=== PATIENT | male | born 1945 | race Caucasian/White ===

== ENCOUNTER → 2016-04-02 | Outpatient (CLI) | payer OTHER ==
[~2016-04-02] MED LIST: IOPAMIDOL (ISOVUE-370) 150 ML BTL IV ONE
[2016-04-02 15:03] LABS: CREATININE 0.7 mg/dL (0.7-1.3); GLOMERULAR FILTRATION RATE > 60
--- NOTE | 2016-04-02 18:49 | CT ---
CT Angiography of the Abdomen and Pelvis Clinical Indications: Status post translumbar embolization August 30, 2015, of type II endoleak. Cont inued follow up. Technique: Thinly collimated multidetector helical data were obtained through the abdomen and pelvis during the administration of 100 mL of Isovue-370 IV contrast during the arterial phase of contrast enhancement. Repeat 5-mm images are obtained in venous phase. Images were then transferred to an in dependent workstation where multiplanar and three-dimensional reconstructions were performed by the r adiologist. Appropriate images were stored on PACS. Dose reduction techniques were utilized. Comparison: CT angiogram August 05, 2015. Findings CT Angiography: The type II endoleak at the posterolateral aspect of the sac is still present. The sac size is unchanged, at 5.9 x 5.4 cm. At this point, the exact source of this endoleak is unclear. Access into this sac is amenable from a posterolateral or even potentially an anterolateral approac h, with CT and fluoroscopy guidance combined. Otherwise, the stent-graft is without migration. Limbs are unchanged. CT Abdomen and Pelvis: Diverticulosis is again noted. There may be early diverticulitis at the ante rior aspect of the descending colon distally, image #314 of series #5. This is characterized by a si ngle diverticulum that shows some surrounding inflammation. No surrounding abscess or fluid collecti on. Moderate prostate enlargement is again noted. A right renal cyst is unchanged. Multiple calcificati ons in the liver and spleen are unchanged. The lung bases are clear. No developing adenopathy or ma ss. Impressions 1. Persistent endoleak, presumed type II. It is fairly low grade, not present in arterial phase, an d faint on venous phase. Nonetheless, it is contributing to a persistent sac size of 5.9 x 5.4 cm, w hich is larger than the preprocedural size of 4.7 x 4.9 cm. 2. Translumbar embolization is amenable from a percutaneous approach. It may need to be transcaval. 3. Query early developing diverticulitis involving an anterior diverticulum of the distal descending colon. I have discussed the above with the patient. We will call the patient to schedule for CT-fluoroscopy combined guided percutaneous sac embolization. The patient currently does not have any pain in the left lower quadrant, and is afebrile. He also do es not have a primary care physician at this point. I have asked the patient to keep track of his sy mptoms. If and when he develops pain and or fever, I have asked the patient to come to the Emergency Department for diagnosis and treatment of potential diverticulitis. E:jennifer
== END ==
LOC: FIMAGING 14:32
PROVIDERS: ATTEND Radiology Diagnostic Radiology
DX: Z09 Encounter for follow-up examination after completed treatment for conditions other than malignant neoplasm (principal); T82.898A Other specified complication of vascular prosthetic devices, implants and grafts, initial encounter; N40.0 Benign prostatic hyperplasia without lower urinary tract symptoms; K57.90 Diverticulosis of intestine, part unspecified, without perforation or abscess without bleeding
CPT/HCPCS: 74174; Q9967

== ENCOUNTER 2016-04-12 07:35 | Day surgery (SDC) | payer OTHER ==
[2016-04-12] MEDS ORDERED: PHENYLEPHRINE 10 MG/ML SDV ONE (07:58)
[2016-04-12 08:22] LABS: HEMATOCRIT 51.6 % (40.0-51.0); HEMOGLOBIN 18.2 g/dL (13.7-17.5)
[2016-04-12 08:38] LABS: INR 1.04 (0.83-1.16); PROTIME(PATIENT) 13.5 SEC (12.0-15.0)
[2016-04-12 08:39] LABS: APTT 28.2 SEC (23.0-38.0)
[2016-04-12 10:03] LABS: % IMMATURE GRANULYOCYTES 0.5 % (0.0-1.1); ABSOLUTE IMMATURE GRANULOCYTES 0.02 10^3/uL (0.00-0.10); ADD DIFF? NO; ADD MORPH? NO; ADD SCAN? NO; ATYPICAL LYMPHOCYTE FLAG 10 (0-99); FRAGMENT RBC FLAG 0 (0-99); HEMATOCRIT 50.9 % (40.0-51.0); HEMOGLOBIN 18.2 g/dL (13.7-17.5); LEFT SHIFT FLG 0 (0-99); LIPEMIA HEMOLYSIS FLAG 90 (0-99); MEAN CELL HEMOGLOBIN 37.6 pg (27.9-34.1); MEAN CELL HEMOGLOBIN CONCENTR. 35.8 g/dL (32.4-36.7); MEAN CELL VOLUME 105.2 fL (81.5-99.8); MEAN PLATELET VOLUME 10.8 fL (8.7-11.7); PLATELET CLUMPS FLAG 0 (0-99); PLATELET COUNT 116 10^3/uL (150-400); RED BLOOD CELL COUNT 4.84 10^6/uL (4.40-6.38); RED CELL DISTRIBUTION WIDTH 13.1 % (11.5-15.2)
[2016-04-12 10:27] LABS: ANION GAP 11 mEq/L (8-16); CALCIUM 8.5 mg/dL (8.5-10.4); CARBON DIOXIDE 26 mEq/l (22-31); CHLORIDE 105 mEq/L (97-110); CREATININE 0.7 mg/dL (0.7-1.3); GLOMERULAR FILTRATION RATE > 60; GLUCOSE 114 mg/dL (70-100); POTASSIUM 5.6 mEq/L (3.5-5.2); SODIUM 142 mEq/L (134-144); SPECIMEN HEMOLYSIS 194
--- NOTE | 2016-04-12 10:57 | CPEKG ---
Heart Rate: 88 RR Interval: 682 P-R Interval: 192 QRSD Interval: 140 QT Interval: 380 QTC Interval: 460 P [place]: 17 QRS [place]: -76 T Wave [place]: 28 EKG Severity - ABNORMAL ECG - EKG Impression: SINUS RHYTHM EKG Impression: RBBB AND LAFB Electronically Signed By: Chau Hadley 12-Apr-2016 19:18:00
--- NOTE | 2016-04-12 11:43 | DX ---
Portable Chest, Single View on April 12, 2016 History: Preoperative evaluation. Aneurysm. COPD. Comparison: July 2011. Findings: Heart size is within normal limits. Aorta is tortuous indicating atherosclerotic disease. C alcified hilar lymph nodes are seen bilaterally and calcified pulmonary nodules bilaterally indicatin g chronic granulomatous disease, stable in appearance. No evidence of acute airspace consolidation. N o evidence for pleural effusion or pneumothorax. Degenerative change is seen in the cervical spine an d thoracic spine. Impression: No evidence for acute cardiopulmonary abnormality. Chronic findings as above.
[2016-04-12] MEDS ORDERED: MIDAZOLAM 2 MG/2 ML VIAL ONE (13:04)
[2016-04-12] MEDS ORDERED: ROCURONIUM 100 MG/10 ML VIAL ONE (13:25)
[2016-04-12] MEDS ORDERED: SUCCINYLCHOLINE CHLORIDE 200 MG/10 ML VIAL ONE (13:25)
[2016-04-12] MEDS ORDERED: PROPOFOL 200 MG/20 ML VIAL ONE (14:40)
[2016-04-12] MEDS ORDERED: PROPOFOL/EMULSION 500 MG/50 ML BOTTLE IV ONE (14:40)
[2016-04-12] MEDS ORDERED: fentaNYL 100 MCG/2 ML INJ ONE ×2 (15:55→18:49)
[2016-04-12] MEDS ORDERED: IOPAMIDOL (ISOVUE-300) 100 ML BTL IV ONE (18:58)
--- NOTE | 2016-04-13 18:43 | CT ---
CT-Guided Aneurysm Sac Access Fluoroscopy-Guided Aneurysm Sac Embolization Indication: Type II endoleak. Enlarging sac size. Informed Consent: Obtained from the patient. Risks and benefits were discussed. Crosscutting Measure: Patient's current list of medications including all known prescriptions, over- the-counters, herbals, and vitamin/mineral/dietary supplements are reviewed. Medications' name, dosa ge, frequency, and route of administration are confirmed. Patient is a non-smoker. Prophylactic Antibiotic: Ancef, 2 g, was ordered and administered for antimicrobial prophylaxis. Discontinuation of Prophylactic Antibiotic: Prophylactic antibiotic was given within 4 hours prior t o incision. There was an order to discontinue the antibiotic within 24 hours of procedure end time. VTE Prophylaxis: VTE prophylaxis is not medically necessary for this procedure. Technique: Patient is placed in prone position. A "timeout" procedure was performed to identify the correct patient and the correct procedure. 1% Xylocaine was used for local anesthetic. All element s of maximal sterile barrier technique, including cap, mask, sterile gown, sterile gloves, large ster ile sheet, hand hygiene, and 2% chlorhexidine for cutaneous antisepsis, followed. When ultrasound is used, sterile gel and probe covers are used. Right posterolateral approach is chosen. A grid is placed on the patient. A skin amari is performed. Under CT guidance, the access site is localized, an 18-gauge, 20-cm Chiba needle is inserted, and a dvanced under CT guidance eventually until it enters the sac at the location of the leak. Landmarks are used. When the stylet was removed, brisk blood flow returned, indicating access into the endoleak. 0.035, 8-cm Amplatz wire was then advanced through the needle, and coiled in the aneurysm sac. Needle was t hen removed. The wire was then coiled externally and secured in place. The patient was then transferred in prone position to Interventional Radiology. Under biplane fluoro scopy, Kumpe catheter was advanced over the wire into the sac. Saccogram was performed, showing two 1-mm size lumbar arteries, one superior, one inferior, that is contributing to the leak. Dave embolization was performed. A total of 8 vials of [place] was subsequently administered using road map technique. This satisfactorily covered all of the superior and inferior distribution of the aneu rysm sac. On the right side anteriorly, coil embolization was performed using 14-mm Belkis coils. On the left, attempt was made to back coil with Nesters after [place] embolization. This did not prove to be succes sful. However, at that point, there was absolutely no return of blood through the hub of the Kumpe c atheter. The leak has stopped. Fluoroscopy: 21.4 minutes, 26 images. Impressions 1. Type II endoleak from two very small lumbar arteries. 2. Sac embolization performed via percutaneous approach with both [place] and Belkis coils. Medication: General anesthesia was provided. Comment: With every incision and needle stick, this patient has significant bleeding, more so than w ould be expected with normal needle sticks and incisions. His platelet count was low 100s. His louisa tocrit was normal. His coagulation panel was normal. The degree of oozing he had with needle sticks suggests to me the possibility of poor platelet functi on. This indirectly suggests to me liver disease. The patient is known to be a heavy drinker. I th ink this actually has contributed to presence of a persistent endoleak because 1-mm vessels in genera l do not cause type II endoleaks. This was discussed in detail with the patient's . I have asked him to perhaps follow up with the patient's primary care physician to further discuss potential evaluation, if needed.
== END 2016-04-12 21:05 | disposition home or self-care (01) ==
LOC: FIMAGING 07:35
PROVIDERS: ATTEND Radiology Diagnostic Radiology
PROC: 04L03DZ Occlusion of Abdominal Aorta with Intraluminal Device, Percutaneous Approach (ICD-10-PCS; principal; 2016-04-12 18:55)
DX: T82.898A Other specified complication of vascular prosthetic devices, implants and grafts, initial encounter (principal); I71.4 Abdominal aortic aneurysm, without rupture; J44.9 Chronic obstructive pulmonary disease, unspecified; F17.200 Nicotine dependence, unspecified, uncomplicated
CPT/HCPCS: 37242; 71010; 75894; 77012; 93005; C1769; J0330; J1644; J2250; J2370; J2704; J3010; Q9967

== ENCOUNTER 2016-09-24 10:45 | Inpatient (IN) | payer OTHER ==
--- NOTE | 2016-09-24 10:50 | CPEKG ---
Heart Rate: 162 RR Interval: 370 P-R Interval: 150 QRSD Interval: 136 QT Interval: 304 QTC Interval: 500 P [place]: 0 QRS [place]: -69 T Wave [place]: 4 EKG Severity - ABNORMAL ECG - EKG Impression: WIDE COMPLEX TACHYCARDIA EKG Impression: RIGHT BUNDLE BRANCH BLOCK Electronically Signed By: Fabian Banerjee 24-Sep-2016 14:57:55
[2016-09-24] MEDS ORDERED: ADENOSINE 6 MG/2 ML VIAL ONE (10:59)
--- NOTE | 2016-09-24 11:03 | EDPHY ---
H & P - Personal History Tetanus Vaccine Date: 1997 - Medical/Surgical History Hx Diabetes: No - Social History Smoking Status: Current every day smoker Constitutional: Initial Vital Signs Temperature (C) 36.7 C 09/24/16 10:45 Heart Rate 160 H 09/24/16 10:45 Respiratory Rate 20 09/24/16 10:45 Blood Pressure 116/95 H 09/24/16 10:45 O2 Sat (%) 87 L 09/24/16 10:45 O2 Delivery Mode Nasal Cannula O2 (L/minute) 2 Allergies/Adverse Reactions: CATS Allergy (Mild, Uncoded 09/24/16 11:01) SNEEZING/RED EYES Home Medications: Medication Instructions Recorded Budesonide/Formoterol 160/4.5 1 puffs IH BID 09/24/16 [Symbicort 160-4.5 Mcg Inh (*)] Furosemide [Lasix 40 MG (*)] 60 mg PO DAILY 09/24/16 Multivitamins [Multivitamin (*)] 1 each PO Q2D 09/24/16 Medical Decision Making ED Course/Re-evaluation: CHIEF COMPLAINT: Rapid heart rate, dyspnea HISTORY OF PRESENT ILLNESS: This is a 71 y/o male with no prior diagnosed cardiac history complaining of with rapid heart rate for the last 1-2 weeks with acute onset dyspnea this morning. He has a history of COPD and requires home O2 at night. He started Lasix 3 weeks ago for leg swelling without improvement. He's had no prior cardiac workups. He denies abdominal pain, vomiting, diaphoresis, chest pain, fever, cough, recent illness, or recent no recent illness, medication changes apart from Lasix. REVIEW OF SYSTEMS: A 10 point review of systems was performed and is negative with the exception of the elements mentioned in the history of present illness. PHYSICAL EXAM: HR, BP, O2 Sat, RR. Temp noted General Appearance: Alert, well hydrated, appropriate, obese, and non-toxic appearing. Head: Atraumatic without scalp tenderness or obvious injury Eyes: Pupils equal, round, reactive to light and accommodation, EOMI, no trauma , no injection. Nose: Atraumatic, no rhinorrhea, clear. Throat: Mucus membranes moist. Neck: Supple, non-tender, no lymphadenopathy. Respiratory: No retractions, no distress, no wheezes, and no accessory muscle use. Lungs are clear to auscultation bilaterally. Cardiovascular: Tachycardic rate and rhythm, no murmurs, rubs, or gallops. Good capillary refill all extremities. Gastrointestinal: Abdomen is soft, non-tender, non-distended, no masses, no rebound, no guarding, no peritoneal signs. Musculoskeletal: Normal active ROM of all extremities, atraumatic. Bilateral pedal edema. Neurological: Alert, appropriate, and interactive. Nonfocal neuro exam. Skin: No rashes, good turgor, no nodules on palpation. PAST MEDICAL HISTORY: COPD - home O2 at night PAST SURGICAL HISTORY: Denies SOCIAL HISTORY: PCP: [facility] DIAGNOSTICS/PROCEDURES/CRITICAL CARE TIME: The 12 lead EKG was interpreted by myself. Wide complex tachycardia rate around 160. See hard copy and/or "tracemaster" electronic copy for interpretation. Repeat 12 lead EKG performed at double speed after Diltazem was interpreted by myself and shows atrial fibrillation with rapid rate. See hard copy and/or "tracemaster" electronic copy for interpretation. Critical care time spent by me, Dr. Banerjee, exclusively with this patient was 40 minutes, exclusive of PA time and exclusive of procedures. The organ system at risk was cardiovascular and respiratory and I gave IVF, Diltazem, adenosine, consulted with information assurance manager, and admitted patient prevent worsening of the patient's condition. DIFFERENTIAL DIAGNOSIS: The differential diagnosis for the patient's wide complex tachycardia included but was not limited to various causes of sinus tachycardia such as dehydration and medicines, SVT, atrial flutter, atrial fibrillation, pulmonary causes. MEDICAL DECISION MAKING: This is a 71 y/o male with no documented prior cardiac history who presents with a 1-2 week history of rapid heart rate and acute onset dyspnea this morning. He has an initial HR around 160, BP 124/102, 94% on O2. His EKG shows wide complex tachycardia. Because he has had symptoms for several days, we cannot safely perform a cardioversion at this time. Plan for IV, labs, cardiac monitoring, and IV adenosine. 1102: 12mg IV Adenosine administered. No change in rhythm. 20mg IV Diltazem and Diltazem drip ordered. Patient will require admission. 1115: Reassessed patient. Rate improved to rate around 130. Consulted with HERMAN Henriquez, cardiology. They will follow patient's admission. Heparin IV ordered. 1126: Dr. Medina accepts admission for rapid atrial fibrillation. 1250: Reassessed patient. He is feeling much improved. Rate now 110. - Data Points Laboratory Results: Laboratory Results 09/24/16 10:50 09/24/16 10:50 09/24/16 09/24/16 09/24/16 11:21 10:50 10:50 WBC RBC Hgb Hct MCV MCH MCHC RDW Plt Count MPV Neut % (Auto) Lymph % (Auto) [place] % (Auto) Eos % (Auto) Baso % (Auto) Nucleat RBC Rel Count Absolute Neuts (auto) Absolute Lymphs (auto) Absolute Monos (auto) Absolute Eos (auto) Absolute Basos (auto) Absolute Nucleated RBC Immature Gran % Immature Gran # PT 15.1 SEC H SEC (12.0-15.0) INR 1.19 H (0.83-1.16) APTT 28.0 SEC SEC (23.0-38.0) Sodium 138 mEq/L mEq/L (134-144) Potassium 4.7 mEq/L mEq/L (3.5-5.2) Chloride 95 mEq/L L mEq/L (97-110) Carbon Dioxide 27 mEq/l mEq/l (22-31) Anion Gap 16 mEq/L mEq/L (8-16) BUN 17 mg/dL mg/dL (7-23) Creatinine 0.9 mg/dL mg/dL (0.7-1.3) Estimated GFR > 60 Glucose 138 mg/dL H mg/dL (70-100) Calcium 9.2 mg/dL mg/dL (8.5-10.4) Magnesium 1.8 mg/dL mg/dL 1.9 mg/dL mg/dL (1.6-2.3) (1.6-2.3) Troponin I 0.042 ng/mL H ng/mL (0-0.034) NT-Pro-B Natriuret Pep 2100 pg/mL H pg/mL (0-125) 09/24/16 10:50 WBC 5.97 10^3/uL 10^3/uL (3.80-9.50) RBC 4.69 10^6/uL 10^6/uL (4.40-6.38) Hgb 17.4 g/dL g/dL (13.7-17.5) Hct 51.4 % H % (40.0-51.0) MCV 109.6 fL H fL (81.5-99.8) MCH 37.1 pg H pg (27.9-34.1) MCHC 33.9 g/dL g/dL (32.4-36.7) RDW 14.1 % % (11.5-15.2) Plt Count 101 10^3/uL L 10^3/uL (150-400) MPV 11.5 fL fL (8.7-11.7) Neut % (Auto) 61.4 % % (39.3-74.2) Lymph % (Auto) 23.8 % % (15.0-45.0) [place] % (Auto) 12.9 % % (4.5-13.0) Eos % (Auto) 0.5 % L % (0.6-7.6) Baso % (Auto) 0.7 % % (0.3-1.7) Nucleat RBC Rel Count 0.0 % % (0.0-0.2) Absolute Neuts (auto) 3.67 10^3/uL 10^3/uL (1.70-6.50) Absolute Lymphs (auto) 1.42 10^3/uL 10^3/uL (1.00-3.00) Absolute Monos (auto) 0.77 10^3/uL 10^3/uL (0.30-0.80) Absolute Eos (auto) 0.03 10^3/uL 10^3/uL (0.03-0.40) Absolute Basos (auto) 0.04 10^3/uL 10^3/uL (0.02-0.10) Absolute Nucleated RBC 0.00 10^3/uL 10^3/uL (0-0.01) Immature Gran % 0.7 % % (0.0-1.1) Immature Gran # 0.04 10^3/uL 10^3/uL (0.00-0.10) PT INR APTT Sodium Potassium Chloride Carbon Dioxide Anion Gap BUN Creatinine Estimated GFR Glucose Calcium Magnesium Troponin I NT-Pro-B Natriuret Pep Medications Given: Discontinued Medications Adenosine (Adenosine) 12 mg IVP EDNOW ONE Stop: 09/24/16 11:06 Last Admin: 09/24/16 11:12 Dose: 12 mg Diltiazem HCl (Cardizem 25 Mg/5 Ml Vial) 20 mg IVP EDNOW ONE Stop: 09/24/16 11:06 Last Admin: 09/24/16 11:12 Dose: 20 mg Heparin Sodium (Porcine) (Heparin Injection) 0 unit IVP EDNOW ONE PRN Reason: Protocol Stop: 09/24/16 11:22 Last Admin: 09/24/16 11:43 Dose: 6,500 units Diltiazem HCl 125 mg/ Dextrose 125 mls @ 0 mls/hr IV EDNOW ONE; As Directed PRN Reason: Protocol Stop: 09/24/16 11:06 Last Admin: 09/24/16 11:29 Dose: 125 mls Heparin Sodium (Porcine) (Heparin 50 Units/Ml (Premix)) 500 mls @ 0 mls/hr IV EDNOW ONE; Per Protocol PRN Reason: Protocol Stop: 09/24/16 11:22 Last Admin: 09/24/16 11:43 Dose: 500 mls Departure - Departure Disposition: [facility] Inpatient Acute Clinical Impression: Rapid atrial fibrillation, Peripheral edema Dyspnea Qualifiers: Dyspnea type: shortness of breath Qualified Code(s): R06.02 - Shortness of breath Condition: Fair Report Scribed for: Fabian Banerjee Report Scribed by: Lay Gutiérrez Date of Report: 09/24/16 Time of Report: 11:14
[2016-09-24] MEDS ORDERED: ADENOSINE 6 MG/2 ML VIAL IVP ONE (11:05)
[2016-09-24] MEDS ORDERED: DILTIAZEM 25 MG/5 ML VIAL IVP ONE ×2 (11:05)
[2016-09-24] MEDS ORDERED: DILTIAZEM 125 MG in D5W 125 ML IV ONE (11:05)
[2016-09-24] MEDS ORDERED: HEPARIN 10,000 UNIT/10 ML MDV IVP ONE (11:21)
[2016-09-24] MEDS ORDERED: HEPARIN/DEXTROSE 500 ML IV ONE (11:21)
[2016-09-24 11:31] LABS: INR 1.19 (0.83-1.16); PROTIME(PATIENT) 15.1 SEC (12.0-15.0)
[2016-09-24 11:36] LABS: % IMMATURE GRANULYOCYTES 0.7 % (0.0-1.1); ABSOLUTE IMMATURE GRANULOCYTES 0.04 10^3/uL (0.00-0.10); ADD DIFF? NO; ADD MORPH? NO; ADD SCAN? NO; ATYPICAL LYMPHOCYTE FLAG 0 (0-99); FRAGMENT RBC FLAG 0 (0-99); HEMATOCRIT 51.4 % (40.0-51.0); HEMOGLOBIN 17.4 g/dL (13.7-17.5); LEFT SHIFT FLG 20 (0-99); LIPEMIA HEMOLYSIS FLAG 90 (0-99); MEAN CELL HEMOGLOBIN 37.1 pg (27.9-34.1); MEAN CELL HEMOGLOBIN CONCENTR. 33.9 g/dL (32.4-36.7); MEAN CELL VOLUME 109.6 fL (81.5-99.8); MEAN PLATELET VOLUME 11.5 fL (8.7-11.7); PLATELET CLUMPS FLAG 10 (0-99); PLATELET COUNT 101 10^3/uL (150-400); RED BLOOD CELL COUNT 4.69 10^6/uL (4.40-6.38); RED CELL DISTRIBUTION WIDTH 14.1 % (11.5-15.2)
--- NOTE | 2016-09-24 11:41 | CPEKG ---
Heart Rate: 130 RR Interval: 462 QRSD Interval: 138 QT Interval: 336 QTC Interval: 494 QRS [place]: -71 T Wave [place]: -48 EKG Severity - ABNORMAL ECG - EKG Impression: ATRIAL FLUTTER, A-RATE 312 EKG Impression: RIGHT BUNDLE BRANCH BLOCK EKG Impression: INFERIOR INFARCT, AGE INDETERMINATE Electronically Signed By: Fabian Banerjee 24-Sep-2016 14:57:55
[2016-09-24 11:47] LABS: ANION GAP 16 mEq/L (8-16); CALCIUM 9.2 mg/dL (8.5-10.4); CARBON DIOXIDE 27 mEq/l (22-31); CHLORIDE 95 mEq/L (97-110); CREATININE 0.9 mg/dL (0.7-1.3); GLOMERULAR FILTRATION RATE > 60; GLUCOSE 138 mg/dL (70-100); MAGNESIUM 1.9 mg/dL (1.6-2.3); POTASSIUM 4.7 mEq/L (3.5-5.2); SODIUM 138 mEq/L (134-144)
[2016-09-24 12:36] LABS: MAGNESIUM 1.8 mg/dL (1.6-2.3)
[2016-09-24 12:49] LABS: TROPONIN I 0.042 ng/mL (0-0.034)
[2016-09-24] MEDS ORDERED: ONDANSETRON DISINTEGRATING 4 MG TAB PO PRN (13:51)
[2016-09-24] MEDS ORDERED: oxyCODONE IR 5 MG TAB PO PRN (13:51)
[2016-09-24] MEDS ORDERED: ACETAMINOPHEN 325 MG TAB PO PRN (13:51)
[2016-09-24] MEDS ORDERED: ONDANSETRON 4 MG/2 ML VIAL IVP PRN (13:51)
[2016-09-24] MEDS ORDERED: HEPARIN 10,000 UNIT/10 ML MDV IVP PRN (13:57)
[2016-09-24] MEDS ORDERED: DILTIAZEM 125 MG in D5W 125 ML IV SCH (14:00)
[2016-09-24] MEDS ORDERED: HEPARIN/DEXTROSE 500 ML IV SCH (14:00)
--- NOTE | 2016-09-24 14:29 | GHP ---
[f rep st] HISTORY AND PHYSICAL DATE OF ADMISSION: 09/24/2016 CHIEF COMPLAINT: Peripheral edema. HISTORY OF PRESENT ILLNESS: This is a 71-year-old man with no previous cardiac history who presents with worsening peripheral edema. This started about 1 month ago. It is also associated with some shortness of breath that is worse when he is lying down, about a 20 pound weight gain. He has not h ad any palpitations or chest pain. He saw his family practice doctor about 3 weeks ago, started him on Lasix and ordered an echocardiogram. He thus presented to the ED today with ongoing worsening s hortness of breath. In the ED he was found to be in atrial fibrillation with RVR. He received adenosine without respons e. Started on a diltiazem drip. PAST MEDICAL/SURGICAL HISTORY: 1. COPD. 2. Ongoing tobacco use. 3. Chronic respiratory failure using nocturnal oxygen. 4. Abdominal aortic aneurysm status post stenting. 5. Distant foot surgery. MEDICATIONS: Please see medication reconciliation. ALLERGIES: Cats. FAMILY HISTORY: His father had atrial fibrillation. SOCIAL HISTORY: Smokes and drinks about a double a night. REVIEW OF SYSTEMS: A 10-point review of systems is conducted and is negative except per HPI. PHYSICAL EXAM: VITAL SIGNS: Blood pressure 105/78, heart rate 110, respiration rate 18, saturating 92% on 2 L. Temperature 36.8. GENERAL: The patient is a very pleasant man who is resting in bed comfortably, in no acute distress. HEENT: Shows him to be normocephalic, atraumatic. CARDIOVASCUL AR: Exam shows him to be tachycardic. He is irregularly irregular. I do not appreciate any murmur s, rubs, or gallops though they are difficult to hear given his rapid heart rate. ABDOMEN: Is mild ly distended, soft, no masses appreciated. PULMONARY: Shows lungs with mild external wheezes. The re are no rales. SKIN: Exam shows no rash. exam: No Moe. NEUROLOGIC: Exam shows him to be alert and oriented x3. He is moving all extremities. PSYCHIATRIC: Exam shows normal mood and aff ect. EXTREMITIES: Shows him to have 3+ bilateral lower extremity edema. LABS: His MCV is 109, initial INR was 1.19. Basic metabolic panel is normal. Initial troponin 0.0 42. BNP is 2100. DATA: 1. I reviewed his chart, including Dr. Banerjee's note as well as previous admission for triple A st enting. 2. ECG, which I personally viewed and interpreted, shows him to be in A flutter. He is rapid. He has a right bundle branch block. He has Q-waves in his inferior leads. IMPRESSION AND PLAN: This is a 71-year-old man with new atrial fibrillation with RVR as well as hea rt failure. 1. Atrial fibrillation with rapid ventricular response: New diagnosis. Better controlled on dilti azem. I will continue his diltiazem drip. He has also been instituted on a heparin drip, I will sw itch him to Lovenox tonight. Cardiology has been alerted. Unclear etiology. This is associated wi th some heart failure. Agree with echocardiogram which has been performed, but not read yet. He harrison s a right bundle branch block as well as Q-waves in his inferior leads. We will trend his troponins . Query left heart catheterization during this admission as well per Cardiology. 2. Chronic obstructive pulmonary disease/tobacco use: We will check a chest x-ray to look for othe r signs of left-sided heart failure. Otherwise, we will continue his inhalers and provide him suppl emental oxygen as needed. 3. Alcohol use/macrocytosis: Does not appear to be in withdrawal or acutely intoxicated. Not sure if he is underestimating the amount that he drinks or not. We will follow him for withdrawal thoug h I am hopeful that we will not have this issue. 4. AAA status post stent: He clearly has known vascular disease. 5. Code status: He would like to be full code. His POA would be Ligia Jefferson, his . /[id number]/MODL
[2016-09-24] MEDS: NICOTINE 21 MG/24 HR PATCH TD SCH (15:50)
--- NOTE | 2016-09-24 16:11 | ECHO ---
[id number] + + [address] : : [place] [address] : : [phone] + + Adult Echocardiographic Report + -----+ :Name: NARA KIMBALL SStudy Date: 09/24/2016 11:59 AM BP: 115/70 mmHg : : Hospital Admission Number: [id number] Location : 2: :: 1945 Gender: Male Height: 73 in : :Age: 71 yrs Race: WH Weight: 240 lb : :Reason For Study: chest pain afib : : BSA: 2.3 meters2 : :History: edema, sob rapid a-fib : + -----+ MMode/2D Measurements \T\ Calculations IVSd: 1.2 cm RVDd: 3.9 cm FS: 28.3 % % IVS thick: 8.6 % IVSs: 1.3 cm LVIDd: 5.6 cm EDV(Teich): LVPWd: 1.2 cm LVIDs: 4.0 cm 150.5 ml LVPWs: 1.9 cm ESV(Teich): 69.2 ml EF(Teich): 54.0 % MV Diam: 4.1 cm Ao root diam: LVOT diam: 2.3 cm LVLd ap4: 8.7 cm 3.5 cm LVOT area: 4.2 cm2 EDV(MOD-sp4): 165.0 ml LVLs ap4: 7.4 cm ESV(MOD-sp4): 90.0 ml EF(MOD-sp4): 45.5 % SV(MOD-sp4): 75.0 ml Normal Measurement Values: + + :LVIDd (3.5-5.7cm) IVSd (0.6-1.1cm) LVPWd (0.6-1.1cm) Aortic Root (2.0-3.7cm)Left Atrium (1.5-4.0cm): :LV Vol(d) (76-115ml) LV Vol(s) (29-48ml) Ejec Fraction (50-65%)PV Gigi (0.6- 1.2m/s) TV Gigi (0.4-1.0m/s) : :MV E Gigi (0.8-1.0m/s)MV A Gigi (0.3-1.0m/s)LVOT Gigi (0.7-1.2m/s) Asc Ao Gigi ( 0.9-1.8m/s) : + + Doppler Measurements \T\ Calculations MV E max gigi: MV area (1 diam): Ao V2 max: LV V1 max: 102.0 cm/sec 13.2 cm2 96.8 cm/sec 85.2 cm/sec MV Flow area(1diam):Ao max PG: LV V1 max P.8 mmHg 2.9 mmHg 13.2 cm2 KAN(V,D): 3.7 cm2LV V1 mean P.0 mmHg LV V1 mean: 64.4 cm/sec LV V1 VTI: 13.3 cm MR max gigi: SV(LVOT): 55.3 ml PA V2 max: TR max gigi: 454.0 cm/sec 54.8 cm/sec 223.3 cm/sec MR max PG: PA max PG: TR max P.4 mmHg 1.2 mmHg 20.3 mmHg RAP systole: 15.0 mmHg RVSP(TR): 35.3 mmHg Left Ventricle The left ventricle is normal in size. There is mild concentric left ventricular hypertrophy. Left ventricular systolic function is mildly reduced. Ejection Fraction = 45%. Diastolic Function Indeterminate due to atrial fibrillation.. Difficult to assess for regional wall motion due to rapid atrial fibrillation. Right Ventricle Borderline right ventricular enlargement. The right ventricular systolic function is mildly reduced. Atria The left atrium is mild to moderately dilated. The Left Atrial Volume is 40 ml/m2. The right atrium is mildly dilated. A dilated inferior vena cava suggests increased right atrial pressure. The lack of respiratory variation in the inferior vena cava diameter is noted. Mitral Valve The mitral valve leaflets appear thickened, but open well. There is no mitral valve stenosis. There is moderate to severe mitral regurgitation. The mitral regurgitant jet is eccentrically directed. Mild pulmonary vein reversal noted. The mitral regurgitant jet is anteriorly directed, which is consistent with posterior leaflet pathology. Tricuspid Valve The tricuspid valve is normal in structure and function. There is no tricuspid stenosis. There is mild tricuspid regurgitation. Right ventricular systolic pressure is 35mmHg. There is Doppler evidence for mild pulmonary hypertension. Aortic Valve The aortic valve is trileaflet. There is no aortic stenosis. There is no aortic insufficiency. Pulmonic Valve The pulmonic valve is not well visualized. There is no pulmonic valvular regurgitation. Great Vessels The aortic root is normal size. Borderline dilated ascending aorta. Pericardium/Pleural trivial pericardial effusion. Conclusion A two-dimensional transthoracic echocardiogram with pulsed and continuous Doppler was performed. Patient's rhythm is rapid atrial fibrillation. There is mild concentric left ventricular hypertrophy. Left ventricular systolic function is mildly reduced. Ejection Fraction = 45%. Difficult to assess for regional wall motion due to rapid atrial fibrillation. Diastolic Function Indeterminate due to atrial fibrillation.. Borderline right ventricular enlargement. The right ventricular systolic function is mildly reduced. The left atrium is mild to moderately dilated. The Left Atrial Volume is 40 ml/m2. The right atrium is mildly dilated. A dilated inferior vena cava suggests increased right atrial pressure. The lack of respiratory variation in the inferior vena cava diameter is noted. There is moderate to severe mitral regurgitation. The mitral regurgitant jet is eccentrically directed. The mitral regurgitant jet is anteriorly directed, which is consistent with posterior leaflet pathology. Mild pulmonary vein reversal noted. There is mild tricuspid regurgitation. There is Doppler evidence for mild pulmonary hypertension. Right ventricular systolic pressure is 35mmHg. Borderline dilated ascending aorta. Trivial pericardial effusion. Final Reading Physician: Kirk Murillo signed on 09/24/2016 04:10 PM Ordering Physician: Martinez Romano Performed By: Marta Bauman
[2016-09-24 17:15] LABS: COLOR YELLOW; LEUKOCYTE ESTERASE,URINE NEGATIVE (NEGATIVE); NITRITE,URINE NEGATIVE (NEGATIVE)
[2016-09-24] MEDS: ENOXAPARIN 120 MG/0.8 ML SYR SC SCH (20:52)
[2016-09-24] MEDS: BUDESONIDE/FORMOTEROL 160/4.5 60 PUFFS/MDI IH SCH (20:54)
--- NOTE | 2016-09-24 21:39 | GCON ---
[f rep st] CONSULTATION CARDIOLOGY CONSULTATION DATE OF CONSULTATION: 09/24/2016 REFERRING PHYSICIAN: Raj Medina MD REASON FOR CONSULTATION: 1. Persistent new onset atrial flutter with a rapid ventricular response of unknown duration. 2. Probable nonischemic cardiomyopathy. 3. Acute systolic congestive heart failure. HISTORY OF PRESENT ILLNESS: The patient is a 71-year-old male with no prior cardiac history. He pr esented to the emergency room today because of progressively worsening dyspnea on exertion and moder ate to severe lower extremity edema. He says that these issues had been slowly worsening over the p ast 4 weeks or so. It finally reached the point that he felt he needed to seek medical attention. In the emergency room, his EKG demonstrated atrial flutter with a ventricular rate of 160 BPM. The patient says that he did not have a sensation of palpitations or tachycardia. His troponin was mini mick elevated at 0.042 and his BNP was elevated at 2100. 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 He underwent an embolization procedure in March of this year for endoleak. In 2009 a nuclear str ess test was abnormal and led to a cardiac catheterization which demonstrated normal left ventricula r systolic function and angiographically normal coronary arteries. PAST MEDICAL HISTORY: 1. COPD. His COPD is graded as moderate. He is followed by Dr. Rashad Ortega. 2. Hypertension. This was an issue in the past, but he has not been on antihypertensive medication for the past several years. 3. Chronic right bundle branch block. MEDICATIONS: His home medications consist of Symbicort and Lasix 40 mg daily, which was started rec ently because of his edema. ALLERGIES: No known drug allergies. FAMILY HISTORY: Noncontributory. SOCIAL HISTORY: He is . He has adult offspring. 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 If he continues to smoke and has done so all of his adult life. He currently smokes a half pa ck per day. He has a double cocktail most evenings. REVIEW OF SYSTEMS: Apart from the issues mentioned in the history of present illness, a 10-point re view was negative. PHYSICAL EXAMINATION: VITAL SIGNS: Heart rate in the 80s with atrial flutter on the monitor. Bloo d pressure 105/69, O2 saturation 92% on 2 L of nasal cannula oxygen. GENERAL: An obese, elderly ma le in no acute distress. He is alert and oriented x3. HEAD AND NECK: No scleral icterus. Mucous membranes moist. Carotid pulses 2+ without bruits. There is no JVD. CHEST: Lung gomez clear to auscultation bilaterally. CARDIAC: Irregular rhythm at a normal rate. No murmur, rub, or gallop. ABDOMEN: Soft, nontender, nondistended without masses. EXTREMITIES: 2+ pulses. He has at least 3+ bilateral lower extremity edema. LABORATORY STUDIES: Sodium 138, potassium 4.7, BUN and creatinine 17 and 0.9. Troponin 0.042. BNP 2100. TSH is normal at 4.11. His CBC demonstrates a white blood cell count of 5.97 with hemoglobi n and hematocrit of 17.4 and 51.4. Platelet count 101,000. ECG: His initial ECG demonstrated atrial flutter with a ventricular rate of 162 BPM. He has a righ t bundle branch block which had been seen on old ECGs as well. His 2nd ECG following initiation of intravenous diltiazem demonstrated atrial flutter with classic negative saw-toothed waves in the inf erior leads. Ventricular rate was approximately 50 BPM. He has inferior Q-waves which have also be en seen on previous ECGs. Echocardiogram: Please refer to the formal echocardiographic report. He has a normal left ventricu lar chamber size. LV ejection fraction is moderately decreased at 45%. There is no regional variat ion in contractility. He has mild mitral leaflet thickening and at least moderate anteriorly direct ed mitral regurgitation. Mild tricuspid regurgitation is present with an estimated PA systolic pres sure of 35 mmHg. IMPRESSION: This is a 71-year-old male who now presents with acute systolic congestive heart failur e. He has significant mitral regurgitation which is likely contributing. He was found to be in per sistent atrial flutter with a rapid ventricular response. I suspect this arrhythmia started few wee ks ago and has culminated in moderately reduced left ventricular function. He is now rate controlle d on intravenous diltiazem. Intravenous heparin has been started as well. His blood pressure has b een marginal. Therefore, intravenous Lasix has not been started yet. PLAN: We will continue his intravenous diltiazem overnight. He will be n.p.o. after midnight for p otential SULLY-guided cardioversion tomorrow. We will plan on transitioning him to an oral calcium ch astrid shelby. Options for antiarrhythmic therapy and ablation are available if he has recurrences of his atrial arrhythmia. He will need to be followed longitudinally and reassessed in approximatel y 3 months for recovery of his left ventricular function. As soon as feasible, diuresis needs to be started. /[id number]/MODL
[2016-09-24] MEDS: TEMAZEPAM 15 MG CAP PO PRN (22:47)
[2016-09-25] MEDS: TEMAZEPAM 15 MG CAP PO PRN (00:31)
[2016-09-25 05:27] LABS: % IMMATURE GRANULYOCYTES 0.8 % (0.0-1.1); ABSOLUTE IMMATURE GRANULOCYTES 0.05 10^3/uL (0.00-0.10); ADD DIFF? NO; ADD MORPH? NO; ADD SCAN? NO; ATYPICAL LYMPHOCYTE FLAG 0 (0-99); FRAGMENT RBC FLAG 0 (0-99); HEMATOCRIT 45.8 % (40.0-51.0); HEMOGLOBIN 15.6 g/dL (13.7-17.5); LEFT SHIFT FLG 20 (0-99); LIPEMIA HEMOLYSIS FLAG 90 (0-99); MEAN CELL HEMOGLOBIN 37.1 pg (27.9-34.1); MEAN CELL HEMOGLOBIN CONCENTR. 34.1 g/dL (32.4-36.7); MEAN PLATELET VOLUME 11.9 fL (8.7-11.7); PLATELET CLUMPS FLAG 0 (0-99); PLATELET COUNT 90 10^3/uL (150-400); RED CELL DISTRIBUTION WIDTH 13.9 % (11.5-15.2)
[2016-09-25 05:35] LABS: ANION GAP 12 mEq/L (8-16); CALCIUM 8.8 mg/dL (8.5-10.4); CARBON DIOXIDE 30 mEq/l (22-31); CHLORIDE 95 mEq/L (97-110); CREATININE 0.9 mg/dL (0.7-1.3); GLOMERULAR FILTRATION RATE > 60; GLUCOSE 108 mg/dL (70-100); POTASSIUM 4.2 mEq/L (3.5-5.2); SODIUM 137 mEq/L (134-144)
[2016-09-25] MEDS: BUDESONIDE/FORMOTEROL 160/4.5 60 PUFFS/MDI IH SCH ×2 (07:30→18:12)
[2016-09-25] MEDS: ENOXAPARIN 120 MG/0.8 ML SYR SC SCH ×2 (07:31→17:17)
[2016-09-25] MEDS ORDERED: ALBUTEROL 3 ML DEYVIAL IH PRN (09:49)
--- NOTE | 2016-09-25 09:50 | HOSPPROG ---
Hospitalist Progress Note Assessment/Plan: A flutter / RVR - New onset. TSH nl. Echo shows mod/severe MR. SULLY/CV planned today, discussed case with Dr. Caballero. -cont dilt drip -Lovenox for CVA prevention -transition to oral dilt post-cardioversion Acute systolic heart failure - likely precipitated by flutter and VHD (mod- severe MR). Volume overloaded. -CV as above -start IV Lasix, SBP better this am -monitor I&O's, daily wts MR - followed by cards, will likely need valve surgery at some point COPD - right heart strain evident on echo. No acute exacerbation -cont symbicort -add spiriva, prn nebs Chronic hypoxemic respiratory failure - 2/2 COPD / HF, on nocturnal O2 at home. requiring 4 LPM here -diurese as above -COPD management as above -wean O2 as able Alcohol use - monitor CIWA Full code DVT PPLX - Lovenox Dispo - change to inpt as will need ongoing hospitalization for management of acute HF, flutter Subjective: Pt feels much better than yesterday. Breathing a bit improved, though continues to c/o LE edema and orthopnea. No CP. Uses 2 LPM O2 at night. Objective: Vital Signs Temp Pulse Resp BP Pulse Ox 37.0 C 100 20 112/78 98 09/25/16 07:34 09/25/16 07:34 09/25/16 07:34 09/25/16 07:34 09/25/16 07:34 Laboratory Results 09/25/16 03:43 09/25/16 03:43 09/24/16 09/25/16 09/26/16 05:59 05:59 05:59 Intake Total 1335 Output Total 400 Balance 935 PT 15.1 SEC (12.0-15.0) H 09/24/16 11:21 INR 1.19 (0.83-1.16) H 09/24/16 11:21 - Physical Exam Constitutional: no apparent distress Eyes: PERRL Ears, Nose, Mouth, Throat: moist mucous membranes Cardiovascular: systolic murmur, irregularly irregular, JVD Respiratory: no respiratory distress, reduced air movement Gastrointestinal: normoactive bowel sounds, soft, non-tender abdomen Skin: warm Musculoskeletal: full muscle strength, other (2+ B/L LE pitting edema) Neurologic: AAOx3 Psychiatric: interacting appropriately ICD10 Worksheet Patient Problems: Problems Problem Status Onset Dyspnea Acute Peripheral edema Acute Rapid atrial fibrillation Acute
[2016-09-25] MEDS: TIOTROPIUM INHALER 18 MCG/DOSE 5 DOSE/MDI IH SCH (10:57)
[2016-09-25] MEDS: FUROSEMIDE 40 MG/4 ML VIAL IVP SCH (11:46)
[2016-09-25] MEDS: POTASSIUM CL 20 MEQ TAB PO SCH (11:46)
[2016-09-25] MEDS: NICOTINE 21 MG/24 HR PATCH TD SCH (12:10)
[2016-09-25] MEDS ORDERED: NS 1,000 ML IV SCH (12:45)
[2016-09-25] MEDS ORDERED: PROPOFOL 200 MG/20 ML VIAL ONE (14:58)
--- NOTE | 2016-09-25 15:36 | CPEKG ---
Heart Rate: 75 RR Interval: 800 P-R Interval: 216 QRSD Interval: 142 QT Interval: 436 QTC Interval: 487 P [place]: -9 QRS [place]: -63 T Wave [place]: -38 EKG Severity - ABNORMAL ECG - EKG Impression: RIGHT BUNDLE BRANCH BLOCK EKG Impression: Resolution of atrial flutter since September 24, 2016. 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 Electronically Signed By: Baudilio Silveira 25-Sep-2016 17:01:53
[2016-09-25] MEDS ORDERED: NITROGLYCERIN 0.4 MG BTL SL PRN (16:03)
[2016-09-25] MEDS ORDERED: FUROSEMIDE 20 MG/2 ML VIAL ONE (16:37)
[2016-09-25] MEDS ORDERED: FUROSEMIDE 20 MG/2 ML VIAL IVP ONE (16:45)
[2016-09-25] MEDS: DILTIAZEM CD 180 MG CAP PO SCH (17:16)
--- NOTE | 2016-09-25 17:43 | ECHO ---
[id number] + + [address] : : [facility] [address] : : [phone] + + Adult Echocardiographic Report + -----+ :Name: NARA KIMBALLudy Date: 09/25/2016 02:55 PM : : Hospital Admission Number: [id number] Location : 203: :: 1945 Gender: Male : :Age: 71 yrs Race: WH : :Reason For Study: Eval BRAULIO : :History: Atrial Flutter, Pre cardioversion : + -----+ Left Ventricle Left ventricular systolic function is low normal. Atria No left atrial mass or thrombus visualized. No thrombus is detected in the left atrial appendage. Injection of contrast documented an interatrial shunt. The interatrial septum is intact with no evidence for an atrial septal defect. Mitral Valve The mitral valve is normal in structure and function. There is no mitral valve stenosis. There is severe mitral regurgitation. Tricuspid Valve Normal tricuspid valve. There is mild tricuspid regurgitation. Aortic Valve The aortic valve opens well. There is no aortic stenosis. There is no aortic insufficiency. Pericardium/Pleural There is no pericardial effusion. Conclusion A complete two-dimensional transthoracic echocardiogram was performed (2D, M-mode, Doppler and color flow Doppler). Left ventricular systolic function is low normal. No left atrial mass or thrombus visualized. No thrombus is detected in the left atrial appendage. Injection of contrast documented an interatrial shunt. The interatrial septum is intact with no evidence for an atrial septal defect. The mitral valve is normal in structure and function. There is no mitral valve stenosis. There is severe mitral regurgitation. The aortic valve opens well. There is no pericardial effusion. There is mild tricuspid regurgitation. Final Reading Physician: Dr Conchis Reynolds electronically signed on 09/25/2016 05:41 PM Ordering Physician: Martinez Romano Performed By: Dr Conchis Reynolds
--- NOTE | 2016-09-25 22:12 | CPIP ---
[f rep st] INVASIVE CARDIAC PROCEDURE DATE OF PROCEDURE: 09/25/2016 CARDIOVERSION REPORT INDICATIONS: Symptomatic atrial flutter. COMPLICATIONS: None apparent. DESCRIPTION OF PROCEDURE: N.p.o. status was confirmed, informed consent obtained, and time-out perf ormed. Sedation was provided by Dr. Gaitan of the anesthesia service. Because the patient has not b een consistently anticoagulated, he did undergo SULLY. Please see separate report. In summary, ai l left ventricular ejection fraction. Severe mitral regurgitation. No intracardiac thrombus. No a trial septal defect. We elected to proceed with cardioversion. The patient received a single 200 joule shock which conve rted him from atrial flutter to sinus rhythm with frequent PACs. 12-lead EKG is pending. CONCLUSIONS: 1. Successful direct current cardioversion. 2. Severe mitral regurgitation which will need to be further evaluated once he has maintained sinus rhythm. 3. Continue anticoagulation. 4. Patient is currently still being monitored by Anesthesia for some hypoxia. /[id number]/MODL
[2016-09-26 04:40] LABS: HEMATOCRIT 43.7 % (40.0-51.0); HEMOGLOBIN 14.9 g/dL (13.7-17.5); MEAN CELL HEMOGLOBIN 37.3 pg (27.9-34.1); MEAN CELL HEMOGLOBIN CONCENTR. 34.1 g/dL (32.4-36.7); MEAN CELL VOLUME 109.3 fL (81.5-99.8); RED CELL DISTRIBUTION WIDTH 13.7 % (11.5-15.2)
[2016-09-26 05:04] LABS: INR 1.22 (0.83-1.16); PROTIME(PATIENT) 15.4 SEC (12.0-15.0)
[2016-09-26 05:05] LABS: APTT 33.1 SEC (23.0-38.0)
[2016-09-26 05:13] LABS: ANION GAP 11 mEq/L (8-16); CALCIUM 8.6 mg/dL (8.5-10.4); CARBON DIOXIDE 30 mEq/l (22-31); CHLORIDE 97 mEq/L (97-110); CHOLESTEROL 124 mg/dL (140-220); CHOLESTEROL/HDL RATIO 3.35 RATIO (1.00-4.97); CREATININE 0.8 mg/dL (0.7-1.3); GLOMERULAR FILTRATION RATE > 60; GLUCOSE 91 mg/dL (70-100); HIGH DENSITY LIPOPROTEIN 37 mg/dL (40-65); LDL/HDL RATIO 1.86 RATIO (1.00-3.64); LOW DENSITY LIPOPROTEIN 69 mg/dL (80-100); NON-HIGH DENSITY LIPOPROTEIN 87 mg/dL (90-129); POTASSIUM 3.8 mEq/L (3.5-5.2); SODIUM 138 mEq/L (134-144); TRIGLYCERIDE 94 mg/dL (40-150); VERY LOW DENSITY LIPOPROTEINS 18 mg/dL (8-25)
[2016-09-26 05:29] LABS: MAGNESIUM 1.7 mg/dL (1.6-2.3)
[2016-09-26] MEDS ORDERED: DIAZEPAM 5 MG TAB PO ONE (06:00)
[2016-09-26] MEDS ORDERED: diphenhydrAMINE 25 MG CAP PO ONE ×2 (06:00→09:46)
[2016-09-26] MEDS ORDERED: ASPIRIN EC 325 MG TAB PO ONE ×2 (06:00→09:46)
[2016-09-26] MEDS: TIOTROPIUM INHALER 18 MCG/DOSE 5 DOSE/MDI IH SCH (08:54)
[2016-09-26] MEDS: BUDESONIDE/FORMOTEROL 160/4.5 60 PUFFS/MDI IH SCH ×2 (08:54→20:54)
--- NOTE | 2016-09-26 09:00 | CPEKG ---
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 EKG Impression: MULTIPLE ATRIAL PREMATURE COMPLEXES EKG Impression: RBBB AND LAFB EKG Impression: First degree AV block EKG Impression: No significant change from September 25, 2016 Electronically Signed By: Baudilio Silveira 26-Sep-2016 10:50:51
[2016-09-26] MEDS ORDERED: DIAZEPAM 5 MG TAB ONE (09:46)
[2016-09-26] MEDS ORDERED: FAMOTIDINE 20 MG TAB ONE (09:46)
[2016-09-26] MEDS ORDERED: LIDOCAINE 1% 300 MG/30 ML SDV ONE (11:47)
[2016-09-26] MEDS ORDERED: MIDAZOLAM 2 MG/2 ML VIAL ONE (11:47)
[2016-09-26] MEDS ORDERED: HEPARIN 10,000 UNIT/10 ML MDV ONE (11:47)
[2016-09-26] MEDS ORDERED: VERAPAMIL 5 MG/2 ML VIAL ONE (11:47)
[2016-09-26] MEDS ORDERED: fentaNYL 100 MCG/2 ML INJ ONE (11:47)
[2016-09-26] MEDS ORDERED: IOPAMIDOL (ISOVUE-370) 150 ML BTL IV ONE (11:48)
[2016-09-26] MEDS ORDERED: HYDROCODONE/APAP 5/325 TAB PO PRN (14:11)
[2016-09-26] MEDS ORDERED: ATROPINE SULFATE 1 MG/10 ML SYR IVP PRN (14:11)
--- NOTE | 2016-09-26 14:24 | PDDXCAT ---
Diagnostic Cath Note - . Date: 09/26/16 Manager [employer]: Federico (New diagnoses of cardiomyopathy, mitral regurgitation, and acute CHF.) - Procedure Access: right groin (Initial access in the right femoral artery and vein. Right heart cath performed via RFV. Left heart catheterization attempted via RFA. However, severe iliofemoral tortuosity distal to his prior abdominal aortoiliac stent graft prevented catheter manipulation. Switched to right radial approach.) Procedure: left heart catheterization, coronary angiography, left ventriculogram , right heart catheterization - Materials Left Heart Cath size: 5F Left Heart Cath materials: standard multipack (JL4, JR4, pigtail) Right Heart Cath size: 7F Right Heart Cath materials: PWP catheter - Findings-Left Heart Catheterization LM: Normal. LAD: Minimal irregularities. LCX: Minimal irregularities. RCA: Minimal irregularities. EDP: 26 mmHg LVEF: 40% with significant mitral regurgitation. Wall motion: Global hypokinesis. - Findings-Right Heart Catheterization RA: 16 mmHg RV: 54/10 mmHg PA: 54/30/38 mmHg O2 sat 72.8% PAOP: 28 mmHg AO: 110/80/68 mmHg O2 sat 95.1% CO: 5.9 L/min CI: 2.5 L/min/sq mtr Complications: None Estimated blood loss: <50ml Closure method: manual pressure (TR band for radial site.) Assessment: 1) Nonischemic cardiomyopathy with moderately reduced LV systolic function. 2) Minimal coronary atherosclerosis. 3) Moderate pulmonary hypertension. 4) Elevated LVEDP and PCWP. 5) Mitral regurgitation. Patient Problems: Problems Problem Status Onset Dyspnea Acute Peripheral edema Acute Rapid atrial fibrillation Acute
[2016-09-26] MEDS: FUROSEMIDE 40 MG/4 ML VIAL IVP SCH (14:28)
--- NOTE | 2016-09-26 15:03 | PDCARPN ---
Cardiology Progress Note Assessment/Plan: See cardiac catheterization report from earlier today. Nonischemic Cardiomyopathy- likely tachycardia mediated related to persistent atrial flutter with rapid ventricular response of unknown duration. Moderately reduced left ventricular systolic function. Will add low dose DIONTE-I. Acute Systolic CHF- has not had much response to bolus dose intravenous Lasix. Continues to exhibit significant peripheral edema. Will start intravenous Lasix drip. Mitral Regurgitation- moderate to severe by TTE and SULLY. No intrinsic pathology of the mitral valve. This suggests that his MR may be related to his cardiomyopathy/LV dilatation and that it could improve if his LV function recovers with appropriate medical therapy and control of PAFl. Atrial Flutter- maintaining sinus rhythm following cardioversion yesterday. Continue p.o. calcium channel shelby. Lovenox resumed. Will also start warfarin. 09/26/16 15:01 Subjective: No major complaints. Reviewed/Discussed With: family Objective: Vital Signs (8 Hrs) Temp Pulse Resp BP Pulse Ox 09/26/16 07:37 36.6 C 91 19 129/89 H 95 Intake/Output (24 Hrs) 09/25/16 09/26/16 09/27/16 05:59 05:59 05:59 Intake Total 200 Output Total 400 Balance -200 Intake: Oral (ml) 200 Output: Urine (ml) 400 Urinal 400 Other: Weight 118.3 kg Result Diagrams: 09/26/16 03:23 09/26/16 03:23 - Physical Exam Constitutional: no apparent distress, obese Eyes: anicteric sclera Ears, Nose, Mouth, Throat: moist mucous membranes Cardiovascular: regular rate and rhythm, no murmurs, no rubs, no gallops, other (3+ bilateral LE edema.) Respiratory: clear to auscultate bilat Gastrointestinal: normoactive bowel sounds, no tenderness, no masses Skin: no rashes Neurologic: AAOx3 Psychiatric: not anxious ICD10 Worksheet Patient Problems: Problems Problem Status Onset Rapid atrial fibrillation Acute Dyspnea Acute Peripheral edema Acute
--- NOTE | 2016-09-26 15:34 | HOSPPROG ---
Hospitalist Progress Note Assessment/Plan: A flutter / RVR - New onset. TSH nl. Echo shows mod/severe MR. SULLY/CV yesterday, maintains sinus today. -cont oral dilt -coumadin ordered for CVA prevention. -will let her drift up on coumadin and defer lovenox today given plts 82 -case discussed with Dr. Caballero Acute systolic heart failure with - likely precipitated by flutter and VHD (mod- severe MR). Volume overloaded. Minimal CAD on cath today. -Lasix drip per cards -monitor I&O's, daily wts -leon placed for I&O's given activity restriction post-cath MR - severe, discussed with Dr. Caballero. Hoping with maintenance of sinus rhythm and diuresis that this might improve as doesn't appear to have intrinsic valve disease. COPD - right heart strain evident on echo. No acute exacerbation -cont symbicort -added spiriva, prn nebs Chronic hypoxemic respiratory failure - 2/2 COPD / HF, on nocturnal O2 at home. requiring 4 LPM here -diurese as above -COPD management as above -wean O2 as able Alcohol use - monitor CIWA Full code DVT PPLX - Lovenox Dispo - cont inpt Subjective: Pt a bit distressed, still in CVC after cath, feels claustrophobic, anxious. No CP or SOB. Objective: Vital Signs Temp Pulse Resp BP Pulse Ox 36.6 C 91 19 129/89 H 95 09/26/16 07:37 09/26/16 07:37 09/26/16 07:37 09/26/16 07:37 09/26/16 07:37 Laboratory Results 09/26/16 03:23 09/26/16 03:23 09/25/16 09/26/16 09/27/16 05:59 05:59 05:59 Intake Total 200 Output Total 400 Balance -200 PT 15.4 SEC (12.0-15.0) H 09/26/16 03:23 INR 1.22 (0.83-1.16) H 09/26/16 03:23 - Physical Exam Constitutional: no apparent distress Eyes: PERRL Ears, Nose, Mouth, Throat: moist mucous membranes Cardiovascular: regular rate and rhythym Respiratory: no respiratory distress, inspiratory crackles Gastrointestinal: normoactive bowel sounds, soft, non-tender abdomen Skin: warm Musculoskeletal: other (b/l LE edema) Neurologic: AAOx3 Psychiatric: interacting appropriately, anxious ICD10 Worksheet Patient Problems: Problems Problem Status Onset Dyspnea Acute Peripheral edema Acute Rapid atrial fibrillation Acute
[2016-09-26] MEDS ORDERED: PROTOCOL POTASSIUM 1 DOSE MISC PRN (15:54)
[2016-09-26] MEDS ORDERED: LORazepam 2 MG/ML INJ IVP PRN (16:06)
[2016-09-26] MEDS: NICOTINE 21 MG/24 HR PATCH TD SCH ×2 (17:09→18:32)
[2016-09-26] MEDS: POTASSIUM CL 20 MEQ TAB PO SCH (18:32)
[2016-09-26] MEDS: FUROSEMIDE 100 MG in D5W 100 ML IV SCH (18:32)
[2016-09-26] MEDS: WARFARIN SODIUM 5 MG TAB PO SCH (18:32)
[2016-09-26] MEDS: DILTIAZEM CD 180 MG CAP PO SCH (18:32)
[2016-09-26] MEDS ORDERED: DILTIAZEM 25 MG/5 ML VIAL IVP ONE (21:30)
[2016-09-27] MEDS: WARFARIN SODIUM 5 MG TAB PO SCH (02:35)
[2016-09-27] MEDS: FUROSEMIDE 100 MG in D5W 100 ML IV SCH ×3 (03:39→23:48)
[2016-09-27 04:53] LABS: INR 1.16 (0.83-1.16); PROTIME(PATIENT) 14.8 SEC (12.0-15.0)
[2016-09-27] MEDS: BUDESONIDE/FORMOTEROL 160/4.5 60 PUFFS/MDI IH SCH ×2 (09:21→20:40)
[2016-09-27] MEDS: TIOTROPIUM INHALER 18 MCG/DOSE 5 DOSE/MDI IH SCH (09:23)
[2016-09-27] MEDS: POTASSIUM CL 20 MEQ TAB PO SCH (09:41)
[2016-09-27] MEDS: DILTIAZEM CD 180 MG CAP PO SCH (09:41)
[2016-09-27] MEDS: NICOTINE 21 MG/24 HR PATCH TD SCH (09:42)
[2016-09-27] MEDS ORDERED: AMIODARONE HCL 200 ML IV ONE (10:10)
[2016-09-27] MEDS ORDERED: AMIODARONE HCL 100 ML IV ONE (10:10)
--- NOTE | 2016-09-27 10:20 | HOSPPROG ---
Hospitalist Progress Note Assessment/Plan: A flutter / RVR - New onset. TSH nl. Echo shows mod/severe MR. SULLY/CV 08/26 -- > NSR, back in A fib 08/27. -starting amio per cards, dilt d/c'd -coumadin ordered for CVA prevention -will let his INR drift up on coumadin and defer lovenox given low plts, recheck today -case discussed with Dr. Caballero Acute systolic heart failure with - likely precipitated by flutter / rate related cardiomyopathy and VHD. Volume overloaded. Minimal CAD on cath 09/26. -Lasix drip per cards, >5 L net neg since yesterday, 4 kg down -monitor I&O's, daily wts -leon out Severe MR - Hoping with return of and maintenance of sinus rhythm, along with diuresis, that this might improve as he doesn't appear to have intrinsic valve disease. COPD - right heart strain evident on echo. No symptoms of acute exacerbation. -cont symbicort -added spiriva, prn nebs Chronic hypoxemic respiratory failure - 2/2 COPD / HF, on nocturnal O2 at home. requiring 4 LPM here -diurese as above -COPD management as above -wean O2 as able Alcohol use - No e/o withdrawal, monitor CIWA Full code DVT PPLX - Lovenox if plts >100 (cbc pending) Dispo - cont inpt Subjective: Pt feels better today, notes a lot of uop. Leon out. No CP or SOB. No palpitations. A fib recurred overnight though asymptomatic. He is hungry. Objective: Vital Signs Temp Pulse Resp BP Pulse Ox 36.9 C 107 H 18 115/93 H 95 09/27/16 07:37 09/27/16 07:37 09/27/16 07:37 09/27/16 07:37 09/27/16 07:37 Laboratory Results 09/26/16 03:23 09/27/16 03:22 09/26/16 09/27/16 09/28/16 05:59 05:59 05:59 Intake Total 200 262 Output Total 400 4250 1325 Balance -200 -3988 -1325 PT 14.8 SEC (12.0-15.0) 09/27/16 03:22 INR 1.16 (0.83-1.16) 09/27/16 03:22 - Physical Exam Constitutional: no apparent distress Eyes: PERRL Ears, Nose, Mouth, Throat: moist mucous membranes Cardiovascular: irregularly irregular Respiratory: no respiratory distress, inspiratory crackles Gastrointestinal: normoactive bowel sounds, soft, non-tender abdomen Skin: warm Musculoskeletal: full muscle strength, other (2-3+ LE pitting edema persists) Neurologic: AAOx3 Psychiatric: interacting appropriately ICD10 Worksheet Patient Problems: Problems Problem Status Onset Dyspnea Acute Peripheral edema Acute Rapid atrial fibrillation Acute
[2016-09-27 10:47] LABS: HEMATOCRIT 50.2 % (40.0-51.0); MEAN CELL HEMOGLOBIN CONCENTR. 33.9 g/dL (32.4-36.7); MEAN CELL VOLUME 109.4 fL (81.5-99.8); RED BLOOD CELL COUNT 4.59 10^6/uL (4.40-6.38); RED CELL DISTRIBUTION WIDTH 13.5 % (11.5-15.2)
[2016-09-27 11:11] LABS: ANION GAP 11 mEq/L (8-16); CALCIUM 8.9 mg/dL (8.5-10.4); CARBON DIOXIDE 38 mEq/l (22-31); CHLORIDE 90 mEq/L (97-110); CREATININE 0.8 mg/dL (0.7-1.3); GLOMERULAR FILTRATION RATE > 60; GLUCOSE 117 mg/dL (70-100); POTASSIUM 3.4 mEq/L (3.5-5.2); SODIUM 139 mEq/L (134-144)
[2016-09-27] MEDS ORDERED: POTASSIUM CL 10 MEQ TAB PO ONE ×2 (13:30→23:36)
--- NOTE | 2016-09-27 14:32 | PDCARPN ---
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 Moderately reduced left ventricular systolic function. Will add low dose DIONTE-I. Acute Systolic CHF- good response to IV Lasix drip; I & O negative by 4 liters overnight; continues to exhibit significant peripheral edema. Continue intravenous Lasix drip for at least 24 to 48 Hr more. Mitral Regurgitation- moderate to severe by TTE and SULLY. No intrinsic pathology of the mitral valve. This suggests that his MR may be related to his cardiomyopathy/LV dilatation and that it could improve if his LV function recovers with appropriate medical therapy and control of PAFl. Atrial Flutter- status post successful cardioversion 09/25 but reverted to A-fib overnight. Start IV amiodarone. D/C PO calcium channel shelby. Lovenox held secondary to low Plt count. Warfarin started. Thrombocytopenia- Plt up 87K today; 82K on 09/26 and 101K on admission; has been 105K to 116K over the past year. Continue to follow. 09/27/16 14:37 Reviewed/Discussed With: hospitalist Objective: Vital Signs (8 Hrs) Temp Pulse Resp BP Pulse Ox 09/27/16 07:37 36.9 C 107 H 18 115/93 H 95 Intake/Output (24 Hrs) 09/26/16 09/27/16 09/28/16 05:59 05:59 05:59 Intake Total 200 262 Output Total 400 4250 1325 Balance -200 3988 -1325 Intake: Oral (ml) 200 150 IV Infused (ml) 112 Furosemide 100 mg In D5w 112 100 ml @ 10 MG/HR 10 mls/ hr IV CONT MIRTA Rx#: [id number] Output: Urine (ml) 400 4250 1325 Catheter 2250 Urinal 400 2000 1325 Other: Weight 118.3 kg 114.9 kg Number of Voids Urinal 1 Result Diagrams: 09/27/16 10:38 09/27/16 10:38 ICD10 Worksheet Patient Problems: Problems Problem Status Onset Dyspnea Acute Peripheral edema Acute Rapid atrial fibrillation Acute
[2016-09-27] MEDS ORDERED: WARFARIN SODIUM 5 MG TAB PO SCH (16:00)
[2016-09-27] MEDS ORDERED: AMIODARONE HCL 540 MG in D5W 300 ML IV ONE (18:00)
[2016-09-27 18:13] LABS: POTASSIUM 3.7 mEq/L (3.5-5.2)
[2016-09-28 05:05] LABS: HEMATOCRIT 45.2 % (40.0-51.0); HEMOGLOBIN 15.3 g/dL (13.7-17.5); MEAN CELL HEMOGLOBIN 37.1 pg (27.9-34.1); MEAN CELL HEMOGLOBIN CONCENTR. 33.8 g/dL (32.4-36.7); MEAN CELL VOLUME 109.7 fL (81.5-99.8); RED BLOOD CELL COUNT 4.12 10^6/uL (4.40-6.38); RED CELL DISTRIBUTION WIDTH 13.2 % (11.5-15.2)
[2016-09-28 05:15] LABS: INR 1.15 (0.83-1.16); PROTIME(PATIENT) 14.7 SEC (12.0-15.0)
[2016-09-28 05:18] LABS: ANION GAP 11 mEq/L (8-16); CALCIUM 8.5 mg/dL (8.5-10.4); CARBON DIOXIDE 36 mEq/l (22-31); CHLORIDE 91 mEq/L (97-110); CREATININE 0.8 mg/dL (0.7-1.3); GLOMERULAR FILTRATION RATE > 60; GLUCOSE 114 mg/dL (70-100); POTASSIUM 3.4 mEq/L (3.5-5.2); SODIUM 138 mEq/L (134-144)
[2016-09-28] MEDS: BUDESONIDE/FORMOTEROL 160/4.5 60 PUFFS/MDI IH SCH ×2 (09:00→20:47)
[2016-09-28] MEDS: TIOTROPIUM INHALER 18 MCG/DOSE 5 DOSE/MDI IH SCH (09:16)
[2016-09-28] MEDS: POTASSIUM CL 20 MEQ TAB PO SCH (09:23)
[2016-09-28] MEDS: NICOTINE 21 MG/24 HR PATCH TD SCH (09:23)
[2016-09-28] MEDS: LISINOPRIL 2.5 MG TAB PO SCH (09:23)
[2016-09-28] MEDS ORDERED: METOLAZONE 5 MG TAB PO ONE (10:33)
--- NOTE | 2016-09-28 10:46 | PDCARPN ---
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 Moderately reduced left ventricular systolic function. Low dose DIONTE-I added yesterday. Acute Systolic CHF- good response to IV Lasix drip in first 24 Hr with I & O negative by 4 liters; I & O today is negative by only 1.6 liters; continues to exhibit significant peripheral edema. Continue intravenous Lasix drip for at least 24 Hr more. Will give a single PO dose of metolazone today. Mitral Regurgitation- moderate to severe by TTE and SULLY. No intrinsic pathology of the mitral valve. This suggests that his MR may be related to his cardiomyopathy/LV dilatation and that it could improve if his LV function recovers with appropriate medical therapy and control of PAFl. Atrial Flutter- status post successful cardioversion 09/25 but reverted to A-fib 09/26. Finishing IV amiodarone load in less than 2 Hr. Will schedule for cardioversion later today. Declined warfarin due to his h/o Von Willebrand disease (previously unknown to me); has never had a serious hemorrhagic event. Will start Eliquis 5 mg BID with a plan to run it for 30 days post- cardioversion will then defer systemic anticoagulation and reconsider if has problems with recurrent episodes of A-fib. Thrombocytopenia- Plt count 82K; 87K on 09/27, 82K on 09/26, and 101K on admission ; has been 105K to 116K over the past year. Continue to follow. 09/28/16 10:36 Objective: Vital Signs (8 Hrs) Temp Pulse Resp BP Pulse Ox 09/28/16 09:19 88 16 93 09/28/16 08:00 36.6 C 95 15 113/71 93 09/28/16 04:00 36.6 C 86 20 106/81 H 96 Intake/Output (24 Hrs) 09/27/16 09/28/16 09/29/16 05:59 05:59 05:59 Intake Total 262 1050 Output Total 4250 7038 900 Balance -3988 -1625 -900 Intake: Oral (ml) 150 770 IV Infused (ml) 112 280 Amiodarone HCl 540 mg In 180 D5w 300 ml @ 16.667 mls/ hr IV ONCE ONE Rx#: [id number] Furosemide 100 mg In D5w 112 100 100 ml @ 10 MG/HR 10 mls/ hr IV CONT MIRTA Rx#: [id number] Output: Urine (ml) 4250 2675 900 Catheter 2250 Urinal 1999 2675 900 Other: Weight 114.9 kg 113.3 kg Number of Voids Toilet 4 Urinal 1 2 Result Diagrams: 09/28/16 03:35 09/28/16 03:35 - Physical Exam Constitutional: no apparent distress Eyes: anicteric sclera Ears, Nose, Mouth, Throat: moist mucous membranes Cardiovascular: no murmurs, no gallops, irregularly irregular, other (Edema minimally improved.) Respiratory: clear to auscultate bilat Gastrointestinal: normoactive bowel sounds, no tenderness, no masses Skin: no rashes Neurologic: AAOx3 Psychiatric: not anxious ICD10 Worksheet Patient Problems: Problems Problem Status Onset Dyspnea Acute Peripheral edema Acute Rapid atrial fibrillation Acute
[2016-09-28] MEDS ORDERED: POTASSIUM CL 10 MEQ TAB PO ONE ×2 (10:53→21:12)
[2016-09-28] MEDS: FUROSEMIDE 100 MG in D5W 100 ML IV SCH ×2 (10:59→22:55)
[2016-09-28] MEDS: APIXABAN 5 MG TAB PO SCH ×2 (10:59→20:48)
--- NOTE | 2016-09-28 13:21 | CPEKG ---
Heart Rate: 98 RR Interval: 612 QRSD Interval: 154 QT Interval: 404 QTC Interval: 516 QRS [place]: -70 T Wave [place]: -75 EKG Severity - ABNORMAL ECG - EKG Impression: ATRIAL FIBRILLATION-- New since September 26, 2016 EKG Impression: RBBB AND LAFB Electronically Signed By: Baudilio Silveira 28-Sep-2016 17:10:20
[2016-09-28] MEDS ORDERED: PROPOFOL 200 MG/20 ML VIAL ONE (13:30)
--- NOTE | 2016-09-28 13:48 | CPEKG ---
Heart Rate: 91 RR Interval: 659 P-R Interval: 192 QRSD Interval: 156 QT Interval: 428 QTC Interval: 527 P [place]: 2 QRS [place]: -72 T Wave [place]: -57 EKG Severity - ABNORMAL ECG - EKG Impression: ATRIAL PREMATURE COMPLEX EKG Impression: RBBB AND LAFB EKG Impression: Wandering atrial pacemaker EKG Impression: Resolution of atrial fibrillation since September 28, 2016, 13:19 Electronically Signed By: Baudilio Silveira 28-Sep-2016 17:09:28
--- NOTE | 2016-09-28 14:45 | PDTEE1 ---
SULLY Cardioversion Procedure Procedure: Electrical Cardioversion Indications: Atrial Fibrillation Consent: Signed and in Chart Anticoagulation: Eliquis Procedural Details: Pads were placed in anterior-posterior position. Synchronized cardioversion attempt #1: 200J Results: Normal sinus rhythm Conclusions: other (Sinus rhythm initially restored but reverted to atrial fibrillation within 30 minutes.) Patient Problems: Problems Problem Status Onset Chronic Disease Mgmt/Transitional Care Acute Dyspnea Acute Peripheral edema Acute Rapid atrial fibrillation Acute
--- NOTE | 2016-09-28 16:09 | HOSPPROG ---
Hospitalist Progress Note Assessment/Plan: 71 yo M with PMH of copd pw a fib and acute decompensated systolic heart failure # A flutter / RVR - s/ p CV on 09/25 with reversion to a fib. Has been on amio and eliquis and repeat CV planned for today with hopes that with better volume status it may be more successful. # Acute systolic heart failure with - likely precipitated by flutter / rate related cardiomyopathy and VHD. Volume overloaded. Minimal CAD on cath 09/26. Continue lasix gtt for now. Has had significant fluctuation in weight but seems to be diuresing well currently. # Severe MR - moderate to severe, suspect in large part related to volume overload and hoping it will improve with improved volume status. # COPD - right heart strain evident on echo. No symptoms of acute exacerbation. Continue symbicort/spiriva/prn nebs # acute on chronic hypoxemic respiratory failure - 2/2 COPD / HF, only on nocturnal O2 at home. currently on 3L of o2. Continue diuresis, copd mgmt. # Alcohol use - No e/o withdrawal, monitor CIWA # thrombocytopenia: chronic and at baseline, with combined macrocytosis as well likely all related to etoh abuse # Full code # DVT PPLX - eliquis Dispo - cont inpt Patient new to my care. Old records reviewed and summarized as above. Care plan reviewed with cardiology as above. Subjective: no significant overnight events, patient currently feeling better, states he has been urinating a lot, swelling is down Objective: Vital Signs Temp Pulse Resp BP Pulse Ox 36.4 C 101 H 12 120/68 90 L 09/28/16 15:03 09/28/16 15:03 09/28/16 15:03 09/28/16 15:03 09/28/16 15:03 Laboratory Results 09/28/16 03:35 09/28/16 03:35 09/27/16 09/28/16 09/29/16 05:59 05:59 05:59 Intake Total 262 1050 Output Total 4250 8655 1300 Balance -3988 -1625 -1300 PT 14.7 SEC (12.0-15.0) 09/28/16 03:35 INR 1.15 (0.83-1.16) 09/28/16 03:35 awake alert nad anicteric op clear irreg irreg no mrg cta with dec bs at bases obese soft nt 2-3+ pitting edema ble warm dry well perfused oriented appropriate - Time Spent With Patient Time Spent with Patient: greater than 35 minutes Time Spent with Patient: Greater than 35 minutes spent on this patients care, greater than 50% of time spent counseling, educating, and coordinating care regarding the above mentioned plan. ICD10 Worksheet Patient Problems: Problems Problem Status Onset Chronic Disease Mgmt/Transitional Care Acute Rapid atrial fibrillation Acute Dyspnea Acute Peripheral edema Acute
[2016-09-28 20:49] LABS: POTASSIUM 3.7 mEq/L (3.5-5.2)
[2016-09-29 05:00] LABS: POTASSIUM 3.2 mEq/L (3.5-5.2)
[2016-09-29 05:04] LABS: INR 1.36 (0.83-1.16); PROTIME(PATIENT) 16.8 SEC (12.0-15.0)
[2016-09-29] MEDS ORDERED: POTASSIUM CL 10 MEQ TAB PO ONE ×2 (08:18→19:30)
[2016-09-29] MEDS ORDERED: METOLAZONE 2.5 MG TAB PO SCH (09:15)
[2016-09-29] MEDS: TIOTROPIUM INHALER 18 MCG/DOSE 5 DOSE/MDI IH SCH (09:17)
[2016-09-29] MEDS: BUDESONIDE/FORMOTEROL 160/4.5 60 PUFFS/MDI IH SCH ×2 (09:18→20:28)
--- NOTE | 2016-09-29 09:20 | SOAPPROG ---
SOAP Progress Note Assessment/Plan: Assessment: Assessment/Plan: Nonischemic Cardiomyopathy- likely tachycardia mediated related to persistent atrial flutter with rapid ventricular response of unknown duration. Moderately reduced left ventricular systolic function. He is tolerating ACEI well. Acute Systolic CHF- good response to IV Lasix drip over the past 72 hours. He has pedal edema but no pulm edema currently. His bicarb has increased from baseline. Will switch to PO lasix and check S Creatinine. Will give Metolazone at 2.5mg once. Mitral Regurgitation- moderate to severe by TTE and SULLY. No intrinsic pathology of the mitral valve. This suggests that his MR may be related to his cardiomyopathy/LV dilatation and that it could improve if his LV function recovers with appropriate medical therapy and control of PAFl. Atrial Flutter- Failed CV, but now on AMiodarone and his rate is in the 110s. May need flutter ablation once he is euvolemic. Continue PO Amiodarone for now Thrombocytopenia- Plt count 82K; 87K on 09/27, 82K on 09/26, and 101K on admission ; has been 105K to 116K over the past year. Continue to follow. 09/29/16 09:16 Subjective: Pt is feeling better. He is breathing better. Pedal edema continues Objective: Vital Signs Temp Pulse Resp BP Pulse Ox 36.7 C 117 H 16 115/81 H 95 09/29/16 07:12 09/29/16 07:12 09/29/16 07:12 09/29/16 07:12 09/29/16 07:12 Laboratory Results 09/28/16 03:35 09/29/16 03:33 09/28/16 09/29/16 09/30/16 05:59 05:59 05:59 Intake Total 1050 400 Output Total 2675 6080 500 Balance -1625 -5680 -500 PT 16.8 SEC (12.0-15.0) H 09/29/16 03:33 INR 1.36 (0.83-1.16) H 09/29/16 03:33 Physical Exam - Physical Exam General Appearance: alert, no apparent distress EENT: PERRL/EOMI Neck: non-tender, supple, No thyromegaly Respiratory: lungs clear, normal breath sounds, No respiratory distress, No crackles, No rales Cardiac/Chest: edema, tachycardia, irregularly irregular, No gallop, No JVD Abdomen: non-tender, soft, No organomegaly Skin: normal color, warm/dry, No cyanosis ICD10 Worksheet Patient Problems: Problems Problem Status Onset Chronic Disease Mgmt/Transitional Care Acute Dyspnea Acute Peripheral edema Acute Rapid atrial fibrillation Acute
[2016-09-29] MEDS: FUROSEMIDE 100 MG in D5W 100 ML IV SCH (09:45)
[2016-09-29] MEDS: NICOTINE 21 MG/24 HR PATCH TD SCH (10:10)
[2016-09-29] MEDS: LISINOPRIL 2.5 MG TAB PO SCH (10:14)
[2016-09-29] MEDS: APIXABAN 5 MG TAB PO SCH ×2 (10:14→20:35)
[2016-09-29] MEDS: AMIODARONE HCL 200 MG TAB PO SCH (10:19)
[2016-09-29] MEDS: POTASSIUM CL 20 MEQ TAB PO SCH (10:19)
[2016-09-29] MEDS ORDERED: PROTOCOL MAGNESIUM 1 DOSE IV PRN (11:08)
[2016-09-29] MEDS ORDERED: MAGNESIUM SULF 1 GM/DEXTROSE 100 ML IV ONE (12:20)
--- NOTE | 2016-09-29 13:12 | HOSPPROG ---
Hospitalist Progress Note Assessment/Plan: 71 yo M with PMH of copd pw a fib and acute decompensated systolic heart failure # A flutter / RVR - s/ p CV x 2 with reversion to a fib essentially immediately. Has been on amio and eliquis, rates still slightly high in the 110s. May need flutter ablation in the future. Monitoring with volume status improvement # Acute systolic heart failure with - likely precipitated by flutter / rate related cardiomyopathy and VHD. EF of 45%. Remains volume overloaded but improved, transitioned to oral lasix from lasix gtt. Minimal CAD on cath 09/26. # Severe MR - moderate to severe, suspect in large part related to volume overload and hoping it will improve with improved volume status. # COPD - right heart strain evident on echo. No symptoms of acute exacerbation. Continue symbicort/spiriva/prn nebs # acute on chronic hypoxemic respiratory failure - 2/2 COPD / HF, only on nocturnal O2 at home. currently on 3L of o2. Continue diuresis, copd mgmt. Suspect he will need to dc with continuous o2 # Alcohol use - No e/o withdrawal, monitor CIWA # thrombocytopenia: chronic and at baseline, with combined macrocytosis as well likely all related to etoh abuse # Full code # DVT PPLX - eliquis Dispo - cont inpt P Care plan reviewed with cardiology as above. Subjective: no significant overnight events, patient notes his swelling is down , he is not very sob but still requiring 3L of o2 at all times Objective: Vital Signs Temp Pulse Resp BP Pulse Ox 36.6 C 119 H 19 110/59 L 95 09/29/16 10:50 09/29/16 10:50 09/29/16 10:50 09/29/16 10:50 09/29/16 10:50 Laboratory Results 09/28/16 03:35 09/29/16 03:33 09/28/16 09/29/16 09/30/16 05:59 05:59 05:59 Intake Total 1050 400 808 Output Total 2675 6080 1100 Balance -1625 -5680 -292 PT 16.8 SEC (12.0-15.0) H 09/29/16 03:33 INR 1.36 (0.83-1.16) H 09/29/16 03:33 awake alert nad anicteric op clear irreg irreg no mrg cta with dec bs at bases obese soft nt 2-3+ pitting edema ble warm dry well perfused oriented appropriate ICD10 Worksheet Patient Problems: Problems Problem Status Onset Chronic Disease Mgmt/Transitional Care Acute Dyspnea Acute Peripheral edema Acute Rapid atrial fibrillation Acute
[2016-09-29] MEDS ORDERED: FUROSEMIDE 80 MG TAB PO SCH (14:00)
[2016-09-29] MEDS ORDERED: MAGNESIUM HYDROXIDE 30 ML UDCUP PO PRN (17:02)
[2016-09-29] MEDS ORDERED: LACTULOSE 20 GM/30 ML UDCUP PO PRN (17:02)
[2016-09-29] MEDS ORDERED: POLYETHYLENE GLYCOL 3350 17 GM PKT PO PRN (17:02)
[2016-09-29] MEDS ORDERED: BISACODYL 10 MG SUPP PR PRN (17:02)
[2016-09-29 18:30] LABS: POTASSIUM 3.6 mEq/L (3.5-5.2)
[2016-09-29] MEDS: FUROSEMIDE 80 MG TAB PO SCH (19:02)
[2016-09-29] MEDS: SENNOSIDES/DOCUSATE SODIUM TAB PO SCH (20:35)
[2016-09-30 04:46] LABS: HEMATOCRIT 51.8 % (40.0-51.0); MEAN CELL HEMOGLOBIN 36.3 pg (27.9-34.1); MEAN CELL HEMOGLOBIN CONCENTR. 34.7 g/dL (32.4-36.7); MEAN CELL VOLUME 104.4 fL (81.5-99.8); RED BLOOD CELL COUNT 4.96 10^6/uL (4.40-6.38); RED CELL DISTRIBUTION WIDTH 12.6 % (11.5-15.2)
[2016-09-30 04:56] LABS: INR 1.32 (0.83-1.16); PROTIME(PATIENT) 16.4 SEC (12.0-15.0)
[2016-09-30 05:00] LABS: CALCIUM 9.7 mg/dL (8.5-10.4); CHLORIDE 84 mEq/L (97-110); CREATININE 0.9 mg/dL (0.7-1.3); GLOMERULAR FILTRATION RATE > 60; GLUCOSE 116 mg/dL (70-100); MAGNESIUM 1.8 mg/dL (1.6-2.3); POTASSIUM 3.5 mEq/L (3.5-5.2); SODIUM 134 mEq/L (134-144)
[2016-09-30 05:06] LABS: ANION GAP 12 mEq/L (8-16); CARBON DIOXIDE 38 mEq/l (22-31)
[2016-09-30] MEDS: FUROSEMIDE 80 MG TAB PO SCH (06:20)
[2016-09-30] MEDS ORDERED: POTASSIUM CL 10 MEQ TAB PO ONE ×2 (08:24→19:21)
[2016-09-30] MEDS ORDERED: MAGNESIUM SULF 1 GM/DEXTROSE 100 ML IV ONE (08:25)
--- NOTE | 2016-09-30 08:33 | SOAPPROG ---
SOAP Progress Note Assessment/Plan: Assessment: Assessment/Plan: Nonischemic Cardiomyopathy- likely tachycardia mediated related to persistent atrial flutter with rapid ventricular response of unknown duration. Moderately reduced left ventricular systolic function. He is tolerating ACEI well. Acute Systolic CHF- good response to IV Lasix drip and also to the PO lasix and Metolazone. Today's lab work indicative of intravascular depletion. Will hold Lasix today and then start with lower dose of lasix tomorrow. Mitral Regurgitation- moderate to severe by TTE and SULLY. No intrinsic pathology of the mitral valve. This suggests that his MR may be related to his cardiomyopathy/LV dilatation and that it could improve if his LV function recovers with appropriate medical therapy and control of PAFl. Atrial Flutter- Failed CV, but now on AMiodarone. Poor rate control, however, this may be partly contributed to by dehydration/ intravascular depletion. May need flutter ablation once he is euvolemic. Continue PO Amiodarone for now 09/30/16 08:28 Subjective: Pt is feeling better. He notices that his legs are thinner Objective: Vital Signs Temp Pulse Resp BP Pulse Ox 36.5 C 118 H 18 88/64 L 94 09/30/16 07:49 09/30/16 07:49 09/30/16 07:49 09/30/16 07:49 09/30/16 07:49 Laboratory Results 09/30/16 03:41 09/30/16 03:41 09/29/16 09/30/16 10/01/16 05:59 05:59 05:59 Intake Total 400 1916 Output Total 6080 5000 Balance -5680 -7534 PT 16.4 SEC (12.0-15.0) H 09/30/16 03:41 INR 1.32 (0.83-1.16) H 09/30/16 03:41 Physical Exam - Physical Exam General Appearance: alert, no apparent distress EENT: PERRL/EOMI, pharynx normal Neck: non-tender, full range of motion Respiratory: lungs clear, normal breath sounds, No respiratory distress, No crackles, No rales Cardiac/Chest: edema, tachycardia, irregularly irregular Abdomen: normal bowel sounds, non-tender, soft Skin: normal color, warm/dry ICD10 Worksheet Patient Problems: Problems Problem Status Onset Chronic Disease Mgmt/Transitional Care Acute Dyspnea Acute Peripheral edema Acute Rapid atrial fibrillation Acute
[2016-09-30] MEDS: APIXABAN 5 MG TAB PO SCH ×2 (08:37→20:19)
[2016-09-30] MEDS: LISINOPRIL 2.5 MG TAB PO SCH (08:37)
[2016-09-30] MEDS: AMIODARONE HCL 200 MG TAB PO SCH (08:37)
[2016-09-30] MEDS: POTASSIUM CL 20 MEQ TAB PO SCH (08:37)
[2016-09-30] MEDS: TIOTROPIUM INHALER 18 MCG/DOSE 5 DOSE/MDI IH SCH (08:40)
[2016-09-30] MEDS: BUDESONIDE/FORMOTEROL 160/4.5 60 PUFFS/MDI IH SCH ×2 (08:40→20:02)
[2016-09-30] MEDS: NICOTINE 21 MG/24 HR PATCH TD SCH (10:15)
[2016-09-30] MEDS: SENNOSIDES/DOCUSATE SODIUM TAB PO SCH ×2 (10:59→20:21)
--- NOTE | 2016-09-30 13:12 | HOSPPROG ---
Hospitalist Progress Note Assessment/Plan: 71 yo M with PMH of copd pw a fib and acute decompensated systolic heart failure # A flutter / RVR - s/ p CV x 2 with reversion to a fib essentially immediately. Has been on amio and eliquis, rates still intermittently high in the 110s. May need flutter ablation in the future. Monitoring with volume status improvement # Acute systolic heart failure with - likely precipitated by flutter / rate related cardiomyopathy of unknown duration. EF of 45%. Remains volume overloaded but improving, slightly over diuresed as next. Minimal CAD on cath . # pre renal azotemia/metabolic alkalosis: with associated increase in h/h all presumably related to volume depletion 2/2 diuresis. Weight is down 14kg. Holding lasix today and will resume oral tomorrow at lower dose, continue to hold metolazone. # Severe MR - moderate to severe, suspect in large part related to volume overload and hoping it will improve with improved volume status. # COPD - right heart strain evident on echo. No symptoms of acute exacerbation. Continue symbicort/spiriva/prn nebs # acute on chronic hypoxemic respiratory failure - 2/2 COPD / HF, only on nocturnal O2 at home. currently on 2L of o2. Continue diuresis, copd mgmt. Suspect he will need to dc with continuous o2 though given continued improvement with diuresis possibly not # Alcohol use - No e/o withdrawal # thrombocytopenia: chronic and at baseline, with combined macrocytosis as well likely all related to etoh abuse # constipation: continue bowel protocol # Full code # DVT PPLX - eliquis Dispo - cont inpt Care plan reviewed with cardiology, further hx obtained from patients present at bedside. Subjective: no significant overnight events, patient currently feeling fatigued but otherwise no new complaints, not particulalry sob, no chest pain, swelling continues to improve Objective: Vital Signs Temp Pulse Resp BP Pulse Ox 36.5 C 111 H 12 91/57 L 95 09/30/16 12:00 09/30/16 12:00 09/30/16 12:00 09/30/16 12:00 09/30/16 12:00 Laboratory Results 09/30/16 03:41 09/30/16 03:41 07/15/17 07/16/17 07/17/17 05:59 05:59 05:59 Intake Total 400 1916 430 Output Total 6080 5000 Balance -1863 -9025 430 PT 16.4 SEC (12.0-15.0) H 09/30/16 03:41 INR 1.32 (0.83-1.16) H 09/30/16 03:41 awake alert nad anicteric op clear irreg irreg no mrg cta with dec bs at bases obese soft nt 2+ pitting edema ble warm dry well perfused oriented appropriate - Time Spent With Patient Time Spent with Patient: greater than 35 minutes Time Spent with Patient: Greater than 35 minutes spent on this patients care, greater than 50% of time spent counseling, educating, and coordinating care regarding the above mentioned plan. ICD10 Worksheet Patient Problems: Problems Problem Status Onset Chronic Disease Mgmt/Transitional Care Acute Dyspnea Acute Peripheral edema Acute Rapid atrial fibrillation Acute
[2016-09-30 18:21] LABS: POTASSIUM 3.4 mEq/L (3.5-5.2)
[2016-10-01 03:47] LABS: HEMATOCRIT 48.3 % (40.0-51.0); HEMOGLOBIN 17.6 g/dL (13.7-17.5); MEAN CELL HEMOGLOBIN 38.3 pg (27.9-34.1); MEAN CELL HEMOGLOBIN CONCENTR. 36.4 g/dL (32.4-36.7); MEAN CELL VOLUME 105.2 fL (81.5-99.8); RED BLOOD CELL COUNT 4.59 10^6/uL (4.40-6.38); RED CELL DISTRIBUTION WIDTH 12.7 % (11.5-15.2)
[2016-10-01 03:50] LABS: ANION GAP 11 mEq/L (8-16); CALCIUM 9.2 mg/dL (8.5-10.4); CARBON DIOXIDE 37 mEq/l (22-31); CHLORIDE 87 mEq/L (97-110); CREATININE 0.8 mg/dL (0.7-1.3); GLOMERULAR FILTRATION RATE > 60; GLUCOSE 115 mg/dL (70-100); POTASSIUM 3.5 mEq/L (3.5-5.2); SODIUM 135 mEq/L (134-144)
[2016-10-01 03:56] LABS: INR 1.47 (0.83-1.16); PROTIME(PATIENT) 17.8 SEC (12.0-15.0)
[2016-10-01] MEDS: BUDESONIDE/FORMOTEROL 160/4.5 60 PUFFS/MDI IH SCH ×2 (08:40→20:09)
[2016-10-01] MEDS: LISINOPRIL 2.5 MG TAB PO SCH (09:14)
[2016-10-01] MEDS: POTASSIUM CL 20 MEQ TAB PO SCH (09:14)
[2016-10-01] MEDS: FUROSEMIDE 40 MG TAB PO SCH ×2 (09:14→16:01)
[2016-10-01] MEDS: AMIODARONE HCL 200 MG TAB PO SCH ×2 (09:14→20:09)
[2016-10-01] MEDS: APIXABAN 5 MG TAB PO SCH ×2 (09:14→20:09)
[2016-10-01] MEDS: SENNOSIDES/DOCUSATE SODIUM TAB PO SCH ×2 (09:15→20:10)
[2016-10-01] MEDS: NICOTINE 21 MG/24 HR PATCH TD SCH (09:15)
[2016-10-01] MEDS: TIOTROPIUM INHALER 18 MCG/DOSE 5 DOSE/MDI IH SCH (10:43)
--- NOTE | 2016-10-01 12:13 | SOAPPROG ---
[facility] Progress Note Assessment/Plan: Assessment: 71-year-old male admitted with decompensated right greater than left-sided congestive heart failure. Found to be in atrial flutter. Newly diagnosed moderate nonischemic cardiomyopathy associated with moderate to severe mitral insufficiency thought to be functional in nature. 2 prior attempts at cardioversion were unsuccessful at maintaining sinus rhythm despite the fact that sinus rhythm was affectively restored. He is currently on amiodarone therapy which he has been taking now for the last several days. On his previous diuretic regimen he did become slightly pre renal. Plan: 1. Presently, I think he is close to being able to be discharged. 2. I did increase his amiodarone to twice daily dosing. 3. I have added Toprol-XL 12.5 mg daily. 3. I have added spironolactone 25 mg daily. 4. Will plan to check his room air oxygenation. Depending on his the need for oxygen therapy may be able to be discharged home with close outpatient follow- up and consideration of a repeat cardioversion here within the next 1-2 weeks. 5. Once sinus rhythm has been restored and he has been observed for several weeks on medical therapy his mitral insufficiency should be reassessed. 6. We will follow along with you. 10/01/16 12:10 Subjective: The patient was seen and examined. His chart was reviewed. He states he feels much better currently than he did at the time of admission. Lower extremity edema has improved although has not completely resolved. He denies chest discomfort and chest pain. He is still on oxygen therapy. Objective: Vital Signs Temp Pulse Resp BP Pulse Ox 36.9 C 108 H 20 101/62 93 10/01/16 12:00 10/01/16 12:00 10/01/16 12:00 10/01/16 12:00 10/01/16 12:00 Laboratory Results 10/01/16 03:26 10/01/16 03:26 09/30/16 10/01/16 10/02/16 05:59 05:59 05:59 Intake Total 1916 1130 370 Output Total 4455 1875 Balance -4324 -546 370 PT 17.8 SEC (12.0-15.0) H 10/01/16 04:30 INR 1.47 (0.83-1.16) H 10/01/16 04:30 Physical Exam - Physical Exam General Appearance: WD/WN, no apparent distress Neck: non-tender, full range of motion Respiratory: chest non-tender, decreased breath sounds, No crackles, No rales, No rhonchi Cardiac/Chest: normal peripheral pulses, edema (1/2 inch pitting edema confined to the foot and ankle bilateral), irregularly irregular, No gallop, No JVD Peripheral Pulses: 2+: carotid (R), carotid (L) Abdomen: non-tender, soft Male Genitalia: deferred Rectal: deferred Neuro/Psych: alert, oriented x 3 ICD10 Worksheet Patient Problems: Problems Problem Status Onset Chronic Disease Mgmt/Transitional Care Acute Dyspnea Acute Peripheral edema Acute Rapid atrial fibrillation Acute
--- NOTE | 2016-10-01 12:38 | HOSPPROG ---
Hospitalist Progress Note Assessment/Plan: 71 yo M with PMH of copd pw a fib and acute decompensated systolic heart failure # A flutter / RVR - s/ p CV x 2 with reversion to a fib essentially immediately. Has been on amio and eliquis, rates still intermittently high in the 110s. Amiodarone increased and added metoprolol today per cardiology. If rate better controlled and BP tolerates, could likely dc on current meds for op f/u. # Acute systolic heart failure with - likely precipitated by flutter / rate related cardiomyopathy of unknown duration. EF of 45%. Remains volume overloaded but improving, slightly over diuresed in past couple of days and started back on bid lasix for now. Goal 1-2L negative/day. # pre renal azotemia/metabolic alkalosis: with associated increase in h/h all presumably related to volume depletion 2/2 diuresis. Weight is down 15kg. Stable overnight, continue to monitor. # Severe MR - moderate to severe, suspect in large part related to volume overload and hoping it will improve with improved volume status. # COPD - right heart strain evident on echo. No symptoms of acute exacerbation. Continue symbicort/spiriva/prn nebs # acute on chronic hypoxemic respiratory failure - 2/2 COPD / HF, only on nocturnal O2 at home. currently on 2-3L of o2. Continue diuresis, copd mgmt. Suspect he will need to dc with continuous o2 though given continued improvement with diuresis possibly not # Alcohol use - No e/o withdrawal # thrombocytopenia: chronic and at baseline, with combined macrocytosis as well likely all related to etoh abuse # constipation: continue bowel protocol # Full code # DVT PPLX - eliquis Dispo - cont inpt Care plan reviewed with patients present at bedside. Subjective: no significant overnight events, patient feeling a bit better today , more alert Objective: Vital Signs Temp Pulse Resp BP Pulse Ox 36.9 C 108 H 20 101/62 93 10/01/16 12:00 10/01/16 12:00 10/01/16 12:00 10/01/16 12:00 10/01/16 12:00 Laboratory Results 10/01/16 03:26 10/01/16 03:26 09/30/16 10/01/16 10/02/16 05:59 05:59 05:59 Intake Total 8766 1130 370 Output Total 4152 3656 Balance -8440 -607 370 PT 17.8 SEC (12.0-15.0) H 10/01/16 04:30 INR 1.47 (0.83-1.16) H 10/01/16 04:30 awake alert nad anicteric op clear irreg irreg no mrg cta with dec bs at bases obese soft nt 2+ pitting edema ble warm dry well perfused oriented appropriate ICD10 Worksheet Patient Problems: Problems Problem Status Onset Chronic Disease Mgmt/Transitional Care Acute Dyspnea Acute Peripheral edema Acute Rapid atrial fibrillation Acute
[2016-10-01] MEDS: SPIRONOLACTONE 25 MG TAB PO SCH (16:01)
[2016-10-01 17:47] LABS: POTASSIUM 3.7 mEq/L (3.5-5.2)
[2016-10-01] MEDS: METOPROLOL SUCCINATE XR 25 MG TAB PO SCH ×2 (18:28→18:35)
[2016-10-01] MEDS ORDERED: POTASSIUM CL 10 MEQ TAB PO ONE (19:22)
[2016-10-02 04:19] LABS: HEMATOCRIT 49.4 % (40.0-51.0); MEAN CELL HEMOGLOBIN CONCENTR. 34.4 g/dL (32.4-36.7); MEAN CELL VOLUME 104.7 fL (81.5-99.8); RED BLOOD CELL COUNT 4.72 10^6/uL (4.40-6.38); RED CELL DISTRIBUTION WIDTH 12.5 % (11.5-15.2)
[2016-10-02 04:40] LABS: ANION GAP 11 mEq/L (8-16); CALCIUM 9.3 mg/dL (8.5-10.4); CARBON DIOXIDE 36 mEq/l (22-31); CHLORIDE 88 mEq/L (97-110); CREATININE 0.8 mg/dL (0.7-1.3); GLOMERULAR FILTRATION RATE > 60; GLUCOSE 110 mg/dL (70-100); MAGNESIUM 1.9 mg/dL (1.6-2.3); POTASSIUM 3.6 mEq/L (3.5-5.2); SODIUM 135 mEq/L (134-144)
[2016-10-02] MEDS: POTASSIUM CL 20 MEQ TAB PO SCH (08:32)
[2016-10-02] MEDS: NICOTINE 21 MG/24 HR PATCH TD SCH (08:32)
[2016-10-02] MEDS: AMIODARONE HCL 200 MG TAB PO SCH (08:33)
[2016-10-02] MEDS: SENNOSIDES/DOCUSATE SODIUM TAB PO SCH (08:33)
[2016-10-02] MEDS: METOPROLOL SUCCINATE XR 25 MG TAB PO SCH (08:34)
[2016-10-02] MEDS: SPIRONOLACTONE 25 MG TAB PO SCH (08:34)
[2016-10-02] MEDS: APIXABAN 5 MG TAB PO SCH (08:34)
[2016-10-02] MEDS: FUROSEMIDE 40 MG TAB PO SCH (08:34)
[2016-10-02] MEDS: LISINOPRIL 2.5 MG TAB PO SCH (09:00)
--- NOTE | 2016-10-02 10:13 | PDDCSUM ---
Discharge Summary Discharge Summary: Dates of service 09/24-10/02/16 Discharge dx: # a fib/flutter w/rvr # acute systolic heart failure # severe MR # pre renal azotemia # metabolic alkalosis # chronic copd # acute on chronic hypoxic respiratory failure # chronic thrombocytopenia # etoh use/abuse Consultations: cardiology Procedures performed: SULLY/CV x 2, echo Hospital course by problem: # A flutter / RVR - s/ p CV x 2 that both failed, rate control improved on amio/ metoprolol and will f/u with cardiology in coming weeks to determine if another CV will be needed. # Acute systolic heart failure with - likely precipitated by flutter / rate related cardiomyopathy of unknown duration. EF of 45%. Significantly improved volume status post diuresis. Dc on bid lasix and f/u with cardiology as above. # pre renal azotemia/metabolic alkalosis: 2/2 aggressive diuresis, BUN and bicarb coming down after backing off, creatinine remained stable # Severe MR - moderate to severe, suspect in large part related to volume overload and hoping it will improve with improved volume status. # COPD - right heart strain evident on echo. No symptoms of acute exacerbation. Continue symbicort/spiriva. Has been smoking up until admission and recommending cessation # acute on chronic hypoxemic respiratory failure - 2/2 COPD / HF, only on nocturnal O2 at home. continues to require supplemental o2 during the day and will dc home with that # Alcohol use - No e/o withdrawal # tobacco use: recommend cessation # thrombocytopenia: chronic and at baseline, with combined macrocytosis as well likely all related to etoh abuse # constipation: continue bowel protocol # Full code # DVT PPLX - eliquis dc home f/u with PCP/cardiology > 35 min spent in dc of patient more than half in coordination of care
[2016-10-02] MEDS: BUDESONIDE/FORMOTEROL 160/4.5 60 PUFFS/MDI IH SCH (11:29)
[2016-10-02] MEDS: TIOTROPIUM INHALER 18 MCG/DOSE 5 DOSE/MDI IH SCH ×2 (11:30→12:33)
[2016-10-02 12:48] VITALS: PULSE 99; RESP 12; O2SAT 96
[2016-10-02 12:56] VITALS: BP 90/72; TEMP 98.9
--- NOTE | 2016-10-02 15:13 | SOAPPROG ---
[facility] Progress Note Assessment/Plan: Assessment: 71-year-old male admitted with decompensated right greater than left-sided congestive heart failure. Found to be in atrial flutter. Newly diagnosed moderate nonischemic cardiomyopathy associated with moderate to severe mitral insufficiency thought to be functional in nature. 2 prior attempts at cardioversion were unsuccessful at maintaining sinus rhythm despite the fact that sinus rhythm was affectively restored. He is currently on amiodarone therapy which he has been taking now for the last several days. On his previous diuretic regimen he did become slightly pre renal. On his oral diuretics he appears to be doing well. He has significantly improved lower extremity edema and heart rate control. Plan: 1. Presently, I think that he can be discharged home. 2. I did discontinue his lisinopril. 3. Would like him to follow up with Dr. Hsu next week. We have provided him with an appointment . 4. Here in the near future, I think he would benefit from another attempt at cardioversion. 5. After several months of optimal medical therapy and maintenance of sinus rhythm we can reassess his mitral insufficiency and at that time, consider surgical options if he meets criteria. 10/02/16 15:11 Subjective: He states that he has been feeling better today. His edema has improved significantly from yesterday. Apparently, last night, experienced transient hypotension with systolic pressures down into the 70s. This came on the heels of starting beta-shelby therapy. He was asymptomatic at that time. He remains in atrial flutter. Heart rates are better controlled. Objective: Vital Signs Temp Pulse Resp BP Pulse Ox 37.2 C 99 12 90/72 L 96 10/02/16 12:00 10/02/16 12:00 10/02/16 12:00 10/02/16 12:00 10/02/16 12:00 Laboratory Results 10/02/16 03:20 10/02/16 03:20 10/01/16 10/02/16 10/03/16 05:59 05:59 05:59 Intake Total 1130 1320 Output Total 1875 3075 Balance -745 -1755 PT 17.8 SEC (12.0-15.0) H 10/01/16 04:30 INR 1.47 (0.83-1.16) H 10/01/16 04:30 Physical Exam - Physical Exam General Appearance: WD/WN, no apparent distress Neck: non-tender Respiratory: lungs clear, No crackles, No rales, No rhonchi Cardiac/Chest: edema ( Trace), irregularly irregular Peripheral Pulses: 2+: carotid (R), carotid (L) Abdomen: non-tender, soft Male Genitalia: deferred Rectal: deferred Neuro/Psych: alert, oriented x 3 ICD10 Worksheet Patient Problems: Problems Problem Status Onset Chronic Disease Mgmt/Transitional Care Acute Dyspnea Acute Peripheral edema Acute Rapid atrial fibrillation Acute
== END 2016-10-02 15:28 | disposition home or self-care (01) | DRG 286 ==
LOC: INTOOBSV 11:30 → F2W 13:00 → OBSVTOIN 09-25 13:43
PROVIDERS: ADMIT Student in an Organized Health Care Education/Training Program; ATTEND Student in an Organized Health Care Education/Training Program
PROC: 5A2204Z Restoration of Cardiac Rhythm, Single (ICD-10-PCS; principal; 2016-09-25)
PROC: 4A023N8 Measurement of Cardiac Sampling and Pressure, Bilateral, Percutaneous Approach (ICD-10-PCS; 2016-09-26)
PROC: B2111ZZ Fluoroscopy of Multiple Coronary Arteries using Low Osmolar Contrast (ICD-10-PCS; 2016-09-26)
PROC: B2151ZZ Fluoroscopy of Left Heart using Low Osmolar Contrast (ICD-10-PCS; 2016-09-26)
PROC: 5A2204Z Restoration of Cardiac Rhythm, Single (ICD-10-PCS; 2016-09-28)
DX: I48.92 Unspecified atrial flutter (principal); I11.0 Hypertensive heart disease with heart failure; I50.21 Acute systolic (congestive) heart failure; J96.21 Acute and chronic respiratory failure with hypoxia; E87.3 Alkalosis; J44.9 Chronic obstructive pulmonary disease, unspecified; N19 Unspecified kidney failure; D69.6 Thrombocytopenia, unspecified; F10.10 Alcohol abuse, uncomplicated; K59.00 Constipation, unspecified; Z72.0 Tobacco use
CPT/HCPCS: 85520-90; 96365; 96366; G0378; J0153; J0282; J0461; J1644; J1650; J1940; J2060; J2250; J2704; J3010; J3475; Q9967

== ENCOUNTER 2016-10-18 06:57 | Observation (INO) | payer OTHER ==
[2016-10-18] MEDS ORDERED: MIDAZOLAM 2 MG/2 ML VIAL IVP ONE (07:01)
[2016-10-18] MEDS ORDERED: NS 1,000 ML IV ONE (07:01)
--- NOTE | 2016-10-18 07:16 | CPEKG ---
Heart Rate: 131 RR Interval: 458 QRSD Interval: 162 QT Interval: 380 QTC Interval: 562 QRS [place]: -15 T Wave [place]: 34 EKG Severity - ABNORMAL ECG - EKG Impression: WIDE COMPLEX TACHYCARDIA EKG Impression: RIGHT BUNDLE BRANCH BLOCK EKG Impression: SUSPECT A-FLUTTER WITH 2:1 BLOCK Electronically Signed By: Ramses Lion 18-Oct-2016 17:30:07
[2016-10-18 07:36] LABS: % IMMATURE GRANULYOCYTES 0.7 % (0.0-1.1); ABSOLUTE IMMATURE GRANULOCYTES 0.05 10^3/uL (0.00-0.10); ADD DIFF? NO; ADD MORPH? NO; ADD SCAN? NO; ATYPICAL LYMPHOCYTE FLAG 10 (0-99); FRAGMENT RBC FLAG 0 (0-99); HEMATOCRIT 50.5 % (40.0-51.0); HEMOGLOBIN 17.5 g/dL (13.7-17.5); LEFT SHIFT FLG 0 (0-99); LIPEMIA HEMOLYSIS FLAG 90 (0-99); MEAN CELL HEMOGLOBIN 35.6 pg (27.9-34.1); MEAN CELL HEMOGLOBIN CONCENTR. 34.7 g/dL (32.4-36.7); MEAN CELL VOLUME 102.9 fL (81.5-99.8); MEAN PLATELET VOLUME 10.9 fL (8.7-11.7); PLATELET CLUMPS FLAG 0 (0-99); PLATELET COUNT 100 10^3/uL (150-400); RED BLOOD CELL COUNT 4.91 10^6/uL (4.40-6.38)
[2016-10-18 07:49] LABS: INR 1.15 (0.83-1.16); PROTIME(PATIENT) 14.7 SEC (12.0-15.0)
[2016-10-18 07:50] LABS: APTT 28.6 SEC (23.0-38.0)
[2016-10-18] MEDS ORDERED: HEPARIN 10,000 UNIT/10 ML MDV ONE (07:51)
[2016-10-18] MEDS ORDERED: BUPIVACAINE 0.5% 30 ML SDV ONE (07:51)
[2016-10-18] MEDS ORDERED: LIDOCAINE 1% 300 MG/30 ML SDV ONE (07:51)
[2016-10-18] MEDS ORDERED: ISOPROTERENOL HCL/D5W 0.2 MG/50 ML BAG IV ONE (07:51)
[2016-10-18 07:55] LABS: ANION GAP 11 mEq/L (8-16); CALCIUM 9.2 mg/dL (8.5-10.4); CARBON DIOXIDE 29 mEq/l (22-31); CHLORIDE 96 mEq/L (97-110); GLOMERULAR FILTRATION RATE > 60; GLUCOSE 138 mg/dL (70-100); POTASSIUM 4.6 mEq/L (3.5-5.2); SODIUM 136 mEq/L (134-144)
[2016-10-18] MEDS ORDERED: ROCURONIUM 100 MG/10 ML VIAL ONE (08:28)
[2016-10-18] MEDS ORDERED: ONDANSETRON 4 MG/2 ML VIAL ONE (08:29)
[2016-10-18] MEDS ORDERED: DEXAMETHASONE 4 MG/ML VIAL ONE (08:29)
[2016-10-18] MEDS ORDERED: fentaNYL 100 MCG/2 ML INJ ONE (08:31)
[2016-10-18] MEDS ORDERED: PROPOFOL 200 MG/20 ML VIAL ONE (08:31)
[2016-10-18] MEDS ORDERED: PHENYLEPHRINE 10 MG/ML SDV ONE (08:37)
[2016-10-18] MEDS ORDERED: SUCCINYLCHOLINE CHLORIDE*ANESTHESIA ONLY*200 MG/10 ML SYR IVP ONE (09:30)
[2016-10-18] MEDS ORDERED: SUGAMMADEX SODIUM 200 MG/2 ML VIAL IVP ONE (11:18)
[2016-10-18] MEDS ORDERED: ONDANSETRON 4 MG/2 ML VIAL IVP PRN (11:22)
[2016-10-18] MEDS ORDERED: ACETAMINOPHEN 325 MG TAB PO PRN (11:22)
[2016-10-18] MEDS ORDERED: FUROSEMIDE 20 MG/2 ML VIAL ONE (11:56)
--- NOTE | 2016-10-18 13:00 | CPEKG ---
Heart Rate: 70 RR Interval: 857 P-R Interval: 212 QRSD Interval: 154 QT Interval: 436 QTC Interval: 471 P [place]: 50 QRS [place]: -70 T Wave [place]: -42 EKG Severity - ABNORMAL ECG - EKG Impression: SINUS RHYTHM EKG Impression: RIGHT BUNDLE BRANCH BLOCK EKG Impression: LEFT ANTERIOR FASCICULAR BLOCK Electronically Signed By: Ramses Lion 18-Oct-2016 17:27:00
[2016-10-18] MEDS ORDERED: LORazepam 2 MG/ML INJ IVP ONE (13:15)
[2016-10-18 13:44] LABS: ANION GAP 11 mEq/L (8-16); CALCIUM 8.8 mg/dL (8.5-10.4); CARBON DIOXIDE 26 mEq/l (22-31); CHLORIDE 99 mEq/L (97-110); CREATININE 1.2 mg/dL (0.7-1.3); GLOMERULAR FILTRATION RATE 60; GLUCOSE 179 mg/dL (70-100); POTASSIUM 5.4 mEq/L (3.5-5.2); SODIUM 136 mEq/L (134-144); SPECIMEN HEMOLYSIS 130
[2016-10-18] MEDS ORDERED: FUROSEMIDE 40 MG TAB PO SCH (14:00)
--- NOTE | 2016-10-18 14:31 | GHP ---
[f rep st] HISTORY AND PHYSICAL DATE OF ADMISSION: 10/18/2016 HISTORY OF PRESENT ILLNESS: The patient is a pleasant 71-year-old gentleman with a history of sejal soliz diagnosed atrial fibrillation, COPD, and systolic heart failure who is undergoing an outpatient EP procedure today. He was intubated for the procedure, extubated subsequently a stat te am call for respiratory distress. When I arrived there, he was sitting upright with orthopnea. He was in respiratory distress with elevated neck veins. He received BiPAP and ABG showing mild respir atory acidosis, a chest x-ray showing pulmonary edema (interpreted by me), and he received some Lasi x with good urine output. He also received Ativan. When I speak with the patient now, he says he felt well when he woke up this morning. He has been t aking diuretics at 8 a.m. and 2 p.m. He is experiencing some nocturia as well as nocturnal urgency. He does not have a history of enlarged prostate. He has not had fever or chills. The patient states he does feel like his breathing is improved since his stat team call. REVIEW OF SYSTEMS: Complete 10-point review of systems conducted and negative except as noted in th e HPI. PAST MEDICAL HISTORY: 1. COPD. 2. Chronic respiratory failure. He is on oxygen. 3. AAA, status post stenting. 4. Remote foot surgery. 5. Atrial fibrillation. 6. Systolic heart failure with an EF of 45%. 7. Moderate right heart failure. ALLERGIES: Cats. MEDICATIONS: Amiodarone, apixaban, budesonide, formoterol, Lasix, metoprolol, potassium chloride, s pironolactone. SOCIAL HISTORY: Just quit smoking. Just quit drinking. 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 FAMILY HISTORY: Parents . PHYSICAL EXAMINATION: VITAL SIGNS: Afebrile, blood pressure 114/70, pulse 85, and 99% on BiPAP wit h 50% FiO2. GENERAL: No acute distress, increased work of breathing. HEENT: Sclerae anicteric. Mucous membranes dry. NECK: Supple. There are elevated neck veins. LUNGS: Clear to auscultation anterolaterally. HEART: S1, S2 without significant murmurs. ABDOMEN: Soft, nontender, nondisten ded. LOWER EXTREMITIES: No edema bilaterally. Calves are nontender. SKIN: Without rash. NEUROL OGIC: Nonfocal. LABORATORIES: White count 7, hematocrit 50, platelets are 100,000. MCV is elevated at 102.9. He h as an INR of 1.15. ABG shows a pH of 7.34 with pCO2 of 56 and a serum bicarb of 30. The pO2 is pen ding. Sodium 136, potassium 4.6, chloride 96, bicarb 29, BUN 24, creatinine 1.0, glucose 138. Chest x-ray, interpreted by me, shows pulmonary edema. The radiologist felt there was not pulmonary edema. EKG interpreted by me shows sinus 70 with right bundle branch block pattern which is not new. I dis cussed the case with Dr. Ernesto Hsu. ASSESSMENT AND PLAN: 71-year-old gentleman with respiratory distress and hypoxemic respiratory fail ure following EP procedure. 1. Respiratory distress. I suspect that this is pulmonary edema in the setting of mitral regurgita tion with some IV fluid administered. He received Lasix and BiPAP with improvement in his symptoms. His ABG shows evidence of CO2 retention with a relatively normal pH consistent with chronic obstru ctive pulmonary disease. Will continue BiPAP and Lasix. Will attempt to discontinue his BiPAP in a bit of time. 2. Mitral regurgitation. Patient is supported with IV fluids. 3. Atrial fibrillation, status post cardioversion. 4. Right heart failure. This is secondary to chronic obstructive pulmonary disease. He is current ly diuresed with no edema. 5. Tobacco use. The patient has apparently quit. 6. Macrocytosis of uncertain etiology. Will follow. DISPOSITION: Inpatient status, ICU, full code. /[id number]/MODL
[2016-10-18 15:57] LABS: BASE EXCESS 4.1 mEq/L (-2.5-2.5); BICARBONATE 29 mEq/L (22-26); MEASURED OXYGEN SATURATION 95 % (92-95); PCO2 48 mmHg (34-38); PO2 80 mmHg (65-75); TCO2 31 mEq/L (23-27)
[2016-10-18] MEDS: METOPROLOL TARTRATE 25 MG TAB PO SCH (21:24)
[2016-10-18] MEDS: APIXABAN 5 MG TAB PO SCH (21:28)
[2016-10-18] MEDS: AMIODARONE HCL 200 MG TAB PO SCH (21:28)
[2016-10-18] MEDS: BUDESONIDE/FORMOTEROL 160/4.5 60 PUFFS/MDI IH SCH (21:31)
[2016-10-19 00:09] VITALS: TEMP 98.1
[2016-10-19 05:25] LABS: % IMMATURE GRANULYOCYTES 0.7 % (0.0-1.1); ABSOLUTE IMMATURE GRANULOCYTES 0.05 10^3/uL (0.00-0.10); ADD DIFF? NO; ADD MORPH? NO; ADD SCAN? NO; ATYPICAL LYMPHOCYTE FLAG 0 (0-99); FRAGMENT RBC FLAG 0 (0-99); HEMATOCRIT 43.8 % (40.0-51.0); LEFT SHIFT FLG 10 (0-99); LIPEMIA HEMOLYSIS FLAG 90 (0-99); MEAN CELL HEMOGLOBIN 35.5 pg (27.9-34.1); MEAN CELL HEMOGLOBIN CONCENTR. 34.2 g/dL (32.4-36.7); MEAN CELL VOLUME 103.8 fL (81.5-99.8); MEAN PLATELET VOLUME 10.9 fL (8.7-11.7); PLATELET CLUMPS FLAG 0 (0-99); PLATELET COUNT 86 10^3/uL (150-400); RED BLOOD CELL COUNT 4.22 10^6/uL (4.40-6.38); RED CELL DISTRIBUTION WIDTH 12.2 % (11.5-15.2)
[2016-10-19 05:53] LABS: ANION GAP 7 mEq/L (8-16); CALCIUM 8.7 mg/dL (8.5-10.4); CARBON DIOXIDE 31 mEq/l (22-31); CHLORIDE 95 mEq/L (97-110); GLOMERULAR FILTRATION RATE > 60; GLUCOSE 112 mg/dL (70-100); POTASSIUM 4.5 mEq/L (3.5-5.2); SODIUM 133 mEq/L (134-144)
[2016-10-19 06:04] LABS: TROPONIN I 0.274 ng/mL (0-0.034)
[2016-10-19 06:07] LABS: CK-MB INTERPRETATION POSITIVE (NEGATIVE); CREATINE KINASE-MB FRACTION 4.95 ng/mL (0-3.19)
[2016-10-19 06:24] VITALS: RESP 16
[2016-10-19 06:38] LABS: INR 1.34 (0.83-1.16); PROTIME(PATIENT) 16.6 SEC (12.0-15.0)
[2016-10-19] MEDS: AMIODARONE HCL 200 MG TAB PO SCH (08:30)
[2016-10-19] MEDS: APIXABAN 5 MG TAB PO SCH (08:30)
[2016-10-19] MEDS: METOPROLOL TARTRATE 25 MG TAB PO SCH (08:35)
--- NOTE | 2016-10-19 08:44 | CPEKG ---
Heart Rate: 62 RR Interval: 968 P-R Interval: 212 QRSD Interval: 158 QT Interval: 488 QTC Interval: 496 P [place]: 31 QRS [place]: -70 T Wave [place]: -52 EKG Severity - ABNORMAL ECG - EKG Impression: SINUS RHYTHM EKG Impression: RBBB AND LAFB Electronically Signed By: Ramses Lion 19-Oct-2016 20:30:19
[2016-10-19] MEDS: BUDESONIDE/FORMOTEROL 160/4.5 60 PUFFS/MDI IH SCH (08:52)
[2016-10-19] MEDS ORDERED: FUROSEMIDE 40 MG TAB PO SCH (09:00)
[2016-10-19] MEDS ORDERED: POTASSIUM CL 20 MEQ TAB PO SCH (09:00)
[2016-10-19] MEDS ORDERED: SPIRONOLACTONE 25 MG TAB PO SCH (09:00)
[2016-10-19 09:55] VITALS: BP 94/55; PULSE 61; O2SAT 93
--- NOTE | 2016-10-19 10:49 | HOSPPROG ---
Hospitalist Progress Note Assessment/Plan: 71 yo M w copd, AF, systolic heart failure admitted w hypoxemic resp failure following AF ablation resp failure: suspect 2/2 volume and orthopnea in setting of MR improved w diuresis AF: in sinus MR: possibly a candidate for surgery dispo: home today Subjective: feels better. case d/w sabrina sen, cardiology NO Objective: Vital Signs Temp Pulse Resp BP Pulse Ox 36.7 C 61 16 94/55 L 93 10/19/16 08:00 10/19/16 09:00 10/19/16 09:00 10/19/16 09:00 10/19/16 09:00 Laboratory Results 10/19/16 05:15 10/19/16 05:15 10/18/16 10/19/16 10/20/16 05:59 05:59 05:59 Intake Total 800 Output Total 550 Balance 250 PT 16.6 SEC (12.0-15.0) H 10/19/16 06:15 INR 1.34 (0.83-1.16) H 10/19/16 06:15 - Physical Exam Constitutional: no apparent distress, appears nourished Eyes: PERRL, anicteric sclera Ears, Nose, Mouth, Throat: moist mucous membranes, hearing normal Cardiovascular: regular rate and rhythym, no murmur, rub, or gallop Respiratory: no respiratory distress, no rales or rhonchi Gastrointestinal: normoactive bowel sounds, soft, non-tender abdomen Genitourinary: no bladder fullness, No leon in urethra Skin: warm, normal color Musculoskeletal: full muscle strength, no muscle tenderness Neurologic: AAOx3, sensation intact bilaterally Psychiatric: interacting appropriately, not anxious Lymph, Heme, Immunologic: no cervical LAD ICD10 Worksheet Patient Problems: Problems Problem Status Onset Atrial fibrillation and flutter Acute Chronic Disease Mgmt/Transitional Care Acute Dyspnea Acute Peripheral edema Acute Rapid atrial fibrillation Acute
--- NOTE | 2016-10-19 18:33 | ECHO ---
[id number] + + [address] : : [place] [address] : : [phone] + + Adult Echocardiographic Report + -----+ :Name: NARA KIMBALL Bellaudjennifer Date: 10/19/2016 10:05 AM : : Hospital Admission Number: [id number] Location : 251: :: 1945 Gender: Male Height: 73 in : :Age: 71 yrs Race: WH Weight: 215 lb : :Reason For Study: Eval LV Fx : : BSA: 2.2 meters2 : :History: Post Ablation : + -----+ MMode/2D Measurements \T\ Calculations IVSd: 1.1 cm LVIDd: 5.6 cm FS: 31.1 % MV Diam: 3.1 cm LVPWd: 1.1 cm LVIDs: 3.8 cm EDV(Teich): 151.6 ml ESV(Teich): 63.4 ml EF(Teich): 58.2 % Ao root diam: 3.8 cm LVOT diam: 2.1 cm ACS: 2.4 cm LVOT area: 3.5 cm2 Normal Measurement Values: + + :LVIDd (3.5-5.7cm) IVSd (0.6-1.1cm) LVPWd (0.6-1.1cm) Aortic Root (2.0-3.7cm)Left Atrium (1.5-4.0cm): :LV Vol(d) (76-115ml) LV Vol(s) (29-48ml) Ejec Fraction (50-65%)PV Gigi (0.6- 1.2m/s) TV Gigi (0.4-1.0m/s) : :MV E Gigi (0.8-1.0m/s)MV A Gigi (0.3-1.0m/s)LVOT Gigi (0.7-1.2m/s) Asc Ao Gigi ( 0.9-1.8m/s) : + + Doppler Measurements \T\ Calculations MV E max gigi: MV V2 mean: Ao V2 max: LV V1 max: 111.6 cm/sec 57.2 cm/sec 90.9 cm/sec 67.6 cm/sec MV A max gigi: MV mean PG: Ao max PG: LV V1 max P.1 cm/sec 1.7 mmHg 3.3 mmHg 1.8 mmHg MV E/A: 3.3 MV V2 VTI: 33.3 cm LV V1 mean PG: MV area (1 diam): KAN(V,D): 2.6 cm2 0.99 mmHg LV V1 mean: 7.5 cm2 46.7 cm/sec MVA(VTI): 1.4 cm2 LV V1 VTI: MV Flow area 13.3 cm (1diam): 7.5 cm2 MR max gigi: MR(RF 1 diam): SV(MV 1 diam): PA V2 max: 431.1 cm/sec 37.3 % 248.2 ml 66.5 cm/sec MR max PG: SI(MV 1 diam): PA max P.5 mmHg 1.8 mmHg 111.9 ml/m2 SV(LVOT): 46.1 ml TR max gigi: RF(MV,LVOT)(1diam): 236.2 cm/sec 0.81 TR max P.3 mmHg RAP systole: 5.0 mmHg RVSP(TR): 27.3 mmHg Left Ventricle The left ventricle is normal in size. There is mild concentric left ventricular hypertrophy. The left ventricular ejection fraction is normal. Ejection Fraction = 58%. There is Doppler evidence for diastolic dysfunction. Right Ventricle Borderline right ventricular enlargement. The right ventricular systolic function is mildly reduced. Atria The left atrium is severely dilated. The right atrium is mildly dilated. Mitral Valve The mitral valve leaflets appear thickened, but open well. There is no evidence of mitral valve prolapse. There is no mitral valve stenosis. There is an eccentric jet of moderate to severe mitral regurgitation directed posteriorly. Tricuspid Valve Normal tricuspid valve. There is mild tricuspid regurgitation. Right ventricular systolic pressure is normal. Aortic Valve The aortic valve is trileaflet. All three leaflets are thickened and sclerotic. There is no aortic stenosis. There is no aortic insufficiency. Pulmonic Valve The pulmonic valve is not well visualized. There is no pulmonic valvular regurgitation. Great Vessels The aortic root is normal size. Pericardium/Pleural There is no pericardial effusion. Conclusion A complete two-dimensional transthoracic echocardiogram was performed (2D, M-mode, Doppler and color flow Doppler). 1. The left ventricle is normal in size. There is mild concentric left ventricular hypertrophy. The Ejection Fraction = 58%. 2. Borderline right ventricular enlargement. The right ventricular systolic function is mildly reduced. 3. The left atrium is severely dilated. 4. The mitral valve leaflets appear thickened, but open well. There is an eccentric jet of moderate to severe mitral regurgitation directed posteriorly. 5. The aortic valve is trileaflet. All three leaflets are thickened and sclerotic. There is no aortic stenosis. There is no aortic insufficiency. 6. There is no pericardial effusion. Final Reading Physician: Ramses Lion MD electronically signed on 10/19/2016 06:32 PM Ordering Physician: Ernesto Hsu Performed By: Manny Santoyo, SEACS
--- NOTE | 2016-10-19 19:27 | EPPROC ---
Electrophysiology Procedure Note: ELECTROPHYSIOLOGIC STUDY AND CATHETER MEDIATED ABLATION FOR SUBEUSTACHIAN ISTHMUS DEPENDENT COUNTERCLOCKWISE ATRIAL FLUTTER: INDICATION: Recurrent atrial flutter which was difficult to control and was causing tachycardiomyopathy PROCEDURES PERFORMED: 66863-59 EP evaluation with RA/RV/LA pace/record, with arrhythmia induction 46982-13 EP evaluation with RA/RV pace record, insert/reposition catheter, with arrhythmia induction 04761 SVT ablation 71064 3D mapping Fluoroscopy Catheters & Anesthesia: The patient arrived in the Electrophysiology Laboratory in the fasting state. The right clavicular region, right groin, and left groin area were prepped and draped in the usual sterile manner. Anesthesiologist administered general anesthesia. Appropriate non-invasive blood pressure, pulse oximetry and end- tidal CO2 monitoring was established. All catheters were placed percutaneously using the modified Seldinger technique , and advanced into position under fluoroscopic guidance. One decapolar Livewire was placed in the CS and another in the ALRA position using the RFV. On arrival to the Electrophysiology Laboratory the patient was in atrial flutter , CL 260ms. Entrainment mapping from lateral TA, septal TA, proximal CS and distal CS confirmed cavotricuspid isthmus dependent atrial flutter. In preparation for ablation of typical atrial flutter, a high-resolution 3D (3 dimensional) Carto electroanatomical map of the sub-Eustachian isthmus and right atrium was obtained during pacing of the posterolateral coronary sinus. For ablation of typical atrial flutter, #8 [place] deflectable quadrapolar electrode catheter (2mm-5mm-2mm spacing) with 3.5 mm irrigated tip electrode and location sensor for the Context[employer] mapping system was inserted in the long sheath and advanced to the right atrium. Radiofrequency applications were applied between the tricuspid annulus at 0630 oclock as seen in the ASHWIN view and the inferior vena cava. The atrial flutter terminated during ablation. Further ablation was performed till complete line of block was created. T Following ablation of the atrial flutter, programmed atrial stimulation was performed. No atrial arrhythmias were inducible post ablation. Bidirectional block was also confirmed by pacing. The catheters were removed. The patient was transferred to the cardiovascular holding area in stable condition. Vascular access sheaths were removed in the holding area. There were no apparent complications. Results: Typical cavotricuspid isthmus dependent right atrial flutter Successful ablation with complete line of block across the isthmus CONCLUSIONS: * Cavotricuspid isthmus dependent counterclockwise atrial flutter. * Successful catheter mediated ablation of cavotricuspid isthmus achieving bi- directional conduction block across cavotricuspid isthmus. * No atrial arrhythmias inducible post ablation. * No apparent complications. Patient Problems: Problems Problem Status Onset Atrial fibrillation and flutter Acute Chronic Disease Mgmt/Transitional Care Acute Dyspnea Acute Peripheral edema Acute Rapid atrial fibrillation Acute
[2016-10-20] MEDS ORDERED: FUROSEMIDE 20 MG TAB PO SCH (12:00)
--- NOTE | 2016-10-20 15:53 | GDS ---
[f rep st] DISCHARGE SUMMARY /[id number]/MODL
--- NOTE | 2016-10-20 16:33 | GDS ---
[f rep st] DISCHARGE SUMMARY ADMITTING DIAGNOSES: 1. Atrial flutter. 2. Planned atrial flutter ablation. DISCHARGE DIAGNOSES: Status post successful atrial flutter ablation. COURSE OF HOSPITALIZATION: The patient was seen by Dr. Hsu in the clinic with atrial flutter that was difficult to control because of tachy cardiomyopathy development. It was determined the best course of action would be to proceed with electrophysiology study and atrial flutter ablation if appropriate. He was taken to the EP lab by Dr. Ernesto Hsu on 10/18/2016, where he was able to isolate and successfully ablate with no complications. CONCLUSIONS: 1. Cavotricuspid isthmus dependent counterclockwise atrial flutter. 2. Successful catheter mediated ablation of the cavotricuspid isthmus achieving bidirectional conduction block across cavotricuspid isthmus. 3. No atrial arrhythmias inducible post ablation. 4. There were no apparent complications. Post ablation, the pt went into CHF and Lasix was given, BiPAP placed. Over the ensuing three hours, pt improved. However, he was taken to ICU step-down for overnight observation, where he has done well. He was seen by hospitalist , Dr. Tony Workman. The respiratory failure was suspected to be secondary to volume, which he did improve with diuresis. Further evaluation of his mitral regurgitation will need to be done in the clinic setting. At this time, it is felt that he is stable for discharge. He was evaluated by Dr. Ernesto Hsu early this morning. Echocardiogram on 10/20/2015 showed trivial mild left ventricular hypertrophy with ejection fraction of 58%. Left atrium severely dilated. Mitral valve showed eccentric jet of moderate to severe mitral regurgitation. No aortic insufficiency noted. No aortic stenosis noted. There was no pericardial effusion. PHYSICAL EXAMINATION: GENERAL: Exam on day of discharge, the patient is feeling well. His is at bedside. Determination of best timing for diuretics was requested by his . It was decided to adjust his second dose of Lasix to noon instead of 2 p.m. so that he is not awaken during the night having to go to the bathroom. VITAL SIGNS: His resting blood pressure 94/55, heart rate 61 and regular. There were no arrhythmias on telemetry. HEART: Rate is regular with 3/6 systolic murmur. No gallops or rubs noted. LUNGS: Clear to auscultation. No wheezes, rales, or rhonchi. ABDOMEN: Groin site intact with no bleeding or ecchymosis. We discussed groin care keeping the site clean with soap and water. No ointments. No dressing necessary. He understands no sitting in a tub of water. Okay to shower. He will follow up with Dr. Hsu in 1-2 weeks. At this time, he currently is stable for discharge. /[id number]/MODL MTDD
== END 2016-10-19 11:30 | disposition home or self-care (01) ==
LOC: FCATH 06:57 → F2W 11:22 → F2N 12:30
PROVIDERS: ADMIT Internal Medicine Cardiovascular Disease; ATTEND Internal Medicine Cardiovascular Disease
PROC: 02583ZZ Destruction of Conduction Mechanism, Percutaneous Approach (ICD-10-PCS; principal; 2016-10-18)
PROC: 5A1213Z Performance of Cardiac Pacing, Intermittent (ICD-10-PCS; principal; 2016-10-18)
PROC: 02K83ZZ Map Conduction Mechanism, Percutaneous Approach (ICD-10-PCS; principal; 2016-10-18)
PROC: 4A023FZ Measurement of Cardiac Rhythm, Percutaneous Approach (ICD-10-PCS; principal; 2016-10-18)
DX: I48.92 Unspecified atrial flutter (principal); I48.91 Unspecified atrial fibrillation; J96.10 Chronic respiratory failure, unspecified whether with hypoxia or hypercapnia; I50.20 Unspecified systolic (congestive) heart failure; I11.0 Hypertensive heart disease with heart failure; J44.9 Chronic obstructive pulmonary disease, unspecified; I71.4 Abdominal aortic aneurysm, without rupture; N40.0 Benign prostatic hyperplasia without lower urinary tract symptoms; I34.0 Nonrheumatic mitral (valve) insufficiency; I42.9 Cardiomyopathy, unspecified; Z87.891 Personal history of nicotine dependence
CPT/HCPCS: 71010; 93005; 93306; 93312; 93613; 93621; 93653; C1730; C1732; J0330; J1100; J1644; J1940; J2250; J2370; J2405; J2704; J3010

== ENCOUNTER 2016-10-22 15:23 | Inpatient (IN) | payer OTHER ==
--- NOTE | 2016-10-22 15:44 | CPEKG ---
Heart Rate: 117 RR Interval: 513 QRSD Interval: 146 QT Interval: 372 QTC Interval: 519 QRS [place]: -71 T Wave [place]: -13 EKG Severity - ABNORMAL ECG - EKG Impression: ATRIAL FLUTTER, A-RATE 306 EKG Impression: RBBB AND LAFB Electronically Signed By: Fabian Banerjee 22-Oct-2016 21:01:28
--- NOTE | 2016-10-22 15:49 | EDPHY ---
H & P Stated Complaint: sudden onset +SOB & weakness Time Seen by Provider: 10/22/16 15:48 - Personal History Current Tetanus/Diphtheria Vaccine: Yes Current Tetanus Diphtheria and Acellular Pertussis (TDAP): Yes Tetanus Vaccine Date: 1997 - Medical/Surgical History Hx Asthma: No Hx Chronic Respiratory Disease: Yes Hx Diabetes: No Hx Cardiac Disease: Yes Hx Renal Disease: No Hx Cirrhosis: No Hx Alcoholism: No Hx HIV/AIDS: No Hx Splenectomy or Spleen Trauma: No Other PMH: Ablation on saturday for Vfib & CHF Dr. hsu, COPD, stents x2 in AAA 2011, - Social History Smoking Status: Former smoker Constitutional: Initial Vital Signs Temperature (C) 37.2 C 10/22/16 15:27 Heart Rate 100 10/22/16 15:27 Respiratory Rate 16 10/22/16 15:27 Blood Pressure 119/80 10/22/16 15:27 O2 Sat (%) 92 10/22/16 15:27 O2 Delivery Mode [Post Non-Rebreather Mask Procedure 1st] O2 Delivery Mode [Procedural Non-Rebreather Mask 3rd] O2 Delivery Mode [Procedural Non-Rebreather Mask 2nd] O2 Delivery Mode [Procedural Non-Rebreather Mask 1st] O2 Delivery Mode Room Air O2 (L/minute) [Procedural 2nd] 15 O2 (L/minute) [Procedural 1st] 15 Allergies/Adverse Reactions: CATS Allergy (Mild, Uncoded 10/22/16 16:52) SNEEZING/RED EYES Home Medications: Medication Instructions Recorded Budesonide/Formoterol 160/4.5 1 puffs IH BID 09/24/16 [Symbicort 160-4.5 Mcg Inh (*)] Amiodarone HCl [Pacerone (*)] 200 mg PO BID #60 tab 10/02/16 Apixaban [Eliquis] 5 mg PO BID #60 tab 10/02/16 Potassium Cl [Klor-Con 20 meq (*)] 20 meq PO DAILY #30 tab 10/02/16 Spironolactone [Aldactone 25 MG 25 mg PO DAILY #30 tab 10/02/16 (*)] Furosemide [Lasix 40 MG (*)] 80 mg PO DAILY 10/18/16 Metoprolol Tartrate 25 mg PO BID 10/18/16 Furosemide [Lasix 20 MG (*)] 40 mg PO DAILY PRN 10/22/16 Nicotine [Nicoderm Cq 21 mg (*)] 21 mg TD DAILY 10/22/16 Medical Decision Making ED Course/Re-evaluation: CHIEF COMPLAINT: Shortness of breath, weakness. HISTORY OF PRESENT ILLNESS: This patient is an anticoagulated (Eliquis) 71 year old male with history of atrial flutter and atrial fibrillation complaining of shortness of breath and weakness onset today. He underwent cardiac ablation , four days ago with Dr. Hsu. He had felt well since then. Today, he began to feel unwell, weak , and as though his heart rate was "funny". His at bedside states he was napping earlier today, and was notably short of breath. After his nap, he struggled to get out of his easy chair, which is unusual for him. They called Dr. Hsu's nurse, who recommended they present to the emergency department for evaluation. No chest pain, fever, vomiting, or other associated symptoms. REVIEW OF SYSTEMS: A 10 point review of systems was performed and is negative with the exception of the elements mentioned in the history of present illness. PHYSICAL EXAM: HR, BP, O2 Sat, RR. Temp noted General Appearance: Alert, well hydrated, appropriate, and non-toxic appearing. Head: Atraumatic without scalp tenderness or obvious injury Eyes: Pupils equal, round, reactive to light and accommodation, EOMI, no trauma , no injection. Ears: Clear bilaterally, no perforation, normal landmarks Nose: Atraumatic, no rhinorrhea, clear. Throat: There is no erythema or exudates, no lesions, normal tonsils, mucus membranes moist. Neck: Supple, 2+ carotid upstroke, nontender, no lymphadenopathy. Respiratory: Rales at bases bilaterally. No retractions, no distress, no wheezes, and no accessory muscle use. Cardiovascular: Regular rate and rhythm, no murmurs, rubs, or gallops. Bilateral carotid, radial, dorsalis pedis, and posterior tibial pulses intact. Good capillary refill all extremities. Gastrointestinal: Abdomen is soft, nontender, non-distended, no masses, no rebound, no guarding, no peritoneal signs. Musculoskeletal: Normal active ROM of all extremities, atraumatic. Neurological: Alert, appropriate, and interactive. The patient has normal DTRs and non-focal cranial nerves, motor, sensory, and cerebellar exam. Skin: No rashes, good turgor, no nodules on palpation. Past medical history: Atrial fibrillation, atrial flutter, COPD, abdominal aortic aneurysm stats post stent x2, Past surgical history: Foot surgery Family history: Noncontributory Social history: . at bedside. 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 DIAGNOSTICS/PROCEDURES/CRITICAL CARE TIME: Procedure: Conscious sedation. Indication: Cardioversion The patient is an appropriate candidate to tolerate procedural sedation. The patient's vitals signs and mental status are appropriate. The risks, benefits and alternatives of the sedation were discussed with the patient. The patient is ASA classification 1. The patient's Mallampati airway score was 1 and the patient did meet the 3-3-2 airway measurements. A time out was completed. The patient was sedated with 30mg IV Ketamine and 40mg IV Propofol. The patient was monitored with continuous pulse oximetry, classroom monitor and end tidal CO2. There were no complications and no significant hypoxemia. I performed both the sedation and the procedure. The total time I spent at the bedside during the procedural sedation was 30 minutes. The patient was examined after the procedural sedation and has returned to their pre-sedation baseline with normal vital signs and a normal examination. Procedure: Synchronized Electrical Cardioversion. Indication: Dysrhythmia. Risks, benefits, alternatives discussed with the patient and consent obtained. The patient was on a continuous color television console monitor, with airway equipment at the bedside. The patient was on continuous pulse oximetry and passive CO2 monitor. The cardioversion was performed with 150 joules biphasic current. The cardioversion was unsuccessful. The patient tolerated the procedure well with no complications. The procedure was performed by myself. Procedure: Synchronized Electrical Cardioversion, second attempt Indication: Dysrhythmia. Risks, benefits, alternatives discussed with the patient and consent obtained. The patient was on a continuous color television console monitor, with airway equipment at the bedside. The patient was on continuous pulse oximetry and passive CO2 monitor. The cardioversion was performed with 150 joules biphasic current. The cardioversion was unsuccessful. The patient tolerated the procedure well with no complications. The procedure was performed by myself. DIFFERENTIAL DIAGNOSIS: Includes but not limited to atrial fibrillation, atrial flutter, myocardial infarction, pulmonary embolism, congestive heart failure. MEDICAL DECISION MAKING: The 12 lead EKG was interpreted by myself. See hard copy and/or "tracemaster" electronic copy for interpretation. Atrial flutter. Ventricular rate 117. Atrial rate 300. No obvious ischemic changes. 16:09 Spoke with cardiology provider residential solar consultant. Plan for cardioversion. The patient has undergone cardioversion in the past. One did not work, one worked for two days before patient reverted to an abnormal rhythm. Due to patient's recent ablation, cardioversion may be more successful in this case. 16:10 Cardioversion under conscious sedation. 16:24 Cardioversion shock administered. 16:27 Second cardioversion shock administered. Patient has normal rhythm for around 30 seconds to one minute after cardioversion, then reverts to atrial flutter. Plan to admit. Consult cardiology. 16:28 The 12 lead EKG was interpreted by myself. See hard copy and/or "tracemaster" electronic copy for interpretation. Atrial fibrillation. Ventricular rate 115. Atrial rate 300. 16:31 Spoke with hospitalist service. Dr. Patel accepts admission. 16:[address] Curtis, penology professor, at bedside. Plan for 150mg IV amiodarone. Plan to attempt cardioversion tomorrow following increased amiodarone levels. - Data Points Laboratory Results: Laboratory Results 10/22/16 15:45 10/22/16 15:45 10/22/1617 10/22/16 15:45 15:45 15:45 WBC 9.49 10^3/uL 10^3/uL (3.80-9.50) RBC 4.90 10^6/uL 10^6/uL (4.40-6.38) Hgb 17.4 g/dL g/dL (13.7-17.5) Hct 49.7 % % (40.0-51.0) MCV 101.4 fL H fL (81.5-99.8) MCH 35.5 pg H pg (27.9-34.1) MCHC 35.0 g/dL g/dL (32.4-36.7) RDW 12.1 % % (11.5-15.2) Plt Count 133 10^3/uL L 10^3/uL (150-400) MPV 10.7 fL fL (8.7-11.7) Neut % (Auto) 72.6 % % (39.3-74.2) Lymph % (Auto) 15.1 % % (15.0-45.0) Person % (Auto) 10.9 % % (4.5-13.0) Eos % (Auto) 0.2 % L % (0.6-7.6) Baso % (Auto) 0.4 % % (0.3-1.7) Nucleat RBC Rel Count 0.0 % % (0.0-0.2) Absolute Neuts (auto) 6.89 10^3/uL H 10^3/uL (1.70-6.50) Absolute Lymphs (auto) 1.43 10^3/uL 10^3/uL (1.00-3.00) Absolute Monos (auto) 1.03 10^3/uL H 10^3/uL (0.30-0.80) Absolute Eos (auto) 0.02 10^3/uL L 10^3/uL (0.03-0.40) Absolute Basos (auto) 0.04 10^3/uL 10^3/uL (0.02-0.10) Absolute Nucleated RBC 0.00 10^3/uL 10^3/uL (0-0.01) Immature Gran % 0.8 % % (0.0-1.1) Immature Gran # 0.08 10^3/uL 10^3/uL (0.00-0.10) D-Dimer 3.47 ug/mLFEU H ug/mLFEU (0.00-0.50) Sodium 133 mEq/L L mEq/L (134-144) Potassium 4.4 mEq/L mEq/L (3.5-5.2) Chloride 90 mEq/L L mEq/L (97-110) Carbon Dioxide 29 mEq/l mEq/l (22-31) Anion Gap 14 mEq/L mEq/L (8-16) BUN 19 mg/dL mg/dL (7-23) Creatinine 0.9 mg/dL mg/dL (0.7-1.3) Estimated GFR > 60 Glucose 125 mg/dL H mg/dL (70-100) Calcium 9.7 mg/dL mg/dL (8.5-10.4) Magnesium 1.7 mg/dL mg/dL (1.6-2.3) Troponin I 0.083 ng/mL H ng/mL (0-0.034) NT-Pro-B Natriuret Pep 3480 pg/mL H pg/mL (0-125) Medications Given: Discontinued Medications Amiodarone HCl (Amiodarone Hcl) 100 mls @ 600 mls/hr IV ONCE ONE Stop: 10/22/16 16:46 Last Admin: 10/22/16 17:15 Dose: 100 mls Ketamine HCl (Ketamine) 30 mg IVP EDNOW ONE Stop: 10/22/16 16:30 Last Admin: 10/22/16 16:20 Dose: 30 mg Propofol (Diprivan) 40 mg IVP EDNOW ONE Stop: 10/22/16 16:29 Last Admin: 10/22/16 16:20 Dose: 40 mg Departure - Departure Disposition: [facility] Inpatient Acute Clinical Impression: Atrial fibrillation and flutter Condition: Fair Report Scribed for: Fabian Banerjee Report Scribed by: Michelle Santana Date of Report: 10/22/16 Time of Report: 15:51
[2016-10-22 16:08] LABS: % IMMATURE GRANULYOCYTES 0.8 % (0.0-1.1); ABSOLUTE IMMATURE GRANULOCYTES 0.08 10^3/uL (0.00-0.10); ADD DIFF? NO; ADD MORPH? NO; ADD SCAN? NO; ATYPICAL LYMPHOCYTE FLAG 20 (0-99); FRAGMENT RBC FLAG 0 (0-99); HEMATOCRIT 49.7 % (40.0-51.0); HEMOGLOBIN 17.4 g/dL (13.7-17.5); LEFT SHIFT FLG 10 (0-99); LIPEMIA HEMOLYSIS FLAG 90 (0-99); MEAN CELL HEMOGLOBIN 35.5 pg (27.9-34.1); MEAN CELL VOLUME 101.4 fL (81.5-99.8); MEAN PLATELET VOLUME 10.7 fL (8.7-11.7); PLATELET CLUMPS FLAG 0 (0-99); PLATELET COUNT 133 10^3/uL (150-400); RED CELL DISTRIBUTION WIDTH 12.1 % (11.5-15.2)
[2016-10-22 16:16] LABS: ANION GAP 14 mEq/L (8-16); CALCIUM 9.7 mg/dL (8.5-10.4); CARBON DIOXIDE 29 mEq/l (22-31); CHLORIDE 90 mEq/L (97-110); CREATININE 0.9 mg/dL (0.7-1.3); GLOMERULAR FILTRATION RATE > 60; GLUCOSE 125 mg/dL (70-100); MAGNESIUM 1.7 mg/dL (1.6-2.3); POTASSIUM 4.4 mEq/L (3.5-5.2); SODIUM 133 mEq/L (134-144)
[2016-10-22] MEDS ORDERED: PROPOFOL 200 MG/20 ML VIAL ONE (16:18)
[2016-10-22] MEDS ORDERED: KETAMINE 100 MG/10 ML SYR ONE (16:18)
[2016-10-22 16:27] LABS: TROPONIN I 0.083 ng/mL (0-0.034)
[2016-10-22] MEDS ORDERED: PROPOFOL 200 MG/20 ML VIAL IVP ONE (16:28)
[2016-10-22] MEDS ORDERED: KETAMINE 100 MG/10 ML SYR IVP ONE (16:29)
--- NOTE | 2016-10-22 16:31 | CPEKG ---
Heart Rate: 115 RR Interval: 522 QRSD Interval: 158 QT Interval: 388 QTC Interval: 537 QRS Gaffney: -79 T Wave Gaffney: 6 EKG Severity - ABNORMAL ECG - EKG Impression: ATRIAL FIBRILLATION EKG Impression: RBBB AND LAFB Electronically Signed By: Fabian Banerjee 22-Oct-2016 21:01:28
[2016-10-22] MEDS ORDERED: AMIODARONE HCL 100 ML IV ONE (16:37)
[2016-10-22] MEDS ORDERED: AMIODARONE HCL 200 ML IV ONE ×2 (16:38→16:47)
--- NOTE | 2016-10-22 16:53 | PDCARCONS ---
Cardiology Consult Reason for Consult: Recurrent atrial arrhythmia Chief Complaint: Weakness shortness of breath Requesting Physician: Lavonne History of Present Illness: 71-year-old male well known to our service status post discharge from the hospital October 20 after an a flutter ablation. This was uncomplicated. He was doing well until today when her approximately a 2 o'clock he was unable to get up from a chair with shortness of breath and weakness. He was brought to the emergency department where he is found to be in atrial flutter with a rapid ventricular response. He was treated by Dr. Banerjee with cardioversion x2. He maintained sinus rhythm briefly and then reverted to atrial fibrillation. On my arrival he is comfortable without chest pain, shortness of breath, PND, orthopnea. He has had no palpitations syncope or near syncope. Patient has underlying valvular heart disease with moderate to severe mitral regurgitation left atrial enlargement. He has a history of tachy mediated cardiomyopathy with most recent ejection fraction 50%. He has a history of severe peripheral vascular disease with a AAA stent. This is in the presence of underlying COPD. I performed an angiogram on him in 2009. At that time he had normal left ventricular function. Metabolic evaluation has been unremarkable. I am asked to comment on treatment for refractory tachyarrhythmia. History Information - Allergies/Home Medication List Allergies/Adverse Reactions: CATS Allergy (Mild, Uncoded 10/22/16 16:52) SNEEZING/RED EYES Home Medications: Budesonide/Formoterol 160/4.5 [Symbicort 160-4.5 Mcg Inh (*)] 1 puffs IH BID 01/01 [Last Taken 10/18/16] Furosemide [Lasix 40 MG (*)] 80 mg PO DAILY 10/18/16 [Last Taken 10/17/16] Metoprolol Tartrate 25 mg PO BID 10/18/16 [Last Taken 10/17/16] Furosemide [Lasix 20 MG (*)] 40 mg PO DAILY PRN 10/22/16 [Last Taken 10/19/16] Nicotine [Nicoderm Cq 21 mg (*)] 21 mg TD DAILY 10/22/16 [Last Taken 10/22/16] I have personally reviewed and updated: medical history, surgical history - Past Medical History peripheral artery disease Additional medical history: Stents of an abdominal aortic aneurysm - Surgical History Reports: ablation, vascular surgery - Family History Positive for: non-pertinent - Social History Smoking Status: Former smoker Age [age] Years: [age] Sex: Male Congestive Heart Failure History: Yes Hypertension History: No Stroke/TIA/Thromboembolism History: No Vascular Disease History: Yes Diabetes Mellitus: No [id number] Score: 4e Physical Exam Temp Pulse Resp BP Pulse Ox 1 C L 122 H 16 123/78 H 98 10/22/16 16:15 10/22/16 16:39 10/22/16 16:39 10/22/16 16:39 10/22/16 16:44 O2 (L/minute) 2 Constitutional: uncomfortable Eyes: scleral injection Ears, Nose, Mouth, Throat: moist mucous membranes Cardiovascular: systolic murmur, irregularly irregular, tachycardia Peripheral Pulses: 1+: carotid (R), carotid (L), femoral (R), femoral (L), dorsalis-pedis (R), dorsalis-pedis (L) Respiratory: reduced air movement, No expiratory wheeze, No inspiratory crackles Gastrointestinal: normoactive bowel sounds, soft, non-tender abdomen Genitourinary: no bladder fullness Skin: warm, normal color Neurologic: No weakness, No facial droop Psychiatric: other (Sedated) Lymph, Heme, Immunologic: no cervical LAD, no supraclavicular LAD Lab and Imaging 10/22/16 15:45 10/22/16 15:45 WBC 9.49 10^3/uL (3.80-9.50) 10/22/16 15:45 RBC 4.90 10^6/uL (4.40-6.38) 10/22/16 15:45 Hgb 17.4 g/dL (13.7-17.5) 10/22/16 15:45 Hct 49.7 % (40.0-51.0) 10/22/16 15:45 MCV 101.4 fL (81.5-99.8) H 10/22/16 15:45 MCH 35.5 pg (27.9-34.1) H 10/22/16 15:45 MCHC 35.0 g/dL (32.4-36.7) 10/22/16 15:45 RDW 12.1 % (11.5-15.2) 10/22/16 15:45 Plt Count 133 10^3/uL (150-400) L 10/22/16 15:45 MPV 10.7 fL (8.7-11.7) 10/22/16 15:45 Neut % (Auto) 72.6 % (39.3-74.2) 10/22/16 15:45 Lymph % (Auto) 15.1 % (15.0-45.0) 10/22/16 15:45 Island % (Auto) 10.9 % (4.5-13.0) 10/22/16 15:45 Eos % (Auto) 0.2 % (0.6-7.6) L 10/22/16 15:45 Baso % (Auto) 0.4 % (0.3-1.7) 10/22/16 15:45 Nucleat RBC Rel Count 0.0 % (0.0-0.2) 10/22/16 15:45 Absolute Neuts (auto) 6.89 10^3/uL (1.70-6.50) H 10/22/16 15:45 Absolute Lymphs (auto) 1.43 10^3/uL (1.00-3.00) 10/22/16 15:45 Absolute Monos (auto) 1.03 10^3/uL (0.30-0.80) H 10/22/16 15:45 Absolute Eos (auto) 0.02 10^3/uL (0.03-0.40) L 10/22/16 15:45 Absolute Basos (auto) 0.04 10^3/uL (0.02-0.10) 10/22/16 15:45 Absolute Nucleated RBC 0.00 10^3/uL (0-0.01) 10/22/16 15:45 Immature Gran % 0.8 % (0.0-1.1) 10/22/16 15:45 Immature Gran # 0.08 10^3/uL (0.00-0.10) 10/22/16 15:45 D-Dimer 3.47 ug/mLFEU (0.00-0.50) H 10/22/16 15:45 Sodium 133 mEq/L (134-144) L 10/22/16 15:45 Potassium 4.4 mEq/L (3.5-5.2) 10/22/16 15:45 Chloride 90 mEq/L (97-110) L 10/22/16 15:45 Carbon Dioxide 29 mEq/l (22-31) 10/22/16 15:45 Anion Gap 14 mEq/L (8-16) 10/22/16 15:45 BUN 19 mg/dL (7-23) 10/22/16 15:45 Creatinine 0.9 mg/dL (0.7-1.3) 10/22/16 15:45 Estimated GFR > 60 10/22/16 15:45 Glucose 125 mg/dL (70-100) H 10/22/16 15:45 Calcium 9.7 mg/dL (8.5-10.4) 10/22/16 15:45 Magnesium 1.7 mg/dL (1.6-2.3) 10/22/16 15:45 Troponin I 0.083 ng/mL (0-0.034) H 10/22/16 15:45 NT-Pro-B Natriuret Pep 3480 pg/mL (0-125) H 10/22/16 15:45 EKG additional interpertation: Atrial flutter with right bundle branch block, left anterior fascicular block. Post EKG shows atrial fibrillation with right bundle-branch block left anterior fascicular block. A/P Assessment: Impression: Recalcitrant/recurrent atrial flutter/fibrillation post ablation on October 20. At the present time he is hemodynamically stable with relatively good rate control. He is appropriately anticoagulated. Recommendations: Continue load with IV amiodarone overnight. Repeat attempt at cardioversion tomorrow. Patient may require repeat a flutter ablation. Patient has underlying moderate to severe mitral regurgitation with left atrial enlargement. With recurrent dysrhythmia considerations for repair of the mitral valve/Maze procedure. Await limited echocardiogram today for assessment of pericardial effusion. Elevation in troponin post ablation with normal coronary arteries in 2009. Elevation brain atretic peptide post ablation with rapid ventricular response and history of tachy mediated cardiomyopathy. He is on carvedilol and Lasix. Plan: Admit to complete IV load of amiodarone. Continue chronic anticoagulation. Continue beta-shelby and Lasix. Follow-up overnight. Past Medical History - Personal History Current Tetanus/Diphtheria Vaccine: Yes Current Tetanus Diphtheria and Acellular Pertussis (TDAP): Yes Tetanus Vaccine Date: 1997 - Medical/Surgical History Hx Asthma: No Hx Chronic Respiratory Disease: Yes Hx Cardiac Disease: Yes Hx Diabetes: No Hx Renal Disease: No Hx Alcoholism: No Hx Cirrhosis: No Hx HIV/AIDS: No Hx Splenectomy or Spleen Trauma: No Other PMH: Ablation on saturday for Vfib & CHF Dr. arenas, COPD, stents x2 in AAA 2012, - Social History Smoking Status: Former smoker Review of Systems - Review of Systems Constitutional: denies: chills, fever EENTM: no symptoms reported Respiratory: shortness of breath. denies: cough Cardiac: irregular heart rate. denies: chest pain, palpitations Gastrointestinal/Abdominal: no symptoms reported Genitourinary: no symptoms Musculoskelatal: no symptoms Skin: no symptoms Neurological: no symptoms Hematologic/Lymphatic: no symptoms reported Immunologic/allergic: no symptoms reported
[2016-10-22] MEDS ORDERED: FUROSEMIDE 20 MG TAB PO PRN (17:53)
--- NOTE | 2016-10-22 18:09 | ECHO ---
[id number] + + [address] : : [place] [address] : : [phone] + + Adult Echocardiographic Report + -----+ :Name: NARA KIMBALL SStudy Date: 10/22/2016 05:41 PM : : Hospital Admission Number: [id number] Location : 211: :: 1945 Gender: Male : :Age: 71 yrs Race: WH : :Reason For Study: Eval for Pericardial Effusion : :History: New onset Atrial Flutter, Post Ablation, SOB, Chest : :Pain : + -----+ Pericardium/Pleural There is no pericardial effusion. The rhythm is atrial flutter. Conclusion This is a limited echo to evaluate for a pericardial effusion. There is no pericardial effusion. The rhythm is atrial flutter. LV and RV function are preserved Final Reading Physician: Kirk Andres signed on 10/22/2016 06:07 PM Ordering Physician: DAVI MCKEON Performed By: Manny Santoyo, CS
[2016-10-22] MEDS ORDERED: ACETAMINOPHEN 325 MG TAB PO PRN (18:27)
[2016-10-22] MEDS ORDERED: ONDANSETRON 4 MG/2 ML VIAL IVP PRN (18:27)
--- NOTE | 2016-10-22 18:43 | PDGENHP ---
History and Physical History and Physical: CC: Weakness and shortness of breath HISTORY: This patient is brought into the emergency room with his today because of severe weakness and some shortness of breath. Notably he had developed 1st ever atrial fibrillation just about a month ago and was started on anticoagulation here. He came back in here last week and had a ablation procedure with Dr. Ureña 4 days ago. That at the moment was successful and uncomplicated. It should be mentioned that the nurse and are describing to me that after the ablation procedure the patient was unable to lie flat because of dyspnea when he would lie flat though looking back in his record here I see that he also had lower blood pressures during that hospital stay. Other than brief interruption for his ablation procedure the patient has had ongoing anticoagulation with apixaban and he is on that medicine now and states he has been compliant with that. He denies any chest pain, palpitations, cough, leg pain or swelling, nausea or other acute symptoms. His does mention that he has had however significant urinary frequency since going home from his ablation procedure. She states that he did have a Moe catheter in briefly for that procedure. Additionally she states that he has been very weak and spending most of his time sitting in a chair and that he has been unable to lie flat at home similar to what he experienced here in the hospital. In the emergency room he had 2 unsuccessful attempts at electrical cardioversion. I am seeing him up on the PCU after this. There he is sitting up in a chair as he has been unable to lie flat due to dyspnea with lying flat. ROS: A comprehensive 10 system review revealed no other significant findings PAST MEDICAL HISTORY: Atrial fibrillation with no known coronary disease and 1 previous angiography, unable to tolerate rapid rate of atrial fibrillation Most recent cardiac ejection fraction by echocardiogram 50% last week Moderate to severe mitral regurgitation ongoing tobacco abuse COPD Abdominal aortic aneurysm status post stenting Foot surgery FAMILY MEDICAL HISTORY: Father had atrial fibrillation SOCIAL HISTORY: lives with his Smokes cigarettes States 2 drinks per day Fairly sedentary MEDICATIONS: The patients list has been reconciled by our clinical pharmacist in the EMR. I have reviewed the list and ordered appropriate medicines. 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: Variable atrial fibrillation and flutter with rapid ventricular rate Examination: General: alert, oriented, good mentation, relaxed Skin: warm, dry, good color, no rash HEENT: normal Neck: JVD is present no mass Resps: Very mildly labored Lungs: Barely audible sounds Heart: Irregular and tachycardic, and a systolic murmur is audible across the precordium Abdomen: soft, nondistended, nontender, +BS, no mass Upper Extremities: normal Lower Extremities: Some pitting edema, warm No Bleeding or bruising Neurologic: normal speech/language, normal orthopaedic general, no focal weakness IV site: looks good LABORATORY DATA: Chronic macrocytosis without anemia is present D-dimer is elevated at 3 Indeterminate troponin 0.08 BMP is fairly elevated Good renal function RADIOLOGY STUDIES: No imaging studies as of yet 12 LEAD EKG: My reading of 12 lead EKG tracing: Rapid atrial flutter without signs of ischemia LIMITED ECHOCARDIOGRAM DONE TONIGHT: This study showed no evidence of pericardial effusion or tamponade ASSESSMENT: -recurrent rapid atrial fibrillation and flutter several days after an ablation procedure -symptoms of congestive heart failure and edema on legs -inability to lie flat due to dyspnea with doing so -low-grade fever uncertain etiology but would consider possible pneumonia, and possible CAUTI -history of COPD and chronic hypoxemic respiratory failure PLANS: -amiodarone drip -rate control -will need to watch blood pressures closely as they are somewhat low as they have been in the past. This may limit rate control medicines and may need to consider using digoxin to help -consider further cardioversion attempts after on amiodarone -cardiac monitoring -monitor and treat electrolyte abnormalities -repeat troponin but this is likely a cardiac strain issue -blood in urine cultures and urinalysis -chest x-ray data sure no pneumonia -continue Eliquis for the time being I have reviewed the patient's case in detail with Dr. Dr. Fabian Banerjee and Dr. Abraham Curtis I have reviewed the patient's past medical records as part of this assessment, including previous hospital admission records
[2016-10-22 19:28] LABS: COLOR YELLOW; LEUKOCYTE ESTERASE,URINE NEGATIVE (NEGATIVE); NITRITE,URINE NEGATIVE (NEGATIVE)
[2016-10-22 19:33] LABS: MUCUS TRACE /lpf (NONE-1+)
[2016-10-22] MEDS: METOPROLOL TARTRATE 25 MG TAB PO SCH (20:40)
[2016-10-22] MEDS: APIXABAN 5 MG TAB PO SCH (20:40)
[2016-10-22] MEDS: BUDESONIDE/FORMOTEROL 160/4.5 60 PUFFS/MDI IH SCH (20:47)
[2016-10-23] MEDS ORDERED: AMIODARONE HCL 540 MG in D5W 300 ML IV ONE
[2016-10-23 04:47] LABS: INR 1.46 (0.83-1.16); PROTIME(PATIENT) 17.7 SEC (12.0-15.0)
[2016-10-23 04:56] LABS: ANION GAP 11 mEq/L (8-16); CALCIUM 8.7 mg/dL (8.5-10.4); CARBON DIOXIDE 25 mEq/l (22-31); CHLORIDE 94 mEq/L (97-110); CREATININE 0.8 mg/dL (0.7-1.3); GLOMERULAR FILTRATION RATE > 60; GLUCOSE 104 mg/dL (70-100); MAGNESIUM 1.8 mg/dL (1.6-2.3); POTASSIUM 3.9 mEq/L (3.5-5.2); SODIUM 130 mEq/L (134-144)
[2016-10-23] MEDS: BUDESONIDE/FORMOTEROL 160/4.5 60 PUFFS/MDI IH SCH ×2 (08:05→21:16)
--- NOTE | 2016-10-23 09:08 | CPEKG ---
Heart Rate: 53 RR Interval: 1132 P-R Interval: 204 QRSD Interval: 156 QT Interval: 480 QTC Interval: 451 P Mclean: 36 QRS Mclean: -72 T Wave Mclean: -27 EKG Severity - ABNORMAL ECG - EKG Impression: SINUS RHYTHM EKG Impression: SUPRAVENTRICULAR BIGEMINY EKG Impression: RBBB AND LAFB Electronically Signed By: Alverto Abbott 23-Oct-2016 17:58:38
--- NOTE | 2016-10-23 09:30 | WOCRNPDOC ---
WOCRN Advanced Assessment Note - Skin Integrity Problem, Advanced Assess Bilateral Buttock Pressure Injury Dressing Type: Allevyn Life Exudate Amount: None Integumentary Issue Intervention: Dressing Removed Ayse Wound Tissue: Blanching, Erythema Site Measurement - Head-to-Toe Length X Width X Depth (cm): 1x1x0 on bilateral distal sacrum/buttocks Pressure Injury Stage: Stage 1 Pressure Injury Present on Admit: Yes Skin Integrity Problem Comment: Education with patient and his about offloading and pressure injury prevention. All questions answered. Wound care will sign off. Please reconsult prn.
[2016-10-23] MEDS ORDERED: VANCOMYCIN 1.5 GM in D5W 250 ML IV SCH (10:00)
[2016-10-23] MEDS: APIXABAN 5 MG TAB PO SCH ×2 (10:38→20:32)
[2016-10-23] MEDS: NICOTINE 21 MG/24 HR PATCH TD SCH (10:41)
--- NOTE | 2016-10-23 10:57 | SOAPPROG ---
JIGAR Progress Note Assessment/Plan: Assessment: 1. Post ablation atrial fibrillation status post successful cardioversion to sinus rhythm with IV amiodarone. 2. Atrial flutter status post successful ablation. 3. 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 4. Moderate mitral regurgitation associated with pulmonary hypertension. 5. COPD 6. New diagnosis of bacteremia. Impression: Clinically improved overnight as he converted with IV amiodarone. Shortness of breath has improved. He has had no fever or chills. He has no chest pain. Recommendations: Continue IV amiodarone load. Transition to oral amiodarone tomorrow. Continue current medical therapy for cardiomyopathy. No further cardiac testing at this point. 10/23/16 10:53 Subjective: Much better today. Converted spontaneously overnight. No shortness of breath, no fever no chills. No chest pain. Reviewed past echocardiograms at cath conference today. Objective: Medications Generic Name Dose Route Start Last Admin Trade Name Freq PRN Reason Stop Dose Admin Amiodarone HCl 540 mg/ 300 mls @ 16.667 mls/hr 10/23/16 00:00 10/22/16 23:37 Dextrose IV 10/23/16 17:59 300 mls ONCE ONE Apixaban 5 mg 10/22/16 21:00 10/23/16 10:38 Eliquis PO 04/20/17 20:59 5 mg BID MIRTA Furosemide 40 mg 10/22/16 17:53 Lasix PO 04/20/17 17:52 DAILY PRN EDEMA Furosemide 80 mg 10/23/16 09:00 Lasix PO 04/21/17 08:59 DAILY [facility] Metoprolol Tartrate 25 mg 10/22/16 21:00 10/22/16 20:40 Lopressor PO 04/20/17 20:59 25 mg BID MIRTA Nicotine 21 mg 10/23/16 09:00 10/23/16 10:41 Nicoderm Cq TD 04/21/17 08:59 21 mg DAILY MIRTA Spironolactone 25 mg 10/23/16 09:00 Aldactone PO 04/21/17 08:59 DAILY MIRTA Vital Signs Temp Pulse Resp BP Pulse Ox 36.4 C 59 L 12 92/53 L 95 10/23/16 07:43 10/23/16 08:05 10/23/16 08:05 10/23/16 07:43 10/23/16 08:05 Microbiology 10/22/16 19:26 Blood Panel (PCR) - Final Blood Streptococcus Laboratory Results 10/23/16 04:11 10/22/16 10/23/16 10/24/16 05:59 05:59 05:59 Intake Total 790 Output Total 305 Balance 485 PT 17.7 SEC (12.0-15.0) H 10/23/16 04:11 INR 1.46 (0.83-1.16) H 10/23/16 04:11 Laboratory Tests 10/22/16 10/23/16 15:45 04:11 Potassium 3.9 Troponin I 0.083 H 0.090 H NT-Pro-B Natriuret Pep 3480 H 2480 H TSH 3.880 Physical Exam - Physical Exam General Appearance: alert, no apparent distress EENT: normal ENT inspection Neck: non-tender, full range of motion Respiratory: decreased breath sounds, No crackles, No rales Cardiac/Chest: normal peripheral pulses, regular rate, rhythm, No edema Peripheral Pulses: 1+: carotid (R), carotid (L), femoral (R), femoral (L) Abdomen: normal bowel sounds, non-tender Skin: normal color, warm/dry Lymphatic: no adenopathy Extremities: normal range of motion Neuro/Psych: No facial droop ICD10 Worksheet Patient Problems: Problems Problem Status Onset Atrial fibrillation and flutter Acute Chronic Disease Mgmt/Transitional Care Acute Rapid atrial fibrillation Acute Dyspnea Acute Peripheral edema Acute
[2016-10-23] MEDS: METOPROLOL TARTRATE 25 MG TAB PO SCH ×2 (11:00→21:04)
[2016-10-23] MEDS: FUROSEMIDE 40 MG TAB PO SCH (11:00)
[2016-10-23] MEDS: POTASSIUM CL 20 MEQ TAB PO SCH (11:01)
[2016-10-23] MEDS: SPIRONOLACTONE 25 MG TAB PO SCH (11:02)
--- NOTE | 2016-10-23 11:58 | HOSPPROG ---
Hospitalist Progress Note Assessment/Plan: 71-year-old man recently admitted here for AFib flutter status post cardioversion and ablation. He comes back in today with increasing weakness and shortness of breath. He was 1st diagnosed about a month ago here with AFib flutter with started on anticoagulation at that time. He has not had any fevers chills or night sweats that he recalls although did have a low-grade fever on admission. 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 He has had increased urinary urgency and frequency since his admission last month when he was started on Lasix. # recurrent rapid atrial fibrillation and flutter several days after an ablation procedure. Placed on amiodarone overnight and has since converted to sinus rhythm. Discussed with Dr. Curtis in detail. * Continue IV load with amiodarone * Monitor rhythm and rate and continue anticoagulation # bacteremia: Patient with strep bacteremia noted with no clear source although he has had some urinary symptoms since starting Lasix. * Given a dose of Vanco, will and consult Infectious Disease and defer antibiotic changes until they see * Await urine cultures. # COPD with chronic hypoxemic respiratory failure, resume Spiriva and continue his usual respiratory medications. # AAA: Status post stent x2 Pt will need greater then 2 midnight stay for ongoing eval for bacteremia and IV amiodarone loading. Subjective: Patient new to me and chart reviewed. Has no significant localizing symptoms for his bacteremia except possible urinary although it seem unusual to have a strep species in the urine. Does have aortic stents for many years. No abdominal pain, he has no teeth and denies any gum pain. No obvious open sores although had some stage I decubitus noted on exam. Objective: Vital Signs Temp Pulse Resp BP Pulse Ox 36.8 C 59 L 14 94/54 L 95 10/23/16 11:44 10/23/16 11:44 10/23/16 11:44 10/23/16 11:44 10/23/16 11:44 Microbiology 10/22/16 19:26 Blood Panel (PCR) - Final Blood Streptococcus Laboratory Results 10/23/16 04:11 10/22/16 10/23/16 10/24/16 05:59 05:59 05:59 Intake Total 790 360 Output Total 305 175 Balance 485 185 PT 17.7 SEC (12.0-15.0) H 10/23/16 04:11 INR 1.46 (0.83-1.16) H 10/23/16 04:11 - Physical Exam Constitutional: no apparent distress, not in pain Eyes: PERRL, EOMI Ears, Nose, Mouth, Throat: moist mucous membranes, hearing normal Cardiovascular: regular rate and rhythym, systolic murmur Respiratory: no respiratory distress, reduced air movement (Bilateral) Gastrointestinal: normoactive bowel sounds, soft, non-tender abdomen, no palpable masses Genitourinary: no bladder fullness Skin: warm Neurologic: AAOx3 Psychiatric: interacting appropriately, flat affect ICD10 Worksheet Patient Problems: Problems Problem Status Onset Atrial fibrillation and flutter Acute Chronic Disease Mgmt/Transitional Care Acute Rapid atrial fibrillation Acute Dyspnea Acute Peripheral edema Acute
[2016-10-23] MEDS: TIOTROPIUM INHALER 18 MCG/DOSE 5 DOSE/MDI IH SCH (14:49)
[2016-10-23] MEDS: cefTRIAXone 2 GM in D5W 50 ML IV SCH (14:50)
--- NOTE | 2016-10-23 15:05 | ECHO ---
[id number] + + [address] : : [place] [address] : : [phone] + + Adult Echocardiographic Report + -----+ :Name: NARA KIMBALL SStudy Date: 10/23/2016 01:46 PM : : Hospital Admission Number: [id number] Location : 211: :: 1945 Gender: Male Height: 73 in : :Age: 71 yrs Race: WH Weight: 218 lb : :Reason For Study: Eval Valves : : BSA: 2.2 meters2 : :History: 06/19 blood cx bottles positive for streptococcus : + -----+ MMode/2D Measurements \T\ Calculations IVSd: 1.0 cm LVIDd: 5.7 cm FS: 36.0 % MV Diam: 3.1 cm LVPWd: 1.2 cm LVIDs: 3.7 cm EDV(Teich): 163.2 ml ESV(Teich): 57.3 ml EF(Teich): 64.9 % Ao root diam: 3.7 cm ACS: 2.0 cm Normal Measurement Values: + + :LVIDd (3.5-5.7cm) IVSd (0.6-1.1cm) LVPWd (0.6-1.1cm) Aortic Root (2.0-3.7cm)Left Atrium (1.5-4.0cm): :LV Vol(d) (76-115ml) LV Vol(s) (29-48ml) Ejec Fraction (50-65%)PV Gigi (0.6- 1.2m/s) TV Gigi (0.4-1.0m/s) : :MV E Gigi (0.8-1.0m/s)MV A Gigi (0.3-1.0m/s)LVOT Gigi (0.7-1.2m/s) Asc Ao Gigi ( 0.9-1.8m/s) : + + Doppler Measurements \T\ Calculations MV E max gigi: MV V2 mean: Ao mean PG: LV V1 max: 95.3 cm/sec 62.7 cm/sec 3.0 mmHg 73.1 cm/sec MV mean P.9 mmHg Ao V2 mean: LV V1 max PG: MV V2 VTI: 21.0 cm 78.3 cm/sec 2.1 mmHg MV area (1 diam): Ao V2 VTI: 17.6 cmLV V1 mean P.4 cm2 1.1 mmHg MV Flow area(1diam): LV V1 mean: 47.1 cm/sec 7.4 cm2 LV V1 VTI: 12.4 cm MR max gigi: MR(RF 1 diam): SV(MV 1 diam): PA V2 max: 419.3 cm/sec 179.3 % 156.2 ml 78.7 cm/sec MR max PG: SI(MV 1 diam): PA max P.3 mmHg 70.0 ml/m2 2.5 mmHg TR max gigi: RF(MV,Ao)(1 diam): - 267.3 cm/sec 0.20 TR max P.6 mmHg RAP systole: 10.0 mmHg RVSP(TR): 38.6 mmHg Left Ventricle The left ventricle is normal in size. There is normal left ventricular wall thickness. The left ventricular ejection fraction is normal. Ejection Fraction = 65%. There is Doppler evidence for diastolic dysfunction. Right Ventricle The right ventricle is normal in size and function. Atria The left atrium is moderate to severely dilated. The Left Atrial Volume is 46 ml/m2. The right atrium is mildly dilated. Mitral Valve The mitral valve leaflets appear thickened, but open well. There is no evidence of mitral valve prolapse. There is no mitral valve stenosis. There is moderate mitral regurgitation. There is an eccentric jet of moderate to severe mitral regurgitation directed posteriorly. Tricuspid Valve Normal tricuspid valve. There is mild tricuspid regurgitation. Right ventricular systolic pressure is normal. Aortic Valve There is mild aortic valve calcification. There is no aortic stenosis. There is no aortic insufficiency. Pulmonic Valve The pulmonic valve is normal in structure and function. There is no pulmonic valvular regurgitation. Great Vessels The aortic root is normal size. Pericardium/Pleural There is no pericardial effusion. Conclusion A complete two-dimensional transthoracic echocardiogram was performed (2D, M-mode, Doppler and color flow Doppler). There is no evidence of a mass or vegetation. This does not rule out endocarditis. The left ventricular ejection fraction is normal. Ejection Fraction = 65%. There is Doppler evidence for diastolic dysfunction. The left atrium is moderate to severely dilated. The Left Atrial Volume is 46 ml/m2. The mitral valve leaflets appear thickened, but open well. There is moderate mitral regurgitation. There is an eccentric jet of moderate to severe mitral regurgitation directed posteriorly. There is mild tricuspid regurgitation. Right ventricular systolic pressure is normal. There is mild aortic valve calcification. The pulmonic valve is normal in structure and function. There is no pericardial effusion. There is no evidence of a mass or vegetation. This does not rule out endocarditis. Final Reading Physician: Kirk Andres signed on 10/23/2016 03:03 PM Ordering Physician: Shira Thurman Performed By: Manny Santoyo, SEACS
[2016-10-23] MEDS ORDERED: ZOLPIDEM TARTRATE 5 MG TAB PO PRN (15:48)
[2016-10-23] MEDS ORDERED: IOPAMIDOL (ISOVUE-300) 100 ML BTL ONE (18:29)
--- NOTE | 2016-10-23 18:38 | GCON ---
[f rep st] CONSULTATION DATE OF CONSULTATION: 10/23/2016 REFERRING PHYSICIAN: Dr. Megan Lezama. REASON FOR CONSULTATION: Positive blood cultures with Streptococcus. CHIEF COMPLAINT: Shortness of breath and weakness. HISTORY OF PRESENT ILLNESS: This is a 71-year-old male with a past medical history signif icant for COPD, abdominal aortic aneurysm, status post stenting, atrial fibrillation, who has been i n and out of the hospital over the past couple of months for cardiac reasons. He initially came in around September for new onset atrial flutter with rapid ventricular response. He also had congestive he art failure and newly diagnosed moderate nonischemic cardiomyopathy. He did undergo 2 attempts at c ardioversion and then eventually went into sinus rhythm. He is on amiodarone. He was readmitted on October 18 due to volume overload. He comes back again now today because of increasing weakness and shortness of breath. He states that he has actually been short of breath over the past 4 or 5 weeks . He cannot recall fevers or shaking chills recently, although in the ER yesterday he did have a lo w-grade temperature to 37.9. Blood cultures x2 sets were drawn. All 4 bottles are growing out Stre ptococcus species not further identified at present. He only had a limited echocardiogram which baron wed no pericardial effusion. He had a chest x-ray done which showed no evidence of pneumonia. He d oes have calcified granulomatous lymphadenopathy noted. When positive cultures were identified, the patient was placed on vancomycin. The patient denies any recent dental cleaning or dental procedures. Patient denies any teeth pain o r gum pain or problems with his dentures. The patient denies, other than urgency, no burning with u rination or suprapubic tenderness. He denies any pencil-thin like stools, blood in the stools. Oth er than weight loss related to his bout of recent edema issues, he does not recall any other signifi cant weight loss. He denies any fevers or shaking chills or night sweats. He otherwise denies any leighann abdominal pain. He did have a bout of diarrhea for 3 days about 4 or 5 weeks ago. He states that it was nonbloody and resolved on its own. He did not take any antibiotics for it. He denies a ny recent skin issues, rashes, wounds. He denies any sore throat. Infectious Disease is now consul melissa for further evaluation and opinion. REVIEW OF SYSTEMS: GENERAL: No fevers or shaking chills. HEAD: No headaches. EYES: No change i n vision. ENT: No sore throat or difficulty swallowing, ear pain or drainage. CARDIOVASCULAR: Cu rrently denies any chest pain or rapid heartbeat. RESPIRATORY: Denies any cough or sputum producti on. Does have shortness of breath. ABDOMEN: No nausea, vomiting, abdominal pain, or diarrhea. : No dysuria or hematuria but does have urgency. BACK: No back pain or side pain or flank pain. No lower extremity edema. Denies any edema now. MUSCULOSKELETAL: Denies any joint pains. SKIN: Denies any rashes or open wounds or recent skin problems. Rest of 10-point review of systems is ess entially negative except as noted above. PAST MEDICAL HISTORY: Significant for atrial fibrillation, abdominal aortic aneurysm, COPD, congest christian heart failure, ischemic cardiomyopathy. PAST SURGICAL HISTORY: Significant for abdominal aortic aneurysm, stenting. ALLERGIES: No known drug allergies. SOCIAL HISTORY: Recently quit smoking and drinking alcohol about 5 weeks ago. He lives with his wi fe who is a pharmacist. No recent travels outside of [place]. FAMILY HISTORY: They are currently but lived up into the 90s, and they both had dementia. MEDICATIONS: As per MAY. PHYSICAL EXAMINATION: VITAL SIGNS: Temperature current 36.8, pulse is 67, blood pressure 94/54, he art rate is 59, saturations are 95% on 3 L O2 via nasal cannula. Respiratory rate is 14. GENERAL: Patient is sitting up in a chair. No acute respiratory distress. Awake, alert, oriented x3. HEEN T: Head is normocephalic, atraumatic. Eyes: No conjunctival injection. No petechiae noted. Orop harynx is clear. No posterior erythema or thrush noted. Upper and lower dentures noted. CARDIOVAS CULAR: S1, S2. Regular rate and rhythm. He has a systolic murmur present. RESPIRATORY: Clear to auscultate bilaterally. No obvious rhonchi or rales. ABDOMEN: Positive bowel sounds in all quadr ants. Soft, nontender, nondistended. Organomegaly could not be well appreciated. EXTREMITIES: No lower extremity edema. MUSCULOSKELETAL: No obvious pain on palpation of the joints. SKIN: No ob vious rashes or open wounds. No obvious stigmata of endocarditis present. LABORATORY DATA: White blood cell count 9.4, hemoglobin 17.4, platelets 133, neutrophil count 72%. INR 1.4. Sodium 130, potassium 3.9, chloride is 94, bicarb is 24, BUN is 20, creatinine 0.8. TSH 3.8. Urinalysis: 1+ protein, 1+ blood, 4+ urobilinogen, leuk esterase negative, nitrates negative. Urine rbc's 1 to 3. MICROBIOLOGY: All 4 bottles growing out a Streptococcus species that is not group A, B, or pneumoco ccus. Urine culture is in progress and is pending. Imaging results have all been reviewed by me as stated above. ASSESSMENT: Streptococcus bacteremia/sepsis of uncertain source at present. PLAN: At this point in time, would discontinue vancomycin and start patient on ceftriaxone 2 g edith y IV. Would recommend a complete followup 2D echo to be done to start with to reassess for valvular vegetations or possible abscesses. We will check followup blood cultures in 48 hours. Unclear honey rce at this point in time. Patient did have some diarrhea about 4-5 weeks ago. Will recommend a CT of the abdomen and pelvis to further evaluate for source. Plan of care was discussed with the tiny ent and at bedside. Care was coordinated with the RN. I thank you very much for the opportunity to care for your patient in consultation. /[id number]/MODL
[2016-10-23] MEDS: MELATONIN 3 MG TAB PO SCH (20:32)
[2016-10-24 05:15] LABS: % IMMATURE GRANULYOCYTES 1.4 % (0.0-1.1); ABSOLUTE IMMATURE GRANULOCYTES 0.09 10^3/uL (0.00-0.10); ADD DIFF? NO; ADD MORPH? NO; ADD SCAN? NO; ATYPICAL LYMPHOCYTE FLAG 20 (0-99); FRAGMENT RBC FLAG 0 (0-99); HEMATOCRIT 43.3 % (40.0-51.0); LEFT SHIFT FLG 10 (0-99); LIPEMIA HEMOLYSIS FLAG 90 (0-99); MEAN CELL HEMOGLOBIN 35.1 pg (27.9-34.1); MEAN CELL HEMOGLOBIN CONCENTR. 34.6 g/dL (32.4-36.7); MEAN CELL VOLUME 101.4 fL (81.5-99.8); MEAN PLATELET VOLUME 10.7 fL (8.7-11.7); PLATELET CLUMPS FLAG 0 (0-99); PLATELET COUNT 111 10^3/uL (150-400); RED BLOOD CELL COUNT 4.27 10^6/uL (4.40-6.38); RED CELL DISTRIBUTION WIDTH 11.9 % (11.5-15.2)
[2016-10-24 05:29] LABS: ALANINE AMINOTRANSFERASE 41 IU/L (21-72); ALKALINE PHOSPHATASE 108 IU/L (38-126); ANION GAP 8 mEq/L (8-16); ASPARTATE AMINOTRANSFERASE 39 IU/L (17-59); BILIRUBIN,TOTAL 0.9 mg/dL (0.1-1.4); BILIRUBIN-CONJUGATED 0.3 mg/dL (0.0-0.5); BILIRUBIN-UNCONJUGATED 0.6 mg/dL (0.0-1.1); CALCIUM 8.8 mg/dL (8.5-10.4); CARBON DIOXIDE 31 mEq/l (22-31); CHLORIDE 93 mEq/L (97-110); CREATININE 0.8 mg/dL (0.7-1.3); GLOMERULAR FILTRATION RATE > 60; GLUCOSE 106 mg/dL (70-100); POTASSIUM 3.9 mEq/L (3.5-5.2); SODIUM 132 mEq/L (134-144); TOTAL PROTEIN 6.1 g/dL (6.3-8.2)
[2016-10-24] MEDS: FUROSEMIDE 40 MG TAB PO SCH (09:09)
[2016-10-24] MEDS: SPIRONOLACTONE 25 MG TAB PO SCH (09:09)
[2016-10-24] MEDS: NICOTINE 21 MG/24 HR PATCH TD SCH (09:09)
[2016-10-24] MEDS: POTASSIUM CL 20 MEQ TAB PO SCH (09:10)
[2016-10-24] MEDS: BUDESONIDE/FORMOTEROL 160/4.5 60 PUFFS/MDI IH SCH ×2 (09:10→20:44)
[2016-10-24] MEDS: APIXABAN 5 MG TAB PO SCH ×2 (09:10→20:51)
[2016-10-24] MEDS: METOPROLOL TARTRATE 25 MG TAB PO SCH ×3 (09:12→23:50)
--- NOTE | 2016-10-24 10:03 | PCMIDPN ---
Assessment/Plan: #Bacteremia secondary to alpha hemolytic strep, unclear source. No evidence of source from urine, dental (Has dentures). Still could consider GI with extensive diverticulosis although no active diverticulitis. TTE showed no convincing evidence of endocarditis -- Await final ID of Streptococcus to assess if needs colonoscopy in the long run -- duration of antibiotic therapy 2-4 weeks, may consider longer therapy with presence of aortic graft -- repeat blood cultures collected today, tentatively planned PICC line on Saturday -- continue ceftriaxone, reviewed side effects -- risks and benefits of PICC line placement reviewed -- will await repeat blood cultures only if persistent bacteremia will consider SULLY microbiology 10/22 blood cultures ( 2/) alpha hemolytic strep, id pending 10/22 Ucx 1 colony type 2000 CFU medications ceftriaxone 2 g IV daily, # 2 Subjective: severe malaise present on admission is improved. Patient is ambulating about the unit at times no diarrhea, rash, itching at bedside throughout history and exam Objective: Vital Signs Temp Pulse Resp BP Pulse Ox 36.5 C 52 L 16 112/64 98 10/24/16 07:19 10/24/16 09:12 10/24/16 07:19 10/24/16 09:12 10/24/16 07:19 Microbiology 10/22/16 19:26 Blood Panel (PCR) - Final Blood Streptococcus Laboratory Results 10/24/16 04:13 10/24/16 04:13 10/23/16 10/24/16 10/25/16 05:59 05:59 05:59 Intake Total 790 2581 Output Total 305 1175 Balance 485 1406 - Physical Exam General Appearance: alert, no apparent distress EENT: other (Dentures) Respiratory: lungs clear, No accessory muscle use Neck: supple Cardiac/Chest: bradycardia Extremities: No pedal edema Abdomen: normal bowel sounds, non-tender, soft Male Genitalia: No leon Skin: No rash, No embolic lesions Neuro/Psych: alert, normal mood/affect, oriented x 3 - Time Spent With Patient Time Spent with Patient: greater than 35 minutes (see details above in assessment) Time Spent with Patient: Greater than 35 minutes spent on this patients care, greater than 50% of time spent counseling, educating, and coordinating care regarding the above mentioned plan. ICD10 Worksheet Patient Problems: Problems Problem Status Onset Atrial fibrillation and flutter Acute Chronic Disease Mgmt/Transitional Care Acute Dyspnea Acute Peripheral edema Acute Rapid atrial fibrillation Acute
--- NOTE | 2016-10-24 10:05 | SOAPPROG ---
JIGAR Progress Note Assessment/Plan: Assessment: 1. Post ablation atrial fibrillation status post successful cardioversion to sinus rhythm with IV amiodarone. 2. Atrial flutter status post successful ablation. 3. 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 4. Moderate mitral regurgitation associated with pulmonary hypertension. 5. COPD 6. New diagnosis of Strep bacteremia. 7. History of AAA stenting with endovascular leak status post repair Procedure: Echocardiogram 10/23/2016. DC cardioversion in the emergency department x2 10/22/2016. 10/24/16 10:02 Impression: Maintaining sinus rhythm. Appropriately anticoagulated. Echocardiogram yesterday revealing normal LV function with stable valvular heart disease. Recommendations: Transition to amiodarone 200 mg a day. Continue current medical therapy for occult cardiomyopathy. Dr. Epps notified of patient's admission. She had requested follow-up of endovascular leak. This will be evaluated here in the hospital. 10/23/16 10:53 Impression: Clinically improved overnight as he converted with IV amiodarone. Shortness of breath has improved. He has had no fever or chills. He has no chest pain. Recommendations: Continue IV amiodarone load. Transition to oral amiodarone tomorrow. Continue current medical therapy for cardiomyopathy. No further cardiac testing at this point. Subjective: Feeling well over. Slept well. Cardiac review of systems is negative for chest pain, shortness of breath, PND , orthopnea, palpitations, syncope, near syncope, edema. Completed IV amiodarone load. Objective: Vital Signs Temp Pulse Resp BP Pulse Ox 36.5 C 52 L 16 112/64 98 10/24/16 07:19 10/24/16 09:12 10/24/16 07:19 10/24/16 09:12 10/24/16 07:19 Microbiology 10/22/16 19:26 Blood Panel (PCR) - Final Blood Streptococcus Laboratory Results 10/24/16 04:13 10/24/16 04:13 10/23/16 10/24/16 10/25/16 05:59 05:59 05:59 Intake Total 790 2581 Output Total 305 1175 Balance 485 1406 PT 17.7 SEC (12.0-15.0) H 10/23/16 04:11 INR 1.46 (0.83-1.16) H 08/08/17 04:11 Physical Exam - Physical Exam General Appearance: alert, no apparent distress EENT: PERRL/EOMI Neck: non-tender, full range of motion Respiratory: decreased breath sounds Cardiac/Chest: normal peripheral pulses, regular rate, rhythm, No edema Skin: warm/dry ICD10 Worksheet Patient Problems: Problems Problem Status Onset Atrial fibrillation and flutter Acute Chronic Disease Mgmt/Transitional Care Acute Rapid atrial fibrillation Acute Dyspnea Acute Peripheral edema Acute Review of Systems - Review of Systems Constitutional: denies: chills, fever EENTM: no symptoms reported Respiratory: no symptoms reported Cardiac: no symptoms reported Gastrointestinal/Abdominal: no symptoms reported Genitourinary: no symptoms Musculoskelatal: no symptoms Skin: no symptoms Neurological: no symptoms Hematologic/Lymphatic: no symptoms reported
[2016-10-24] MEDS: TIOTROPIUM INHALER 18 MCG/DOSE 5 DOSE/MDI IH SCH (10:47)
[2016-10-24] MEDS: cefTRIAXone 2 GM in D5W 50 ML IV SCH (10:58)
[2016-10-24] MEDS: AMIODARONE HCL 200 MG TAB PO SCH (10:58)
--- NOTE | 2016-10-24 15:39 | HOSPPROG ---
Hospitalist Progress Note Assessment/Plan: 71-year-old man recently admitted here for AFib flutter status post cardioversion and ablation. He comes back in today with increasing weakness and shortness of breath. He was 1st diagnosed about a month ago here with AFib flutter with started on anticoagulation at that time. He has not had any fevers chills or night sweats that he recalls although did have a low-grade fever on admission. 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 He has had increased urinary urgency and frequency since his admission last month when he was started on Lasix. # Recurrent rapid atrial fibrillation and flutter several days after an ablation procedure. Placed on amiodarone on admit and has since converted to sinus. oxygen saturations 98% on 3L Telemetry (personally reviewed and interpreted) remains in sinus rhythm- oxygen saturations 96% on 3L - start p.o. amiodarone today - continue Monitor rhythm and rate -continue anticoagulation # Streptococcus Bacteremia- no clear source although he has had some urinary symptoms since starting Lasix- possible transient diverticulitis? - change vancomycin to ceftriaxone today - blood cultures repeat drawn # COPD with chronic hypoxemic respiratory failure- WBC 6.2 this am no acute infectious sx - resume Spiriva and continue his usual respiratory medications. # AAA- Status post stent x2 # proph - eliquis # diet - cardiac # disposition- Pt will need greater then 2 midnight stay for ongoing eval for bacteremia and cardiac monitoring. I have discussed the case with RN - encouraging ambulation and continued use of MAXIM hose Subjective: slept well last night Objective: Vital Signs Temp Pulse Resp BP Pulse Ox 36.6 C 58 L 16 102/59 L 96 10/24/16 11:07 10/24/16 11:07 10/24/16 11:07 10/24/16 11:07 10/24/16 11:07 Microbiology 10/22/16 19:26 Blood Panel (PCR) - Final Blood Streptococcus Laboratory Results 10/24/16 04:13 10/24/16 04:13 10/23/16 10/24/16 10/25/16 05:59 05:59 05:59 Intake Total 790 2581 Output Total 305 1175 Balance 485 1406 PT 17.7 SEC (12.0-15.0) H 10/23/16 04:11 INR 1.46 (0.83-1.16) H 10/23/16 04:11 - Physical Exam Constitutional: no apparent distress Eyes: anicteric sclera Ears, Nose, Mouth, Throat: moist mucous membranes Cardiovascular: regular rate and rhythym Respiratory: no respiratory distress, no rales or rhonchi Gastrointestinal: normoactive bowel sounds, soft, non-tender abdomen Genitourinary: no bladder fullness Skin: warm Musculoskeletal: No asymmetric calves Neurologic: AAOx3 Psychiatric: interacting appropriately, not anxious Lymph, Heme, Immunologic: no cervical LAD ICD10 Worksheet Patient Problems: Problems Problem Status Onset Atrial fibrillation and flutter Acute Chronic Disease Mgmt/Transitional Care Acute Dyspnea Acute Peripheral edema Acute Rapid atrial fibrillation Acute
[2016-10-24] MEDS: MELATONIN 3 MG TAB PO SCH (20:51)
[2016-10-25 05:23] LABS: ANION GAP 10 mEq/L (8-16); CALCIUM 8.6 mg/dL (8.5-10.4); CARBON DIOXIDE 28 mEq/l (22-31); CHLORIDE 95 mEq/L (97-110); CREATININE 0.7 mg/dL (0.7-1.3); GLOMERULAR FILTRATION RATE > 60; GLUCOSE 110 mg/dL (70-100); SODIUM 133 mEq/L (134-144)
--- NOTE | 2016-10-25 08:36 | SOAPPROG ---
[facility] Progress Note Assessment/Plan: Assessment: 1. Post ablation atrial fibrillation status post successful cardioversion to sinus rhythm with IV amiodarone. 2. Atrial flutter status post successful ablation. 3. 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 4. Moderate mitral regurgitation associated with pulmonary hypertension. 5. COPD 6. New diagnosis of Strep bacteremia. 7. History of AAA stenting with endovascular leak status post repair Procedure: Echocardiogram 10/23/2016. DC cardioversion in the emergency department x2 10/22/2016. 10/25/16 08:34 Impression: In sinus rhythm with brief paroxysms of afib. Anticoagulated No change in medical management. 10/24/16 10:02 Impression: Maintaining sinus rhythm. Appropriately anticoagulated. Echocardiogram yesterday revealing normal LV function with stable valvular heart disease. Recommendations: Transition to amiodarone 200 mg a day. Continue current medical therapy for occult cardiomyopathy. Dr. Epps notified of patient's admission. She had requested follow-up of endovascular leak. This will be evaluated here in the hospital. 10/23/16 10:53 Impression: Clinically improved overnight as he converted with IV amiodarone. Shortness of breath has improved. He has had no fever or chills. He has no chest pain. Recommendations: Continue IV amiodarone load. Transition to oral amiodarone tomorrow. Continue current medical therapy for cardiomyopathy. No further cardiac testing at this point. Subjective: Didn't sleep well Negative cardiac ROS Objective: Medications Generic Name Dose Route Start Last Admin Trade Name Freq PRN Reason Stop Dose Admin Amiodarone HCl 200 mg 10/24/16 10:15 10/24/16 10:58 Amiodarone Hcl PO 04/22/17 10:14 200 mg DAILY MIRTA Apixaban 5 mg 10/22/16 21:00 10/24/16 20:51 Eliquis PO 04/20/17 20:59 5 mg BID MIRTA Furosemide 40 mg 10/22/16 17:53 Lasix PO 04/20/17 17:52 DAILY PRN EDEMA Metoprolol Tartrate 25 mg 10/22/16 21:00 10/24/16 23:50 Lopressor PO 04/20/17 20:59 25 mg BID MIRTA Spironolactone 25 mg 10/23/16 09:00 10/24/16 09:09 Aldactone PO 04/21/17 08:59 25 mg DAILY MIRTA Vital Signs Temp Pulse Resp BP Pulse Ox 36.7 C 52 L 15 87/52 L 96 10/25/16 04:00 10/25/16 04:00 10/25/16 04:00 10/25/16 04:00 10/25/16 04:00 Microbiology 10/22/16 19:26 Blood Panel (PCR) - Final Blood Streptococcus Laboratory Results 10/24/16 04:13 10/25/16 04:05 10/24/16 10/25/16 10/26/16 05:59 05:59 05:59 Intake Total 2581 1680 Output Total 1175 Balance 1406 1680 PT 17.7 SEC (12.0-15.0) H 10/23/16 04:11 INR 1.46 (0.83-1.16) H 10/23/16 04:11 tele : sinus this am. Physical Exam - Physical Exam General Appearance: alert, no apparent distress EENT: PERRL/EOMI Neck: non-tender, full range of motion Respiratory: chest non-tender, lungs clear Cardiac/Chest: regular rate, rhythm, No edema ICD10 Worksheet Patient Problems: Problems Problem Status Onset Atrial fibrillation and flutter Acute Chronic Disease Mgmt/Transitional Care Acute Rapid atrial fibrillation Acute Dyspnea Acute Peripheral edema Acute
[2016-10-25] MEDS: AMIODARONE HCL 200 MG TAB PO SCH (08:42)
[2016-10-25] MEDS: FUROSEMIDE 40 MG TAB PO SCH (08:42)
[2016-10-25] MEDS: NICOTINE 21 MG/24 HR PATCH TD SCH (08:42)
[2016-10-25] MEDS: APIXABAN 5 MG TAB PO SCH ×2 (08:43→19:47)
[2016-10-25] MEDS: SPIRONOLACTONE 25 MG TAB PO SCH (08:43)
[2016-10-25] MEDS: POTASSIUM CL 20 MEQ TAB PO SCH (08:43)
[2016-10-25] MEDS: cefTRIAXone 2 GM in D5W 50 ML IV SCH (08:44)
[2016-10-25] MEDS: METOPROLOL TARTRATE 25 MG TAB PO SCH ×2 (09:00→19:47)
[2016-10-25] MEDS: TIOTROPIUM INHALER 18 MCG/DOSE 5 DOSE/MDI IH SCH (10:25)
[2016-10-25] MEDS: BUDESONIDE/FORMOTEROL 160/4.5 60 PUFFS/MDI IH SCH ×2 (10:26→19:43)
--- NOTE | 2016-10-25 12:34 | SOAPPROG ---
SO[facility] Progress Note Assessment/Plan: Assessment: Post AAA stentgraft 2011. Post endoleak embolization 03/2016. Strep minus bacteremia, on Abx. CT with no signs of chantell-aortic inflammation. Endoleak now successfully treated , with aneurysm sac size decreasing. Plan: D/W Dr. Lawrence. Difficult to say whether aortic stentgraft is involved in any fashion in this bacteremia. No CT or physical exam evidence of involvement but oral seeding is a possibility according to ID. Treatment plan at this point one way or the other is the same: either short term IV abx, then monitor, or termination clerk oral abx suppression. Still no clear cut source identified. Hope is that medical management can prevent necessity of surgical removal of stentgraft at any point for one reason or another, which would be an extensive surgery for this patient. Discussed in detail with patient and his in the room. 10/25/16 12:22 Subjective: Visited patient today with Dr. Lawrence. Recent events noted. No abd complaints at this time. Patient has not had any abd pain during current episode of bacteremia. Objective: Vital Signs Temp Pulse Resp BP Pulse Ox 36.6 C 55 L 19 92/54 L 93 10/25/16 08:00 10/25/16 10:29 10/25/16 10:29 10/25/16 08:00 10/25/16 10:29 Microbiology 10/22/16 23:59 Urine Culture - Final Urine,Clean Catch One [place] Type 10/22/16 19:26 Blood Panel (PCR) - Final Blood Streptococcus Laboratory Results 10/24/16 04:13 10/25/16 04:05 10/24/16 10/25/16 10/26/16 05:59 05:59 05:59 Intake Total 2581 1680 Output Total 1175 Balance 1406 1680 PT 17.7 SEC (12.0-15.0) H 10/23/16 04:11 INR 1.46 (0.83-1.16) H 10/23/16 04:11 Labs and cultures noted. CT reviewed. ICD10 Worksheet Patient Problems: Problems Problem Status Onset Atrial fibrillation and flutter Acute Chronic Disease Mgmt/Transitional Care Acute Dyspnea Acute Peripheral edema Acute Rapid atrial fibrillation Acute
--- NOTE | 2016-10-25 13:22 | PCMIDPN ---
Assessment/Plan: Assessment: Streptococcus Mitis/oralis bacteremia with no clear source. Patient's echocardiogram did not show any evidence for vegetation. Suspect instead that the patient either has a primary bacteremia with no source or more worrying may have seeded a part of his endovascular stent in the aorta with the oral bacteria. Reviewed the CT scan in the does not seem to be any aortic wall inflammation or indication that the bacteria has invaded into the surrounding tissue. Plan to treat for 2 weeks with ceftriaxone and then follow with serial blood cultures after completion. Plan: 1. Continue ceftriaxone. Plan to treat for duration of 2 weeks from cleared cultures. 2. Follow clinical course and laboratory data. 10/25/16 18:50 10/25/16 18:52 Subjective: Patient is feeling well. He is sitting up in a chair. His is in the room. No new complaints. Denies fevers and chills. Objective: Ceftriaxone # 3 Vital Signs Temp Pulse Resp BP Pulse Ox 36.6 C 77 18 122/78 H 96 10/25/16 12:00 10/25/16 12:00 10/25/16 12:00 10/25/16 12:00 10/25/16 12:00 Microbiology 10/22/16 23:59 Urine Culture - Final Urine,Clean Catch One [place] Type 10/22/16 19:26 Blood Panel (PCR) - Final Blood Streptococcus Laboratory Results 10/24/16 04:13 10/25/16 04:05 10/24/16 10/25/16 10/26/16 05:59 05:59 05:59 Intake Total 2581 1680 Output Total 1175 Balance 1406 1680 - Physical Exam General Appearance: WD/WN, alert, no apparent distress, non-toxic Respiratory: lungs clear, normal breath sounds, No respiratory distress Cardiac/Chest: regular rate, rhythm, No tachycardia, No systolic murmur Extremities: non-tender, normal inspection Skin: normal color, warm/dry, No rash Neuro/Psych: alert, normal mood/affect, oriented x 3 ICD10 Worksheet Patient Problems: Problems Problem Status Onset Atrial fibrillation and flutter Acute Chronic Disease Mgmt/Transitional Care Acute Dyspnea Acute Peripheral edema Acute Rapid atrial fibrillation Acute
[2016-10-25] MEDS ORDERED: MELATONIN 3 MG TAB PO SCH (15:38)
--- NOTE | 2016-10-25 15:41 | HOSPPROG ---
Hospitalist Progress Note Assessment/Plan: 71-year-old man recently admitted here for AFib flutter status post cardioversion and ablation. He comes back in today with increasing weakness and shortness of breath. He was 1st diagnosed about a month ago here with AFib flutter with started on anticoagulation at that time. He has not had any fevers chills or night sweats that he recalls although did have a low-grade fever on admission. 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 He has had increased urinary urgency and frequency since his admission last month when he was started on Lasix. # Recurrent rapid atrial fibrillation and flutter several days after an ablation procedure-Placed on amiodarone on admit Overnight popped into and out of afib - Telemetry (personally reviewed and interpreted) sinus rhythm this am- potassium 4.0 oxygen saturations 98% on 3L - cont p.o. amiodarone - cont PO metoprolol - continue Monitor rhythm and rate - continue anticoagulation # Streptococcus Bacteremia- no clear source although he has had some urinary symptoms since starting Lasix- possible transient diverticulitis? Repeat blood cultures remain NGTD - cont IV ceftriaxone - PICC line tomorrow if cultures remain clear # COPD with chronic hypoxemic respiratory failure- WBC 6.2 - no acute infectious sx - resume Spiriva and continue his usual respiratory medications. # AAA- Status post stent graft 2011 and then leak repair 03/2016 - IR following CT (personally reviewed and interpreted) without chantell-aortic inflammation # proph - eliquis # diet - cardiac # disposition- Pt will need greater then 2 midnight stay for ongoing eval for bacteremia and cardiac monitoring. I have discussed the case with RN - patient with some soft blood pressures overnight - will monitor closely may need to adjust cardiac meds Subjective: denies chest pain - didnt sleep well Objective: Vital Signs Temp Pulse Resp BP Pulse Ox 36.6 C 77 18 122/78 H 96 10/25/16 12:00 10/25/16 12:00 10/25/16 12:00 10/25/16 12:00 10/25/16 12:00 Microbiology 10/22/16 23:59 Urine Culture - Final Urine,Clean Catch One [place] Type 10/22/16 19:26 Blood Panel (PCR) - Final Blood Streptococcus Laboratory Results 10/24/16 04:13 10/25/16 04:05 10/24/16 10/25/16 10/26/16 05:59 05:59 05:59 Intake Total 2581 1680 Output Total 1175 Balance 1406 1680 PT 17.7 SEC (12.0-15.0) H 10/23/16 04:11 INR 1.46 (0.83-1.16) H 10/23/16 04:11 - Physical Exam Constitutional: chronically ill appearing Eyes: anicteric sclera Ears, Nose, Mouth, Throat: moist mucous membranes Cardiovascular: regular rate and rhythym Respiratory: no respiratory distress, no rales or rhonchi Gastrointestinal: normoactive bowel sounds, soft, non-tender abdomen Genitourinary: no bladder fullness Skin: warm, normal color Musculoskeletal: No asymmetric calves Neurologic: AAOx3 Psychiatric: interacting appropriately, not anxious Lymph, Heme, Immunologic: no cervical LAD ICD10 Worksheet Patient Problems: Problems Problem Status Onset Atrial fibrillation and flutter Acute Chronic Disease Mgmt/Transitional Care Acute Dyspnea Acute Peripheral edema Acute Rapid atrial fibrillation Acute
[2016-10-26] MEDS ORDERED: ALTEPLASE 2 MG VIAL IVP PRN (08:34)
[2016-10-26 08:53] VITALS: BP 100/64; PULSE 69; RESP 18; TEMP 98; O2SAT 95
[2016-10-26] MEDS: NICOTINE 21 MG/24 HR PATCH TD SCH (09:22)
[2016-10-26] MEDS: BUDESONIDE/FORMOTEROL 160/4.5 60 PUFFS/MDI IH SCH (09:23)
[2016-10-26] MEDS: TIOTROPIUM INHALER 18 MCG/DOSE 5 DOSE/MDI IH SCH (09:24)
[2016-10-26] MEDS: AMIODARONE HCL 200 MG TAB PO SCH (09:25)
[2016-10-26] MEDS: cefTRIAXone 2 GM in D5W 50 ML IV SCH (09:25)
--- NOTE | 2016-10-26 10:04 | PCMIDPN ---
Assessment/Plan: #Bacteremia secondary to s. oralis/mitis. No evidence of source from urine, dental (Has dentures). Still could consider GI with extensive diverticulosis although no active diverticulitis. TTE showed no convincing evidence of endocarditis Concern over seeding aortic graft but no evidence of disease on CT scan --continue ceftriaxone 2gm through 11/07, Follow up with Dr. Lawrence --PICC line placed today --1300 infusion center appointment microbiology 10/24 blood cx (2) NGTD 10/22 blood cultures ( 2/2) s oralis 10/22 Ucx 1 colony type 2000 CFU medications ceftriaxone 2 g IV daily, # 4, 11/07 stop 10/26/16 10:14 Subjective: no c/o ready to go home Objective: Vital Signs Temp Pulse Resp BP Pulse Ox 36.7 C 69 18 100/64 95 10/26/16 07:35 10/26/16 07:35 10/26/16 07:35 10/26/16 07:35 10/26/16 07:35 Microbiology 10/22/16 19:37 Blood Culture - Final Blood Streptococcus Mitis/Oralis 10/22/16 19:26 Blood Culture - Final Blood Streptococcus Mitis/Oralis Blood Panel (PCR) - Final Streptococcus 10/22/16 23:59 Urine Culture - Final Urine,Clean Catch One [place] Type Laboratory Results 10/24/16 04:13 10/25/16 04:05 10/25/16 10/26/16 10/27/16 05:59 05:59 05:59 Intake Total 1680 910 240 Balance 1680 910 240 General Appearance: alert, no apparent distress EENT: Dentures Respiratory: lungs clear, No accessory muscle use Neck: supple Cardiac/Chest:RRR Extremities: No pedal edema Abdomen: normal bowel sounds, non-tender, soft Neuro/Psych: alert, normal mood/affect, oriented x 3 ICD10 Worksheet Patient Problems: Problems Problem Status Onset Atrial fibrillation and flutter Acute Chronic Disease Mgmt/Transitional Care Acute Dyspnea Acute Peripheral edema Acute Rapid atrial fibrillation Acute
[2016-10-26] MEDS: POTASSIUM CL 20 MEQ TAB PO SCH (10:35)
[2016-10-26] MEDS: SPIRONOLACTONE 25 MG TAB PO SCH (10:35)
[2016-10-26] MEDS: APIXABAN 5 MG TAB PO SCH (10:35)
[2016-10-26] MEDS: FUROSEMIDE 40 MG TAB PO SCH (10:35)
[2016-10-26] MEDS: METOPROLOL TARTRATE 25 MG TAB PO SCH (10:36)
--- NOTE | 2016-10-26 17:11 | GDS ---
[f rep st] DISCHARGE SUMMARY DISCHARGE DIAGNOSES: 1. Streptococcus bacteremia. 2. Atrial fibrillation with rapid ventricular response. 3. Chronic obstructive pulmonary disease. 4. Abdominal aortic aneurysm. HISTORY OF PRESENT ILLNESS: A 71-year-old male recently admitted with atrial fib and flutter, statu s post cardioversion and ablation, who re-presents with weakness. For details of patient's initial presentation, please see the history and physical dated 10/22/2016. CONSULTATIONS: Consultative services on this patient include Infectious Disease and Cardiology. PROCEDURES: On 10/26/2016, patient had a PICC line placement. On 10/22/2016, patient had a transth oracic echocardiogram that showed no valvular vegetations. HOSPITAL COURSE BY ISSUE: 1. Streptococcus bacteremia. The source of this bacteremia is unclear at the time of the patient's disposition and include possible transient diverticulitis. The patient was initiated on IV antibio tics during the stay and had a PICC line placed after his cultures were clear x72 hours. He is bein g discharged on 2 g of IV Rocephin to be administered daily in the Infusion Center. He will continu e this treatment through 11/07/2016. 2. Atrial fibrillation with rapid ventricular response. The patient was on outpatient amiodarone, was loaded with IV amiodarone and transitioned to once daily amiodarone. He is being discharged on this dose and will follow in the outpatient setting. On the day of disposition, patient's heart rat es were well controlled in the 60s. Continue on his outpatient beta-shelby dose, as well. 3. AAA. Patient is status post graft stenting and repair of an endovascular leak. Imaging on this hospitalization was stable. He will be followed in the outpatient setting by his PCP. MEDICATIONS AT THE TIME OF DISPOSITION: Please reference med rec printed on 10/26/2016. FOLLOWUP APPOINTMENTS: 1. With [facility]. 2. With Infectious Disease. 3. With his outpatient PCP. TIME SPENT: I spent greater than 30 minutes in the planning and coordination of this discharge. /[id number]/MODL
== END 2016-10-26 11:30 | disposition home or self-care (01) | DRG 309 ==
LOC: F2W 17:29 → OBSVTOIN 18:27
PROVIDERS: ADMIT Internal Medicine; ATTEND Internal Medicine
PROC: 5A2204Z Restoration of Cardiac Rhythm, Single (ICD-10-PCS; principal; 2016-10-22)
PROC: 02HV33Z Insertion of Infusion Device into Superior Vena Cava, Percutaneous Approach (ICD-10-PCS; 2016-10-26)
DX: I48.91 Unspecified atrial fibrillation (principal); J96.11 Chronic respiratory failure with hypoxia; R78.81 Bacteremia; I48.92 Unspecified atrial flutter; I34.0 Nonrheumatic mitral (valve) insufficiency; Z72.0 Tobacco use; J44.9 Chronic obstructive pulmonary disease, unspecified; Z95.5 Presence of coronary angioplasty implant and graft; B95.5 Unspecified streptococcus as the cause of diseases classified elsewhere; Z79.01 Long term (current) use of anticoagulants; L89.311 Pressure ulcer of right buttock, stage 1; L89.321 Pressure ulcer of left buttock, stage 1
CPT/HCPCS: 96374; C1751; J0282; J0696; J2704; J3370; Q9967

== ENCOUNTER → 2016-11-16 | Outpatient (CLI) | payer OTHER | LOC: BHFA 10:30 | PROVIDERS: ATTEND Internal Medicine Cardiovascular Disease | DX: I48.91 Unspecified atrial fibrillation (principal); I48.92 Unspecified atrial flutter ==

== ENCOUNTER → 2017-05-06 | Outpatient (CLI) | payer OTHER | LOC: BHFA 13:15 | PROVIDERS: ATTEND Internal Medicine | DX: I50.9 Heart failure, unspecified (principal) ==

== ENCOUNTER → 2017-08-19 | Outpatient (CLI) | payer OTHER | LOC: BHFA 11:00 | PROVIDERS: ATTEND Internal Medicine Cardiovascular Disease | DX: I48.91 Unspecified atrial fibrillation (principal) ==

== ENCOUNTER → 2017-08-30 | Outpatient (CLI) | payer OTHER | LOC: BHFA 10:30 | PROVIDERS: ATTEND Internal Medicine Cardiovascular Disease | DX: I48.91 Unspecified atrial fibrillation (principal) ==

== ENCOUNTER → 2017-09-30 | Outpatient (CLI) | payer OTHER ==
[~2017-09-30] MED LIST changes: +IOPAMIDOL (ISOVUE 370) 100 ML BTL IV ONE; -IOPAMIDOL (ISOVUE-370) 150 ML BTL IV ONE
== END ==
LOC: FIMAGING 13:07
PROVIDERS: ATTEND Radiology Diagnostic Radiology
DX: I71.4 Abdominal aortic aneurysm, without rupture (principal); Z95.828 Presence of other vascular implants and grafts
CPT/HCPCS: 74174; Q9967

== ENCOUNTER → 2017-12-12 | Outpatient (CLI) | payer OTHER | LOC: FIMAGING 12:58 | PROVIDERS: ATTEND Internal Medicine Pulmonary Disease | DX: J44.9 Chronic obstructive pulmonary disease, unspecified (principal); J98.4 Other disorders of lung; R91.1 Solitary pulmonary nodule ==

== ENCOUNTER → 2018-07-22 | Outpatient (CLI) | payer OTHER | LOC: FIMAGING 14:08 | PROVIDERS: ATTEND Radiology Diagnostic Radiology | DX: I71.4 Abdominal aortic aneurysm, without rupture (principal) | CPT/HCPCS: 74174; Q9967; 82565-PO ==

== ENCOUNTER → 2018-09-09 | Outpatient (CLI) | payer OTHER | LOC: FIMAGING 13:29 ==